=== PATIENT | male | born 1940 | race Caucasian/White ===

== ENCOUNTER 2018-09-16 10:40 | Inpatient (IN) | payer OTHER, SELFPAY ==
[2018-09-16] VITALS (36 sets, daily range): BP systolic 113–167; BP diastolic 53–77; PULSE 69–107; RESP 2–35; TEMP 36.7–38.9; O2SAT 82–98
--- NOTE | 2018-09-16 10:57 | W.ED.GENAD ---
Discharge Plan Disposition Patient Disposition: [facility] INPATIENT Condition: Stable Discharge Details Chief Complaint: SOB Clinical Impression: Carcinoma of lung, Community acquired pneumonia, URI (upper respiratory infection), Fall Primary Care Provider: Joe Quiñones ED Provider: Jake Ratliff Home Meds and New Rx's Prescriptions: No Action Flovent HFA 120 PUFF HFA aerosol inhaler 2 puff Inhalation BID Qty: 1 RF: 0 ipratropium-albuterol 3 ML solution for nebulization 3 ml UPD QID PRN PRN (Reason: Shortness Of Breath) Qty: 60 RF: 0 prednisone 10 MG tablet 40 mg PO DAILY RF: 0 multivitamin [Once Daily] 1 EACH tablet 1 tab PO DAILY RF: 0 tamsulosin 0.4 MG capsule 0.4 mg PO DAILY RF: 0 Serevent Diskus 1 EACH blister with device 1 puff Inhalation BID RF: 0 albuterol sulfate [ProAir HFA] 200 PUFF/INH HFA aerosol inhaler 2 puff Inhalation PRN PRNRF: 0 omega-3 fatty acids-fish oil [Fish Oil] 1 EACH capsule 1 cap PO DAILY RF: 0 azithromycin 250 mg Tablet 250 mg PO DAILY RF: 0 Medical Decision Making This is a pleasant 77-year-old male with a past medical history of COPD, who presents today for evaluation of cough, shortness of breath, fever. He is tachycardic, tachypneic, mildly hypoxic with O2 sat in the 88. He is not on home oxygen. Patient has very other few complaints. He has had notable cough with productive yellow sputum. Lung sounds are diminished, with rales. Physical exam demonstrates no significant signs of trauma. Because of the patient's recent falls, as well as his other symptoms we will get a CT of the head neck and chest to rule out any rib fractures, hemothorax, rule out pneumonia, acute intracranial bleed or neck pathology. I do feel that the patient is most likely suffering from community-acquired pneumonia in conjunction with a COPD exacerbation. He is already on steroids, will start Rocephin and doxycycline, give breathing treatments and reassess. He will require admission due to his respiratory status fever and other symptoms. 12:22 PM Influenza has returned negative, laboratory workup shows no significant white count, renal function stable. Troponin within normal limits, EKG shows no ST changes. Creatinine stable. Urinalysis negative for any signs of UTI 12:59 PM In spite of the patient's influenza being negative I do feel that he demonstrate signs or symptoms concerning for flu. Recommend serology, we will start Tamiflu. CT scan of the chest per virtual radiology demonstrates evidence of a notable mass in his lungs concerning for carcinoma, in addition to potential metastasis. There is also evidence of a mild right lower lobe pneumonia. CT scan of the head demonstrates a low density lesion in the right frontal lobe, consistent with cerebral contusion versus acute nonhemorrhagic infarct versus cerebral metastases. Patient's neurologic exam shows no focal neurologic deficits, and his signs and symptoms are consistent with stroke. I do feel that contusion or potential metastases are more likely. I had a long discussion with the patient and family regarding this. I do feel he is suffering from COPD exacerbation, community-acquired pneumonia, suspected influenza or viral URI, as well as potential new cancer. With no evidence of PE I do not think that thrombolytics or significant anticoagulants are indicated at this time. I discussed the case with Dr. Marsh, she agrees with the assessment and plan. We will put in bridging orders on behalf of her at this time. I have extensively reviewed the treatment plan with the patient. I have addressed all patient concerns at this time. I have also discussed the plan with the admitting physician and they agree with the current assessment and plan and have agreed to assume responsibility for the patient. All parties demonstrate verbal understanding and agreement with our assessment and plan at this time. EKG 11: 04 Rate 98 was normal, sinus rhythm, no significant ST elevations or depressions, no T wave inversions. No Q waves. FINDINGS: Pulmonary arteries: No pulmonary embolus or aortic dissection. Aorta: Normal. No aortic aneurysm. No aortic dissection. Great vessels off aortic arch: Calcification of the thoracic aorta and/or great vessels consistent with atherosclerotic vessel disease. Lungs: Interval appearance of 3.1 cm lobulated spiculated right upper lobe mass most consistent with lung carcinoma. Severe centrilobular emphysema. 8mm lateral segment right middle lobe pulmonary nodule which could represent pulmonary metastasis versus other lesion. Inferior segment lingula or atelectasis or scarring. Mild right lower lobe pneumonia. Pleural space: Normal. No pneumothorax. No pleural effusion. Heart: Moderate calcified coronary artery disease. Lymph nodes: Possible 2.3 x 1.4 cm right hilar lymph node metastasis. Bones/joints: Mild thoracic spondylosis. No obvious fractures. Soft tissues: Unremarkable. IMPRESSION: 1. Interval appearance of 3.1 cm lobulated spiculated right upper lobe mass most consistent with lung carcinoma. 2. Severe centrilobular emphysema. 3. Possible 2.3 x 1.4 cm right hilar lymph node metastasis. 4. 8mm lateral segment right middle lobe pulmonary nodule which could represent pulmonary metastasis versus other lesion. 5. Mild right lower lobe pneumonia. 6. Moderate calcified coronary artery disease. 7. No obvious fractures. 8. No pulmonary embolus or aortic dissection. Dictated and Authenticated by: Omar Rojo MD. Findings: Brain: Low-density in the right frontal lobe consistent with cerebral contusion versus acute nonhemorrhagic infarct versus other lesion such as cerebral metastasis. Ventricles: Normal. No ventriculomegaly. Bones/joints: Unremarkable. No acute fracture. Sinuses: Visualized sinuses are unremarkable. No acute sinusitis. Mastoid air cells: Visualized mastoid air cells are unremarkable. No mastoid effusion. Soft tissues: Soft tissue swelling/hematoma over the bilateral forehead, right greater than left. Impression: 1. Low-density in the right frontal lobe consistent with cerebral contusion versus acute nonhemorrhagic infarct versus other lesion such as cerebral metastasis. 2. Soft tissue swelling/hematoma over the bilateral forehead, right greater than left. HPI General Date/Time Provider Initiated Documentation: 09/16/18 10:52. HPI Narrative: This is a 77-year-old male with a past medical history of COPD, who presents today for evaluation of shortness of breath. For the last week the patient has had a cough, with productive yellow sputum. He was recently started on azithromycin and prednisone within the last 2 days. He has been taking this as directed. This evening he developed a notable fever, he became more short of breath, he denies significant chest pain. His cough is continued, but he has had a notable worsening of his symptomatology. Comes to the ER today for further evaluation. Patient denies any history of cardiac disease, pulmonary embolism, recent surgeries or procedures. Patient denies any other complaints of vomiting, diarrhea, headache, neck pain, vomiting. Patient has no other complaints at this time. Patient did not get the flu shot this year. Of note the patient also states that during [employer] 2 weeks ago he did have 1 or 2 falls, and may have hit his head or chest during this time. He denies any other falls or symptoms. Related Data Home Medications Medication Instructions Recorded Confirmed Flovent HFA 2 puff INHALATION BID #1 inh 10/15/14 09/16/18 ipratropium-albuterol 3 ml UPD QID PRN PRN #60 vial 10/15/14 09/16/18 Serevent Diskus 1 puff INHALATION BID 11/18/17 09/16/18 albuterol sulfate [ProAir HFA] 2 puff INHALATION PRN PRN 11/18/17 11/18/17 multivitamin [Once Daily] 1 tab PO DAILY 11/18/17 09/16/18 omega-3 fatty acids-fish oil [Fish 1 cap PO DAILY 11/18/17 09/16/18 Oil] prednisone 40 mg PO DAILY 11/18/17 09/16/18 tamsulosin 0.4 mg PO DAILY 11/18/17 11/18/17 azithromycin 250 mg PO DAILY 09/16/18 09/16/18 Previous Rx's Medication Instructions Recorded Flovent HFA 2 puff INHALATION BID #1 inh 10/15/14 ipratropium-albuterol 3 ml UPD QID PRN PRN #60 vial 10/15/14 Allergies Allergy/AdvReac Type Severity Reaction Status Date / Time No Known Allergies Allergy Unverified 09/16/18 10:55 General Stated Complaint: SOB CEE: 2 Review of Systems Review of Systems All systems reviewed & are unremarkable except as noted in HPI and below PFSH Social History Smoking and Tabacco status: Former Tobacco Use Exam Narrative Exam Narrative: 1.Const: Well-nourished, Well-developed, appearing stated age 2.Eyes: PERRL, no conjunctival injection, and symmetrical lids. 3.ENT: Atraumatic external nose and ears. Moist MM. Neck: Symmetric, trachea midline, No thyromegaly. Patient demonstrates good movement of cervical neck. There is no nuchal rigidity, no nuchal tenderness. Patient is able to flex the neck without any difficulty or significant pain. Negative Kernig's and Brudzinski sign. There is no evidence of raccoon eyes, red sign, CSF rhinorrhea, mastoid tenderness, cranial crepitus, hemotympanum, exophthalmos, or hyphema. 4.CVS: +S1/S2, No murmurs or gallops. Peripheral pulses 2+ and equal in all extremities. Brisk capillary refill in all extremities. Radial pulse +2 bilaterally. 5.RESP: Tachypnea, notable wheezes and rhonchi throughout, wheezes, and diminished breath sounds. Crackles in the bases. 6.GI: Soft, Nontender/Nondistended, No hepatosplenomegaly. No guarding or rebound. 7.MSK: Normocephalic/Atraumatic, Extremities w/o deformity or ttp No cyanosis or clubbing, Normal movement of all extremities. No midline tenderness to palpation over the CTLS spine. Normal ROM in flexion, extension, side bend, and rotation. Patient has +5 out of 5 strength in the lower extremities in dorsiflexion and plantarflexion, knee flexion and extension, hip flexion and extension. There is +2 over 2 dorsalis pedis pulses bilaterally. There is normal sensation to the skin with light touch at the foot, knee, and hip. Normal saddle sensation. Good sensation over the deep sural nerve area bilaterally. Rectal exam deferred. Reflexes are +2 over 4 in the patellar reflex bilaterally. +5 out of 5 strength in the medial, ulnar, radial nerve distribution bilaterally in the hands as well as intact light touch sensation to these dermatomes on the hands 8.Skin: Warm, Dry. No rashes or lesions. 9.Neuro: inspector type II-XII grossly intact. Sensation grossly intact, no focal neurologic deficits. 10.Psych: (AAO) x3. Appropriate mood and affect Course Vital Signs Temperature 38.9 C H 09/16/18 10:49 Pulse 106 H 09/16/18 10:49 Respiratory Rate 34 H 09/16/18 10:49 Blood Pressure 167/77 H 09/16/18 10:49 Pulse Oximetry 82 L 09/16/18 10:49 Temperature 38.9 C H 09/16/18 10:49 Temperature Source Skin 09/16/18 10:49 Pulse 106 H 09/16/18 10:49 Respiratory Rate 34 H 09/16/18 10:49 Respiratory Effort Labored 09/16/18 10:52 Blood Pressure 167/77 H 09/16/18 10:49 Pulse Oximetry 82 L 09/16/18 10:49 Pain Level 2 09/16/18 10:49 Lab/Test Results Lab/Test Results: 09/16/18 10:53 Blood Blood Culture - Pending 09/16/18 10:53 Blood Blood Culture - Pending
[2018-09-16] MEDS: Normal Saline 1,000 ML 1000 ML IV (11:05)
[2018-09-16] MEDS: Albuterol/Ipratropium 3 ML UPD VIAL UPD ×3 (11:05→23:18)
[2018-09-16 11:08] LABS: HCO3 (Venous) 29 mmol/L (22-28); O2 Sat (Venous) 77 % (70-80); TCO2 (Venous) 26 mmol/L (22-29); pCO2 (Venous) 43 mm/Hg (34-47); pH (Venous) 7.44 (7.32-7.43); pO2 (Venous) 40 mm/Hg (28-44)
[2018-09-16] MEDS: methylPREDNISolone SUCC 125 MG VIAL IVP (11:09)
[2018-09-16] MEDS: Acetaminophen 500 MG TAB 1000 MG PO (11:10)
[2018-09-16 11:17] LABS: Abs Immature Grans 0.02 k/cumm (0.0-0.09); Absolute Basophil Count 0.01 k/cumm (0.0-0.2); Absolute Lymphocyte Count 0.41 k/cumm (1.2-3.4); Absolute Monocyte Count 0.56 k/cumm (0.11-0.7); Basophils % 0.1; HCT 40.7 % (40.0-50.0); HGB 13.7 g/dL (13.5-17.5); Immature Grans % 0.3; Lymphocytes % 5.6; Mean Corp. HGB Concentration 33.7 g/dL (32.0-36.0); Mean Corpuscular Hemoglobin 31.4 pg (27.0-33.0); Mean Corpuscular Volume 93.3 fL (80-95); Mean Platelet Volume 8.7 fL (8.0-11.0); Monocytes % 7.7; Neutrophils % 86.3; Platelet Count 275 x1000/uL (130-400); RBC 4.36 m/cumm (4.50-6.00); RBC Distribution Width 13.5 % (11.8-14.1)
[2018-09-16 11:26] LABS: ALT 31 U/L (12-78); AST 34 U/L (15-37); Albumin 3.2 g/dL (3.4-5.0); Alkaline Phosphatase 127 U/L (46-116); BUN 23 mg/dL (7-18); Bilirubin, Total 0.4 mg/dL (0.2-1.0); CREATININE 1.11 mg/dL (0.70-1.30); Calcium 8.6 mg/dL (8.5-10.1); Chloride 105 mmol/L (98-107); Glucose 96 mg/dL (70-100); Sodium 142 mmol/L (136-145); Total Protein 6.6 g/dL (6.4-8.2); Troponin I 0.04 ng/mL (0.00-0.06)
[2018-09-16] MEDS: DOXYCYCLINE 100 MG in Normal Saline 100 ML IVPB ×2 (11:35→23:18)
[2018-09-16 11:39] LABS: Bilirubin Negative (Negative); Blood Negative (Negative); Clarity Clear; Glucose Negative (Negative); Ketones 15 mg/dL (Negative); Leukocyte Esterase Negative (Negative); Nitrite Negative (Negative); Specific Gravity 1.025 (1.005-1.025); Urobilinogen 0.2 EU/dL (Up TO 0.2); pH 5.5 (5-8)
--- NOTE | 2018-09-16 12:05 | DI.CT_ITS ---
SYMPTOMS/DIAGNOSIS: HIT HEAD ON RECENT FALL NONCONTRAST HEAD CT: There are no prior comparison exams. There is an area of low attenuation seen in the right frontal lobe anteriorly, just above the level of the orbit. The findings could represent sequelae of brain contusion. An area of infarct or mass cannot be excluded. There is no significant mass effect on the ventricles, which are normal in size. No intracranial hemorrhage or skull fracture is seen. The sinuses and mastoid air cells appear clear. IMPRESSION: Area of low attenuation in the right frontal lobe could represent sequelae of cerebral contusion or represent an area of old or subacute infarction versus mass. MRI is recommended for further evaluation. CT OF THE CERVICAL SPINE: There are no prior comparison exams. There is no evidence of fracture or subluxation. There are degenerative disc changes and facet degenerative changes causing neural foraminal narrowing. There is no significant central canal stenosis. No lytic or blastic bony lesions are seen. Emphysematous changes are noted in the lung apices. There is a large spiculated mass in the right upper lobe measuring 3.1 cm in diameter, suspicious for lung carcinoma. IMPRESSION: No acute bony abnormality in the spine. A 3.1 cm suspicious right upper lobe pulmonary mass is noted.
--- NOTE | 2018-09-16 12:12 | DI.CT_ITS ---
SYMPTOM/DIAGNOSIS: COUGH, FEVER, SOB, RECENT FALL, CHEST PAIN PE CHEST CT: CT angiography was performed with multi slice acquisition and multi planar and 3D reconstruction. The pulmonary arteries and aorta are well opacified with IV contrast and there is no evidence of pulmonary emboli or aortic dissection. Coronary artery and aortic calcifications are seen. There is motion at the aortic root. There is a 3.1 cm. spiculated mass in the right lung apex close to the pleura. There is slight adjacent pleural thickening. An additional 8 mm. nodule is seen laterally in the right middle lobe. There is a nonspecific 4 mm. nodule seen in the inferior lateral right upper lobe. Patchy densities are noted at the right lung base which could represent atelectasis versus pneumonia. A linear area of atelectasis is seen in the lingula. There are underlying emphysematous changes. There is mild right hilar lymph node enlargement, 2.3 by 1.4 cm. No pleural or pericardial effusions, pneumothorax or fractures are seen. Degenerative changes are seen in the spine. No lytic or blastic bony lesions are identified. The visualized portions of the upper abdominal organs are unremarkable. IMPRESSION: 3.1 cm. mass in the right upper lobe is suspicious for primary carcinoma. There is an additional 8 mm. nodule which could represent a metastatic nodule or additional primary. 4 mm. right upper lobe nodule is nonspecific. There is mild right hilar adenopathy.
[2018-09-16] MEDS: Omnipaque 350 MG/ML 100 ML BTL IJ (12:13)
[2018-09-16] MEDS: Normal Saline Flush 10 ML SYR IVP (12:14)
--- NOTE | 2018-09-16 12:31 | DI.VRAD_ITS ---
EXAM: CT Head Without Contrast EXAM DATE/TIME: 09/16/2018 10:55 AM CLINICAL HISTORY: 77 years old, male; Injury or trauma; Fall; Initial encounter; Blunt trauma TECHNIQUE: Axial computed tomography images of the head/brain without contrast. Coronal and sagittal reformatted images were created and reviewed. COMPARISON: No relevant prior studies available. FINDINGS: Brain: Low-density in the right frontal lobe consistent with cerebral contusion versus acute nonhemorrhagic infarct versus other lesion such as cerebral metastasis. Ventricles: Normal. No ventriculomegaly. Bones/joints: Unremarkable. No acute fracture. Sinuses: Visualized sinuses are unremarkable. No acute sinusitis. Mastoid air cells: Visualized mastoid air cells are unremarkable. No mastoid effusion. Soft tissues: Soft tissue swelling/hematoma over the bilateral forehead, right greater than left. IMPRESSION: 1. Low-density in the right frontal lobe consistent with cerebral contusion versus acute nonhemorrhagic infarct versus other lesion such as cerebral metastasis. 2. Soft tissue swelling/hematoma over the bilateral forehead, right greater than left. EXAM: CT Cervical Spine Without Contrast EXAM DATE/TIME: 09/16/2018 10:55 AM CLINICAL HISTORY: 77 years old, male; Injury or trauma; Fall; Initial encounter; Blunt trauma TECHNIQUE: Axial computed tomography images of the cervical spine without intravenous contrast. Coronal and sagittal reformatted images were created and reviewed. COMPARISON: No relevant prior studies available. FINDINGS: Vertebrae: Mild to moderate multilevel degenerative changes including degenerative disc disease, spondylosis and facet degenerative changes. Discs/Spinal canal/Neural foramina: Multilevel bilateral foraminal stenosis. There is C1-C2 pseudotumor which can be seen in elderly patients with arthritis. Soft tissues: Unremarkable. Lungs: 3.1 cm lobulated spiculated right upper lobe mass most consistent with lung carcinoma. Severe centrilobular emphysema. Other findings: No acute C-spine findings. IMPRESSION: 1. No acute C-spine findings. 2. 3.1 cm lobulated spiculated right upper lobe mass most consistent with lung carcinoma. 3. Severe centrilobular emphysema. 4. Multilevel bilateral foraminal stenosis. 5. Mild to moderate multilevel degenerative changes including degenerative disc disease, spondylosis and facet degenerative changes. Dictated and Authenticated by: Omar Rojo MD. Ordering:HUANG Joseph MD
--- NOTE | 2018-09-16 12:35 | DI.VRAD_ITS ---
EXAM: CT Angiography Chest With Contrast EXAM DATE/TIME: 09/16/2018 10:55 AM CLINICAL HISTORY: 77 years old, male; Injury or trauma; Fall; Initial encounter; Blunt trauma (contusions or hematomas) TECHNIQUE: Axial computed tomographic angiography images of the chest with intravenous contrast using CT angiography protocol. Coronal and sagittal reformatted images were created and reviewed. MIP reconstructed images were created and reviewed. COMPARISON: CR CHEST 2 VIEWS PA,LAT 11/18/2017 1:35 PM FINDINGS: Pulmonary arteries: No pulmonary embolus or aortic dissection. Aorta: Normal. No aortic aneurysm. No aortic dissection. Great vessels off aortic arch: Calcification of the thoracic aorta and/or great vessels consistent with atherosclerotic vessel disease. Lungs: Interval appearance of 3.1 cm lobulated spiculated right upper lobe mass most consistent with lung carcinoma. Severe centrilobular emphysema. 8mm lateral segment right middle lobe pulmonary nodule which could represent pulmonary metastasis versus other lesion. Inferior segment lingula or atelectasis or scarring. Mild right lower lobe pneumonia. Pleural space: Normal. No pneumothorax. No pleural effusion. Heart: Moderate calcified coronary artery disease. Lymph nodes: Possible 2.3 x 1.4 cm right hilar lymph node metastasis. Bones/joints: Mild thoracic spondylosis. No obvious fractures. Soft tissues: Unremarkable. IMPRESSION: 1. Interval appearance of 3.1 cm lobulated spiculated right upper lobe mass most consistent with lung carcinoma. 2. Severe centrilobular emphysema. 3. Possible 2.3 x 1.4 cm right hilar lymph node metastasis. 4. 8mm lateral segment right middle lobe pulmonary nodule which could represent pulmonary metastasis versus other lesion. 5. Mild right lower lobe pneumonia. 6. Moderate calcified coronary artery disease. 7. No obvious fractures. 8. No pulmonary embolus or aortic dissection. Dictated and Authenticated by: Omar Rojo MD. Ordering:HUANG Joseph MD
[2018-09-16] MEDS: Oseltamivir 75 MG CAP PO ×2 (13:25→19:47)
[2018-09-16] MEDS: Normal Saline 1,000 ML 100 ML IV (14:31)
[2018-09-16] MEDS: Benzonatate 100 MG CAP PO ×2 (14:31→19:47)
--- NOTE | 2018-09-16 16:19 | W.PM.HP.N ---
Date of service: 09/16/18 Time of Service: 16:21 Assessment and Plan (1) Lung cancer: Start date: 09/16/18 Start time: 16:34 Current visit: Yes Status: Chronic new diagnosis, CXR revealing 3.1 cm lobulated spiculated right upper lobe mass most consistent with lung carcinoma. CT with questionable with mets to brain, acute nonhemorrhagic infarct versus other lesion such as cerebral metastasis. MRI for tuesday. (2) CAP (community acquired pneumonia): Start date: 09/16/18 Start time: 16:35 Current visit: Yes Status: Acute Failed outpatient treatment of azithromycin, currently on oxygen 2 L for low Sp02 in ED, started on doxy and rocephin, nebs, updraft and steroids started, sputum cx pending and blood cx pending. (3) COPD exacerbation: Start date: 09/16/18 Start time: 16:34 Current visit: Yes Status: Acute secondary in the setting of CAP. nebs with steroids and symbicort. (4) Limited mobility: Start date: 09/16/18 Start time: 16:36 Current visit: Yes Status: Acute unable to have FROM in bilateral shoulders. ambulatory with out difficulty. lidoderm patches ordered (5) Advance directive in chart: Start date: 09/16/18 Start time: 16:37 Current visit: Yes Status: Acute DNR/DNI (6) DVT prophylaxis: Start date: 09/16/18 Start time: 16:37 Current visit: Yes Status: Acute SCD and TEDs History of Present Illness Chief Complaint: Community Acquired Pneumonia, Hypoxia, COPD Exacerbation, Cough Narrative: Mr. Cabello is a 77 yo male with past medical history of COPD who presents today with worsening SOB, cough, congestion after 3 weeks. Upon arrival to the ED he was tachypneic, tachycardic, with O2 88%. Mr. Cabello is a retired [employer] former, with a past medical history of COPD from smoking he quit 10 years ago. He was seen in his PCP office two days ago for a cough with SOB and sputum production that had been ongoing for approx 3 weeks without improvment. He was started on azithromycin, he took one dose, then he states last night he started feeling worse and everything came to ahead. He could not breath, he was coughing and decided to come to [facility] emergency department. He has been asked to be admitted by our service for CAP and COPD exacerbation. He was started on nebs, updraft, doxy and cefitriaxone, steroids, symbicort. Sputum culture is ordered and blood cultures we will monitor and treat as resulted. There is question on Chest XR of carcinoma, 3.1 cm lobulated spiculated right upper lobe mass most consistent with lung carcinoma with possible mets to the brain, CT of Head revealed acute nonhemorrhagic infarct versus other lesion such as cerebral metastasis. MRI has been ordered for further evaluation. He has limited mobility in both shoulders right worse then left. Lidoderm patches for both shoulders have been ordered. PT/OT has been ordered. Review of Systems Review of Systems All systems reviewed & are unremarkable except as noted in HPI and below Constitutional Reports system reviewed and no additional complaints, except as docu and Reports other Comments: cachetic Eyes Reports system reviewed and no additional complaints, except as docu ENT Reports system reviewed and no additional complaints, except as docu Cardiovascular Reports system reviewed and no additional complaints, except as docu Respiratory Reports as per HPI Gastrointestinal Reports system reviewed and no additional complaints, except as docu Musculoskeletal Reports as per HPI Integumentary/Breasts Reports system reviewed and no additional complaints, except as docu Neurologic Reports system reviewed and no additional complaints, except as docu Endocrine Reports system reviewed and no additional complaints, except as docu Hematologic/Lymphatic Reports system reviewed and no additional complaints, except as docu PFSH Social History Smoking and Tabacco status: Former Tobacco Use Meds Home Medications Medication Instructions Recorded Confirmed Type Flovent HFA 2 puff INHALATION BID #1 inh 10/15/14 09/16/18 Rx ipratropium-albuterol 3 ml UPD QID PRN PRN #60 vial 10/15/14 09/16/18 Rx Serevent Diskus 1 puff INHALATION BID 11/18/17 09/16/18 History albuterol sulfate [ProAir HFA] 2 puff INHALATION PRN PRN 11/18/17 11/18/17 History multivitamin [Once Daily] 1 tab PO DAILY 11/18/17 09/16/18 History omega-3 fatty acids-fish oil [Fish 1 cap PO DAILY 11/18/17 09/16/18 History Oil] prednisone 40 mg PO DAILY 11/18/17 09/16/18 History tamsulosin 0.4 mg PO DAILY 11/18/17 09/16/18 History azithromycin 250 mg PO DAILY 09/16/18 09/16/18 History Allergies Allergy/AdvReac Type Severity Reaction Status Date / Time No Known Allergies Allergy Unverified 09/16/18 10:55 Exam Narrative Exam Narrative: Pleasant male sitting up in chair, cachetic, admits to 5 lb wt loss only Const General: cooperative, comfortable and no acute distress Neck Neck: normal visual inspection Chest Chest: normal inspection of the chest Resp Effort & Inspection: normal respiratory effort and able to speak in complete sentences Auscultation: diminished lung sounds, rhonchi and wheezes Cardio Jugular venous pressure: no JVD Palpation: normal PMI Rate: regular rate Rhythm: regular rhythm Heart Sounds: S1 normal and S2 normal GI Inspection: normal to inspection Palpation: soft Auscultation: normal bowel sounds Skin General skin exam: no rashes or lesions noted Extrem Other: limited mobility to bilateral shoulders right worse than left. Results Labs : 09/16/18 11:00 09/16/18 11:00 Laboratory Results - last 24 hr 09/16/18 09/16/18 09/16/18 11:00 11:00 11:00 WBC 7.30 RBC 4.36 L Hgb 13.7 Hct 40.7 MCV 93.3 MCH 31.4 MCHC 33.7 RDW 13.5 Plt Count 275 MPV 8.7 Immature Gran % 0.3 Neutrophils % 86.3 Lymphocytes % 5.6 Monocytes % 7.7 Eosinophils % 0.0 Basophils % 0.1 Absolute Neutrophils 6.30 Absolute Lymphocytes 0.41 L Absolute Monocytes 0.56 Absolute Eosinophils 0.00 Absolute Basophils 0.01 VBG pH VBG pCO2 VBG pO2 VBG HCO3 VBG Total CO2 VBG O2 Saturation VBG Base Excess Sodium 142 Potassium 4.0 Chloride 105 Carbon Dioxide 32.0 Anion Gap 5.0 BUN 23 H Creatinine 1.11 Estimated GFR/1.73 m2 >= 60.00 Glucose 96 Lactate 1.0 Calcium 8.6 Total Bilirubin 0.4 AST 34 ALT 31 Alkaline Phosphatase 127 H Troponin I 0.04 Total Protein 6.6 Albumin 3.2 L Urine Color Urine Clarity Urine pH Ur Specific [place] Urine Protein Urine Ketones Urine Blood Urine Nitrite Urine Bilirubin Urine Urobilinogen Ur Leukocyte Esterase Urine Glucose 09/16/18 09/16/18 11:00 11:30 WBC RBC Hgb Hct MCV MCH MCHC RDW Plt Count MPV Immature Gran % Neutrophils % Lymphocytes % Monocytes % Eosinophils % Basophils % Absolute Neutrophils Absolute Lymphocytes Absolute Monocytes Absolute Eosinophils Absolute Basophils VBG pH 7.44 H VBG pCO2 43 VBG pO2 40 VBG HCO3 29 H VBG Total CO2 26 VBG O2 Saturation 77 VBG Base Excess 5.0 H Sodium Potassium Chloride Carbon Dioxide Anion Gap BUN Creatinine Estimated GFR/1.73 m2 Glucose Lactate Calcium Total Bilirubin AST ALT Alkaline Phosphatase Troponin I Total Protein Albumin Urine Color Yellow Urine Clarity Clear Urine pH 5.5 Ur Specific [place] 1.025 Urine Protein Negative Urine Ketones 15 H Urine Blood Negative Urine Nitrite Negative Urine Bilirubin Negative Urine Urobilinogen 0.2 Ur Leukocyte Esterase Negative Urine Glucose Negative Last Vital Signs Temp 36.7 C 09/16/18 16:07 Pulse 74 09/16/18 16:07 Resp 19 09/16/18 16:07 BP 117/69 09/16/18 16:07 Pulse Ox 98 09/16/18 16:07
[2018-09-16] MEDS: methylPREDNISolone SUCC 125 MG VIAL 80 MG IVP (19:46)
[2018-09-16] MEDS: guaiFENesin 600 MG TABCR PO (19:47)
[2018-09-16] MEDS: Budesonide/Formoterol 160/4.5 6 GM 60 PUFF INH IH (19:48)
[2018-09-17] VITALS (11 sets, daily range): BP systolic 118–141; BP diastolic 60–78; PULSE 68–91; RESP 1–20; TEMP 36.2–37.6; O2SAT 91–98
[2018-09-17] MEDS: Normal Saline 1,000 ML 100 ML IV ×2 (01:12→12:18)
[2018-09-17] MEDS: methylPREDNISolone SUCC 125 MG VIAL 80 MG IVP ×3 (03:06→20:51)
[2018-09-17] MEDS: Albuterol/Ipratropium 3 ML UPD VIAL UPD ×3 (05:14→17:08)
[2018-09-17 07:50] LABS: Abs Immature Grans 0.01 k/cumm (0.0-0.09); Absolute Lymphocyte Count 0.28 k/cumm (1.2-3.4); Absolute Monocyte Count 0.14 k/cumm (0.11-0.7); Absolute Neutrophil Count 6.69 k/cumm (1.2-6.7); HCT 37.3 % (40.0-50.0); HGB 12.5 g/dL (13.5-17.5); Immature Grans % 0.1; Lymphocytes % 3.9; Mean Corp. HGB Concentration 33.5 g/dL (32.0-36.0); Mean Corpuscular Hemoglobin 31.6 pg (27.0-33.0); Mean Corpuscular Volume 94.4 fL (80-95); Mean Platelet Volume 9.2 fL (8.0-11.0); Platelet Count 250 x1000/uL (130-400); RBC 3.95 m/cumm (4.50-6.00); RBC Distribution Width 13.6 % (11.8-14.1); White Blood Cell Count 7.12 k/cumm (4.4-10.8)
[2018-09-17 07:57] LABS: Anion Gap 10.2 mmol/L (3-11); BUN 23 mg/dL (7-18); CO2 25.8 mmol/L (21.0-32.0); CREATININE 0.87 mg/dL (0.70-1.30); Calcium 8.5 mg/dL (8.5-10.1); Chloride 110 mmol/L (98-107); Glucose 139 mg/dL (70-100); Magnesium 1.9 mg/dL (1.8-2.4); Potassium 4.1 mmol/L (3.5-5.1); Sodium 146 mmol/L (136-145)
[2018-09-17] MEDS: Acetaminophen 325 MG TAB PO (08:07)
[2018-09-17] MEDS: Lidocaine 5% Patch 2 PATCH TP (08:07)
[2018-09-17] MEDS: Tamsulosin 0.4 MG CAPCR PO (08:08)
[2018-09-17] MEDS: Pantoprazole 40 MG TABCR PO (08:08)
[2018-09-17] MEDS: guaiFENesin 600 MG TABCR PO ×2 (08:09→20:52)
[2018-09-17] MEDS: Oseltamivir 75 MG CAP PO ×2 (08:09→20:52)
[2018-09-17] MEDS: Benzonatate 100 MG CAP PO ×3 (08:09→20:52)
[2018-09-17] MEDS: Budesonide/Formoterol 160/4.5 6 GM 60 PUFF INH IH ×2 (09:11→20:51)
[2018-09-17 09:56] LABS: Troponin I 0.03 ng/mL (0.00-0.06)
[2018-09-17] MEDS: DOXYCYCLINE 100 MG in Normal Saline 100 ML IVPB (12:17)
--- NOTE | 2018-09-17 13:25 | PDOC.CMIN ---
- If Service Date Differs Date of service: 09/17/18 Time of Service: 13:25 Care Management Initial Assess REASON FOR HOSPITALIZATION:: Lung cancer, CAP, COPD PAST MEDICAL HISTORY/PAST SURGICAL HISTORY:: COPD PREVIOUS FUNCTIONAL STATUS/SOCIAL/FAMILY SUPPORTS:: Radha resides with his Rolando in [facility]. At baseline Radha is independent, he drives, and manages ADL's CURRENT FUNCTIONAL STATUS:: Sitting up this morning, Rolando is in the room with him. ADVANCE DIRECTIVES:: None on file Has patient been provided with information about the portal?: Yes Did the patient sign up for the portal?: No CODE STATUS:: DNR/DNI INSURANCE COVERAGE / FINANCIAL ISSUES:: [facility] CURRENT HOME/COMMUNITY SERVICES/EQUIPMENT:: Currently Radha has no services or medical equipment in the community. PRIMARY CARE PHYSICIAN:: Dr. Quiñones POTENTIAL DISCHARGE NEEDS:: F/U appointment with PCP PATIENT/FAMILY EDUCATION NEEDS:: Review DC instructions, any limitations, and ongoing DC planning discussion. ANTICIPATED BARRIERS TO DISCHARGE:: None identified at this time TRANSPORTATION:: Via private vehicle with robert Marshall PLAN:: Radha will return home with no anticipated services once medically cleared. He will have a PT/OT eval while inpatient. Radha to F/U with PCP and plan of care as prescribed.
--- NOTE | 2018-09-17 14:02 | PGE_ITS ---
Documented by User: Aidee Rosales NP 09/17/18 14:55 Date of Service Date of service: 09/17/18 Time of Service: 14:00 Assessment and Plan (1) Lung cancer: Current visit: Yes Status: Chronic new diagnosis, CT revealing 3.1 cm lobulated spiculated right upper lobe mass most consistent with lung carcinoma. Additionally an 8mm lateral segment right middle lobe pulmonary nodule which could represent pulmonary metastasis versus other lesion was found. The head/cervical spine CT revealed low-density in the right frontal lobe consistent with cerebral contusion versus acute nonhemorrhagic infarct versus other lesion such as cerebral metastasis. MRI for tuesday. (2) CAP (community acquired pneumonia): Current visit: Yes Status: Acute Failed outpatient treatment of azithromycin. Currently on oxygen 2 L. O2 sat 97%. Plan to wean 02 to RA and to maintain 02 Sat of 92% or greater. Continue with Doxycycline and Ceftriaxone. Continue with neb updrafts as needed, expectorants, and IV steroids for now. Despite negative rapid Flu PCR. Awaiting PCR send out results - Continue with Tamiflu coverage and droplet/contact precautions. Sputum and Blood culture results pending Pending Streptococcus Pneumiae Ag and Legionella Ag results. (3) COPD exacerbation: Current visit: Yes Status: Acute Secondary in the setting of CAP. Continue with nebulizers, IV steroids, expectorants, and symbicort. (4) Limited mobility: Current visit: Yes Status: Acute PROM in bilateral shoulders. PT/OT evaluations ordered. Continue with lidoderm patches and acetaminophen for discomfort. Ambulating without difficulty. (5) Advance directive in chart: Current visit: Yes Status: Acute DNR/DNI (6) DVT prophylaxis: Current visit: Yes Status: Acute SCD and TEDs Subjective Interval history since last seen: States that he feels better. However continues to have congested nonproductive cough and mild PUENTE with ambulation. He endorses that he has home O2 that was given to him by a friend. Teaching regarding the dangers of self administering 02 at home without prescription or supervision through his PCP was explained. He agreed to not use the oxygen and verbally acknowledged he would follow up with his PCP. Of note his was at the bedside during this discussion and also acknowledged this teaching. He continues to complain of poor bilateral shoulder movement and pain. States it is chronic and related to arthritis. Afebrile since admission. Denies chest pain or palpitations. Denies abdominal pain, nausea or vomiting. No urinary complaints. Exam Narrative Exam Narrative: Pleasant male sitting up in chair, cachetic, able to speak in full sentences without distress Const General: cooperative, comfortable and no acute distress Other: Pleasant and cooperative. Alert and oriented x3. No acute distress. HENMT Head: normal to inspection and normocephalic Eyes General: appearance normal, both eyes and all related structures EOM: EOM intact bilaterally Neck Neck: normal visual inspection and supple Chest Chest: normal inspection of the chest Resp Effort & Inspection: normal respiratory effort, able to speak in complete sentences and no respiratory distress Auscultation: diminished lung sounds and rhonchi lower bilaterally Cardio Jugular venous pressure: no JVD Palpation: normal PMI Rate: regular rate Rhythm: regular rhythm Heart Sounds: S1 normal and S2 normal GI Inspection: normal to inspection Palpation: soft Auscultation: normal bowel sounds Skin General skin exam: no rashes or lesions noted Neuro General: alert, oriented x3 and moves all extremities Cranial Nerves: CN's II-XI intact bilaterally Cognition: normal cognition Speech: speech normal Sensory Exam: no sensory deficits noted Extrem General: normal to inspection Other: PROM bilateral shoulders. Right worse than left. Lidocaine patches intact to bilateral shoulder areas. Objective Objective Clinical Data: Abnormal lab results 09/17/18 09/17/18 Range/Units 07:00 07:00 RBC 3.95 L (4.50-6.00) m/cumm Hgb 12.5 L (13.5-17.5) g/dL Hct 37.3 L (40.0-50.0) % Absolute Lymphocytes 0.28 L (1.2-3.4) k/cumm Sodium 146 H (136-145) mmol/L Chloride 110 H (98-107) mmol/L BUN 23 H (7-18) mg/dL Glucose 139 H (70-100) mg/dL Vital Signs Temperature 36.9 C 09/17/18 12:12 Temperature Source Tympanic 09/17/18 12:12 Pulse 68 09/17/18 12:12 Pulse Rhythm Regular 09/17/18 10:39 Pulse 84 09/16/18 13:40 Respiratory Rate 20 09/17/18 12:12 Respiratory Effort Incrsd Work of Breathing 09/17/18 10:39 Respiratory Depth Shallow 09/17/18 10:39 Respiratory Pattern Normal 09/17/18 10:39 Blood Pressure 118/63 09/17/18 12:12 Blood Pressure Mean 72 09/16/18 11:45 Pulse Oximetry 97 09/17/18 12:12 Oxygen Delivery Method Nasal Cannula 09/17/18 12:12 Oxygen Flow Rate 2 09/17/18 12:12 Pain Level 0 09/16/18 18:32 Intake & Output 09/16/18 09/17/18 09/17/18 23:59 11:59 23:59 Intake Total 2052. 1246.667 / 1246.667 Output Total 1050 / 1050 1050 / 1050 Balance 953.333 / 1003.333 196.667 / 196.667 Weight 62.7 kg 63 kg Intake: IV 1246.667 / 1246.667 Output: Urine 1050 / 1050 1050 / 1050 Other: Urine Color Yellow Yellow Urine Appearance Cloudy Clear Urine Odor Normal Comment unmeasured mixed with stool Stool Size Large Stool Characteristics Soft Formed Voiding Methods Toilet Toilet Laboratory Results WBC 7.12 k/cumm (4.4-10.8) 09/17/18 07:00 RBC 3.95 m/cumm (4.50-6.00) L 09/17/18 07:00 Hgb 12.5 g/dL (13.5-17.5) L 09/17/18 07:00 Hct 37.3 % (40.0-50.0) L 09/17/18 07:00 MCV 94.4 fL (80-95) 09/17/18 07:00 MCH 31.6 pg (27.0-33.0) 09/17/18 07:00 MCHC 33.5 g/dL (32.0-36.0) 09/17/18 07:00 RDW 13.6 % (11.8-14.1) 09/17/18 07:00 Plt Count 250 x1000/uL (130-400) 09/17/18 07:00 MPV 9.2 fL (8.0-11.0) 09/17/18 07:00 Immature Gran % 0.1 09/17/18 07:00 Neutrophils % 94.0 09/17/18 07:00 Lymphocytes % 3.9 09/17/18 07:00 Monocytes % 2.0 09/17/18 07:00 Eosinophils % 0.0 09/17/18 07:00 Basophils % 0.0 09/17/18 07:00 Absolute Neutrophils 6.69 k/cumm (1.2-6.7) 09/17/18 07:00 Absolute Lymphocytes 0.28 k/cumm (1.2-3.4) L 09/17/18 07:00 Absolute Monocytes 0.14 k/cumm (0.11-0.7) 09/17/18 07:00 Absolute Eosinophils 0.00 k/cumm (0.0-0.7) 09/17/18 07:00 Absolute Basophils 0.00 k/cumm (0.0-0.2) 09/17/18 07:00 VBG pH 7.44 (7.32-7.43) H 09/16/18 11:00 VBG pCO2 43 mm/Hg (34-47) 09/16/18 11:00 VBG pO2 40 mm/Hg (28-44) 09/16/18 11:00 VBG HCO3 29 mmol/L (22-28) H 09/16/18 11:00 VBG Total CO2 26 mmol/L (22-29) 09/16/18 11:00 VBG O2 Saturation 77 % (70-80) 09/16/18 11:00 VBG Base Excess 5.0 mmol/L (-3-3) H 09/16/18 11:00 Sodium 146 mmol/L (136-145) H 09/17/18 07:00 Potassium 4.1 mmol/L (3.5-5.1) 09/17/18 07:00 Chloride 110 mmol/L (98-107) H 09/17/18 07:00 Carbon Dioxide 25.8 mmol/L (21.0-32.0) 09/17/18 07:00 Anion Gap 10.2 mmol/L (3-11) 09/17/18 07:00 BUN 23 mg/dL (7-18) H 09/17/18 07:00 Creatinine 0.87 mg/dL (0.70-1.30) 09/17/18 07:00 Estimated GFR/1.73 m2 >= 60.00 (mL/min/1.73m2) 09/17/18 07:00 Glucose 139 mg/dL (70-100) H 09/17/18 07:00 Lactate 1.0 mmol/l (0.6-1.4) 09/16/18 11:00 Calcium 8.5 mg/dL (8.5-10.1) 09/17/18 07:00 Magnesium 1.9 mg/dL (1.8-2.4) 09/17/18 07:00 Total Bilirubin 0.4 mg/dL (0.2-1.0) 09/16/18 11:00 AST 34 U/L (15-37) 09/16/18 11:00 ALT 31 U/L (12-78) 09/16/18 11:00 Alkaline Phosphatase 127 U/L (46-116) H 09/16/18 11:00 Troponin I 0.03 ng/mL (0.00-0.06) 09/17/18 07:00 Total Protein 6.6 g/dL (6.4-8.2) 09/16/18 11:00 Albumin 3.2 g/dL (3.4-5.0) L 09/16/18 11:00 Urine Color Yellow (Yellow) 09/16/18 11:30 Urine Clarity Clear 09/16/18 11:30 Urine pH 5.5 (5-8) 09/16/18 11:30 Ur Specific [place] 1.025 (1.005-1.025) 09/16/18 11:30 Urine Protein Negative mg/dL (Negative) 09/16/18 11:30 Urine Ketones 15 mg/dL (Negative) H 09/16/18 11:30 Urine Blood Negative (Negative) 09/16/18 11:30 Urine Nitrite Negative (Negative) 09/16/18 11:30 Urine Bilirubin Negative (Negative) 09/16/18 11:30 Urine Urobilinogen 0.2 EU/dL (Up TO 0.2) 09/16/18 11:30 Ur Leukocyte Esterase Negative (Negative) 09/16/18 11:30 Urine Glucose Negative mg/dL (Negative) 09/16/18 11:30 EXAM: CT Angiography Chest With Contrast EXAM DATE/TIME: 09/16/2018 10:55 AM IMPRESSION: 1. Interval appearance of 3.1 cm lobulated spiculated right upper lobe mass most consistent with lung carcinoma. 2. Severe centrilobular emphysema. 3. Possible 2.3 x 1.4 cm right hilar lymph node metastasis. 4. 8mm lateral segment right middle lobe pulmonary nodule which could represent pulmonary metastasis versus other lesion. 5. Mild right lower lobe pneumonia. 6. Moderate calcified coronary artery disease. 7. No obvious fractures. 8. No pulmonary embolus or aortic dissection. Dictated and Authenticated by: Omar Rojo MD. EXAM: CT Head Without Contrast EXAM DATE/TIME: 09/16/2018 10:55 AM IMPRESSION: 1. Low-density in the right frontal lobe consistent with cerebral contusion versus acute nonhemorrhagic infarct versus other lesion such as cerebral metastasis. 2. Soft tissue swelling/hematoma over the bilateral forehead, right greater than left. Documented by User: Blanche Jameson MD 09/18/18 18:13
--- NOTE | 2018-09-17 15:47 | PT.INIE ---
Date of service: 09/17/18 Time of Service: 15:47 PT Notes Inpatient Physical Therapy Evaluation Date: 09/17/2018 Referring Doctor: Blanche Jameson MD PT Orders: PT CONSULT: Evaluate and treat Precautions: Falls Patient Profile/Admitting Diagnosis: A 77-year-old male admitted recently with pneumonia. PMHX: Bilateral rotator cuff tendinopathy and adhesive capsules Social History/Home Situation: Lives at home with his , is retired from [employer] Current Functional Limitations: Has difficulty performing activities at or above shoulder level or behind his back. He has difficulty sleeping on his side for more than 15 or 20 minutes Equipment Owned/DME: Lives on the second floor, 7 steps to the upstairs bedroom. He has a shower/tub which she is capable of using, but generally takes sponge baths. Subjective: Pleasant, cooperative male with complaints of bilateral shoulder dysfunction, and general fatigue shortness of breath although he notes significant improvements compared to yesterday. Objective: [] General Observation: No abnormal pain behavior noted Mental Status: Alert and oriented x3 Pain: Complains of intermittent discomfort throughout the lateral aspect of his humeri when attempting active movements with his shoulders Vital Signs: His resting pulse is 88 bpm and O2 sat is 95%; following ambulation his pulse is 95 bpm and O2 sat is 91% ROM: Cervical spine motion is limited with an articular pattern with rotation approximately 15-20 degrees and side bending at 10 degrees but without pain on movement or reproduction of his symptoms. His active shoulder movements are limited to less than 45 degrees associated with excessive scapular substitution, and his thumbs are at approximately T12 level and reach behind his back. This causes end range drawing throughout the anterior aspect of the proximal humeri. His pure glenohumeral movement is 60-70 degrees bilaterally. His active assistive range of motion the supine position: Flexion 120 degrees, abduction 90 degrees, external rotation 45 degrees, and internal rotation at 80 degrees. His elbow, forearm, and wrist movements are within functional limits. Palpation: He is nontender over the AC/SC joints, subacromially over the greater tuberosity. He has significant atrophic changes throughout the scapula bilaterally particularly the infra and supra spinatus fosses. Strength: When resisting his rotator cuff bilaterally his external rotation, or his infraspinatus, 0/5, scaption and pure abduction is 1/5, internal rotation is 4/5. His biceps mechanism for elbow flexion and forearm supination is -5/5. I do not detect any Chance deformities Sensation: Intact Bed Mobility/Transfers: Independent with assuming the supine to sitting to standing positions Gait: Ambulates with minimal contact guarding for 200 feet. I did not test stair climbing today Balance: [] Static Sitting: Good Dynamic Sitting: Good Static Standing: Good Dynamic Standing: Good Special Tests: Mobility Limitations Standardized Measure [facility] AM-PAC 6 clicks Basic Mobility Inpatient Short Form: Raw Score: 21 standardized Score: 50.25 CMS Score: Next field 28.97 [facility] Modifier: CJ Informed Consent/Education: Patient instructed in purpose of PT consult and plan of care. Assessment: Patient is a 77 year old male referred to physical therapy services with the diagnosis of pneumonia. Patient presents with clinical signs and symptoms consistent with this diagnosis, as well as chronic rotator cuff tendinopathy's with resultant mild adhesive capsules. I am as demonstrated by the following impairment level findings: Difficulty performing shoulder activities at or above shoulder level, along with generalized weakness from his recent pneumonia. Impairments are contributing to the following functional limitations: AMPAC score of 28.97% Patient is assessed as a Moderate 11068 complexity based on the following: History: See above Examination: See above Presentation: Evolving Decision Making: Moderate based on the impact score of 28.97% Goals: Goals X1 week Increase exercise tolerance to walking greater than 500 feet, along with stair climbing, etc. Plan of Care/Treatment Plan: 1-2x/day, 7 days/week x 1 week. Plan of care has been reviewed with the RFID STRATEGIST providing the service under Physical Therapy direction. Initiate Physical Therapy intervention for strengthening, bed mobility, transfers, gait, stairs, balance training, use of assistive device. DISCHARGE RECOMMENDATIONS: Home TREATMENT CODE/TIME: Moderate complexity, initial evaluation 61258, 45 minutes, 9:45 AM
--- NOTE | 2018-09-17 16:04 | IN_ITS ---
Date of service: 09/17/18 Time of Service: 15:47 PT Notes Inpatient Physical Therapy Evaluation Date: 09/17/2018 Referring Doctor: Blanche Jameson MD PT Orders: PT CONSULT: Evaluate and treat Precautions: Falls Patient Profile/Admitting Diagnosis: A 77-year-old male admitted recently with pneumonia. PMHX: Bilateral rotator cuff tendinopathy and adhesive capsules Social History/Home Situation: Lives at home with his , is retired from [employer] Current Functional Limitations: Has difficulty performing activities at or above shoulder level or behind his back. He has difficulty sleeping on his side for more than 15 or 20 minutes Equipment Owned/DME: Lives on the second floor, 7 steps to the upstairs bedroom. He has a shower/tub which she is capable of using, but generally takes sponge baths. Subjective: Pleasant, cooperative male with complaints of bilateral shoulder dysfunction, and general fatigue shortness of breath although he notes significant improvements compared to yesterday. Objective: [] General Observation: No abnormal pain behavior noted Mental Status: Alert and oriented x3 Pain: Complains of intermittent discomfort throughout the lateral aspect of his humeri when attempting active movements with his shoulders Vital Signs: His resting pulse is 88 bpm and O2 sat is 95%; following ambulation his pulse is 95 bpm and O2 sat is 91% ROM: Cervical spine motion is limited with an articular pattern with rotation approximately 15-20 degrees and side bending at 10 degrees but without pain on movement or reproduction of his symptoms. His active shoulder movements are limited to less than 45 degrees associated with excessive scapular substitution, and his thumbs are at approximately T12 level and reach behind his back. This causes end range drawing throughout the anterior aspect of the proximal humeri. His pure glenohumeral movement is 60-70 degrees bilaterally. His active assistive range of motion the supine position: Flexion 120 degrees, abduction 90 degrees, external rotation 45 degrees, and internal rotation at 80 degrees. His elbow, forearm, and wrist movements are within functional limits. Palpation: He is nontender over the AC/SC joints, subacromially over the greater tuberosity. He has significant atrophic changes throughout the scapula bilaterally particularly the infra and supra spinatus fosses. Strength: When resisting his rotator cuff bilaterally his external rotation, or his infraspinatus, 0/5, scaption and pure abduction is 1/5, internal rotation is 4/5. His biceps mechanism for elbow flexion and forearm supination is -5/5. I do not detect any Chance deformities Sensation: Intact Bed Mobility/Transfers: Independent with assuming the supine to sitting to standing positions Gait: Ambulates with minimal contact guarding for 200 feet. I did not test stair climbing today Balance: [] Static Sitting: Good Dynamic Sitting: Good Static Standing: Good Dynamic Standing: Good Special Tests: Mobility Limitations Standardized Measure [facility] AM-PAC 6 clicks Basic Mobility Inpatient Short Form: Raw Score: 21 standardized Score: 50.25 CMS Score: Next field 28.97 [facility] Modifier: CJ Informed Consent/Education: Patient instructed in purpose of PT consult and plan of care. Assessment: Patient is a 77 year old male referred to physical therapy services with the diagnosis of pneumonia. Patient presents with clinical signs and symptoms consistent with this diagnosis, as well as chronic rotator cuff tendinopathy's with resultant mild adhesive capsules. I am as demonstrated by the following impairment level findings: Difficulty performing shoulder activities at or above shoulder level, along with generalized weakness from his recent pneumonia. Impairments are contributing to the following functional limitations: AMPAC score of 28.97% Patient is assessed as a Moderate 15363 complexity based on the following: History: See above Examination: See above Presentation: Evolving Decision Making: Moderate based on the impact score of 28.97% Goals: Goals X1 week Increase exercise tolerance to walking greater than 500 feet, along with stair climbing, etc. Plan of Care/Treatment Plan: 1-2x/day, 7 days/week x 1 week. Plan of care has been reviewed with the [facility] providing the service under Physical Therapy direction. Initiate Physical Therapy intervention for strengthening, bed mobility, transfers, gait, stairs, balance training, use of assistive device. DISCHARGE RECOMMENDATIONS: Home TREATMENT CODE/TIME: Moderate complexity, initial evaluation 07735, 45 minutes, 9:45 AM
[2018-09-17] MEDS: Normal Saline Flush 10 ML SYR IVP (20:51)
[2018-09-18] VITALS (13 sets, daily range): BP systolic 136–152; BP diastolic 74–84; PULSE 59–84; RESP 1–20; TEMP 36.3–37.1; O2SAT 90–97
[2018-09-18] MEDS: DOXYCYCLINE 100 MG in Normal Saline 100 ML IVPB ×2 (01:20→13:28)
[2018-09-18] MEDS: Albuterol/Ipratropium 3 ML UPD VIAL UPD ×4 (01:30→18:17)
[2018-09-18] MEDS: methylPREDNISolone SUCC 125 MG VIAL 80 MG IVP ×2 (03:57→13:27)
[2018-09-18] MEDS: Normal Saline Flush 10 ML SYR IVP ×3 (03:57→20:40)
[2018-09-18 07:13] LABS: Abs Immature Grans 0.03 k/cumm (0.0-0.09); Absolute Eosinophil Count 0.02 k/cumm (0.0-0.7); Absolute Lymphocyte Count 0.57 k/cumm (1.2-3.4); Absolute Monocyte Count 0.33 k/cumm (0.11-0.7); Eosinophils % 0.2; HCT 39.7 % (40.0-50.0); HGB 13.1 g/dL (13.5-17.5); Immature Grans % 0.3; Lymphocytes % 4.8; Mean Corpuscular Volume 94.1 fL (80-95); Mean Platelet Volume 9.5 fL (8.0-11.0); Monocytes % 2.8; Neutrophils % 91.9; Platelet Count 281 x1000/uL (130-400); RBC 4.22 m/cumm (4.50-6.00); RBC Distribution Width 13.7 % (11.8-14.1); White Blood Cell Count 11.87 k/cumm (4.4-10.8)
[2018-09-18 07:14] LABS: Absolute Neutrophil Count 10.91 k/cumm (1.2-6.7)
[2018-09-18 07:24] LABS: Anion Gap 7.5 mmol/L (3-11); BUN 26 mg/dL (7-18); CO2 26.5 mmol/L (21.0-32.0); CREATININE 0.85 mg/dL (0.70-1.30); Calcium 8.4 mg/dL (8.5-10.1); Chloride 111 mmol/L (98-107); Glucose 127 mg/dL (70-100); Potassium 4.3 mmol/L (3.5-5.1); Sodium 145 mmol/L (136-145)
[2018-09-18] MEDS: guaiFENesin 600 MG TABCR PO ×2 (10:19→20:41)
[2018-09-18] MEDS: Tamsulosin 0.4 MG CAPCR PO (10:19)
[2018-09-18] MEDS: Pantoprazole 40 MG TABCR PO (10:19)
[2018-09-18] MEDS: Benzonatate 100 MG CAP PO ×3 (10:19→20:41)
[2018-09-18] MEDS: Oseltamivir 75 MG CAP PO ×2 (10:20→20:41)
[2018-09-18] MEDS: Budesonide/Formoterol 160/4.5 6 GM 60 PUFF INH IH ×2 (10:28→20:43)
[2018-09-18 10:59] LABS: Influenza A RNA Result Negative (Negative); Influenza B RNA Result Negative (Negative); RSV RNA Result Negative (Negative)
--- NOTE | 2018-09-18 12:26 | PT.INTREAT ---
Date of service: 09/18/18 Time of Service: 12:26 PT Notes Inpatient Physical Therapy Treatment Note [facility] Date: 09/18/18 SUBJECTIVE: Radha states that he is somewhat confused, although, functionally, feels he is doing fine. He reports that he does not have any issues with balance at home, and maintains a pretty active lifestyle. OBJECTIVE: PAIN: No c/o pain BED MOBILITY/TRANSFERS Sit-stand: I Stand-sit: I GAIT Assistive Device: No AD Weight bearing: Full Assist: I Distance: 100' Deviation: 2L O2 via NC THEREX: Patient completed a LE strengthening program in a standing position, as per flow sheet. Patient did not require UE support, however, did require significant rest periods due to SOB. ASSESSMENT: Patient tolerated session well with c/o SOB with activity. Patient was able to demonstrate independence with transfers and gait, although requires cueing for energy conservation. He would benefit from continued gait training and general conditioning for improved cardiorespiratory function and endurance. PLAN: Continue with PT's POC TREATMENT CODE/TIME: 20 minutes; 63433
[2018-09-18] MEDS: Gadoterate meglumine 20 ML VIAL 12 ML IVP (12:52)
--- NOTE | 2018-09-18 13:03 | DI.MRI_ITS ---
SYMPTOMS/DIAGNOSIS: RIGHT UPPER LOBE MASS, ? METASTATIC LESION OF THE BRAIN ON CT MRI OF THE BRAIN: T2 sagittal, T1, T2, FLAIR, diffusion and gradient echo axial and post gadolinium T1 axial and coronal sequences were performed. Comparison is made with head CT dated September,. There is a wedge-shaped area of low signal in T1 weighted images and high signal on T2 and FLAIR weighted images in the right frontal lobe. There is no evidence of enhancement post contrast or restricted diffusion. No additional abnormalities are identified. The ventricles are normal in size. The vascular flow voids appear intact. The orbits, sinuses and mastoid air cells appear clear. IMPRESSION: Area of high signal in the right frontal lobe shows no enhancement or restricted diffusion. The findings could represent an old infarct.
--- NOTE | 2018-09-18 13:07 | OTIE_ITS ---
Occupational Therapy Notes Inpatient Occupational Therapy Evaluation Date: 09/18/18 Referring Doctor:Blanche Jameson MD OT Orders: Eval and Treat Precautions: Contact/Droplet precautions PATIENT PROFILE/ADMITTING DIAGNOSIS: Pt is a 77 year old male who was admitted through the ER on 09/16 for carcinoma of lungs, CAP, URI, episode of falling, tachycardic, tachypneic, and mild hypoxia. Past Medical History: Bilateral rotator cuff tendinopathy and adhesive capsules, hypoxia Current Functional Limitations: Decreased functional activity tolerance, decreased (B) UE ROM, decreased (B) UE strength, decreased SaO2 levels during functional ambulation, Unable to perform ADLs and PLOF. Social History/Home Situation: Pt reports that he lives with his in a private home with 4 stairs to enter and 7 stairs to the second floor of his home. Pt reports that he has a tub/shower combination and this is difficult for him to perform bathing routine in so her performs his bathing routine standing at the sink. He reports that his baseline level of function is (I) with toileting, dressing, bathing at sink, driving and cooking. Equipment owned/DME: None mentioned per Pt. SUBJECTIVE: Pt was sitting in chair when OT arrived. He was agreeable to OT evaluation. OBJECTIVE: General Observation: Pleasant and answered questions appropriately. Nasal canal O2, no assistive device for ambulation. Mental Status: A&Ox3 Pain: no c/o pain, however pt complains of discomfort in (B) shoulders and UEs. Vital Signs: SaO2 when standing at sink for ADLs 91% ROM: RUE [] L UE [] STRENGTH: RUE [] LUE [] FUNCTIONAL MOBILITY/ADLS: Transfers Sit-Stand S Stand-sit S Sink-Chair S Chair-Sink S BATHING Bathing UE Standing at sink with min vc for body mechanics and need for breaks pt was able to (I) wash face, neck and (B) UE, required max (A) for back and on pts sides. Bathing LE Sitting in chair (I) in pelvic area, (I) Upper thighs and mod (A) for (B) feet. Pt was visibly demonstrating decreased functional activity tolerance during bathing routine at sink. DRESSING Dressing UE Sitting in chair mod (A) due to limited (B) UE ROM for donning and doffing hospital gown. Dressing LE Mod (A) for donning under garments, Max (A) donning and doffing (B) socks. GROOMING Standing at the sink with min vc for rest breaks pt was able to perform teeth brushing, however was visibly out of breath post routine. TOILETING NT- pt does report that he used the urinal at night because he had to go and doesn't feel that he could make it in time. EATING NT BALANCE: Static sitting Normal Dynamic Sitting Normal Static Standing Good Dynamic Standing Good SPECIAL TESTS: Daily Activity Limitations Standardized Measure [facility] AM -PAC ?6 clicks? Daily Activity Inpatient Short Form: Raw score: 16 Standardized score: 35.96 CMS score: 53.32% INFORMED CONSENT/EDUCATION: Pt instructed in purpose of OT Consult and plan of care. 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 Patient presents with clinical signs and symptoms consistent with dx, as demonstrated by the following impairment level findings: Decreased functional activity tolerance, decreased (B) UE ROM, decreased (B) UE strength, decreased SaO2 levels during functional ambulation, Unable to perform ADLs and PLOF. Impairments are contributing to the following functional limitations: Decreased functional activity tolerance for ADLs in standing position, unable to perform LE dressing and bathing (I), requires multiple rest breaks during standing ADLs, decreased (I) in dressing and bathing in sitting position with decreased SaO2. Pt would benefit from skilled OT services for progression of ADLs in standing position, increased functional activity tolerance, education and training for adaptive equipment and energy conservation techniques. OT recommends that pt return home when medically cleared per MD with DME recommendations below. AMPAC score 16, CMS score 53.32% Patient is assessed as a Moderate 71942 complexity based on the following: History: See Above Examination: See Above Presentation: Evolving Decision Making: AMPAC score 16, CMS score 53.32% GOALS Goals x1 week in hospital setting 1. Transfers (I) 2. Dressing Standing position (I) with LE dressing and min (A) for UE dressing with training in adaptive equipment. 3. Bathing Standing at sink (I) for UE/LE 4. Toileting On toilet (I) 5. Eating (I) food to mouth and opening and closing packages in sitting position 6. Grooming- standing at sink (I) with teeth hygiene PLAN OF CARE/TREATMENT PLAN: 1x/day, 5 days/ week x 1week Initiate Occupational Therapy Services for bathing, dressing, grooming, toileting, eating, transfer training. DISCHARGE RECOMMENDATIONS Home with home OT when medically cleared per MD OT recommends shower bench, grab bars and removeable shower head to increase pts (I) and safety in bathing routine. TREATMENT TIME/MINUTES/CODES 72426, 03074, 37 minutes (09:15) Mary Grace Mayo OTR/L [facility]
--- NOTE | 2018-09-18 14:38 | PDOC.CMPRO ---
- If Service Date Differs Date of service: 09/18/18 Time of Service: 14:38 Care Management Progress Note S/O: Radha is sitting up in his chair when this scientific technical writer visits this morning, he has his granddaughter in the room with him visiting. CM also checked in with Radha's Rolando this morning, whom states that she feels as though he is sounding worse to her. Radha worked with physical therapy today whom states that functionally he is doing well, though is short of breath during physical therapy. A: 77 y/o male admitted 09/16/18 for malignancy, cap P: Radha will return home with no anticipated services once medically cleared. He will F/U with PCP and plan of care as prescribed. Rolando to transport when ready.
--- NOTE | 2018-09-18 14:46 | CMPROGNOTE_ITS ---
- If Service Date Differs Date of service: 09/18/18 Time of Service: 14:38 Care Management Progress Note S/O: Radha is sitting up in his chair when this check writer visits this morning, he has his granddaughter in the room with him visiting. CM also checked in with Radha's Rolando this morning, whom states that she feels as though he is sounding worse to her. Radha worked with physical therapy today whom states that functionally he is doing well, though is short of breath during physical t herapy. A: 77 y/o male admitted 09/16/18 for malignancy, cap P: Radha will return home with no anticipated services once medically cleared. He will F/U with PCP and plan of care as prescribed. Rolando to transport when ready.
--- NOTE | 2018-09-18 15:07 | CHAPLAIN ---
Radha was sitting up in his chair when I stopped in. His Rolando (an [employer] employee) and his daughter were visiting with him. Radha was quiet but pleasant in responding to questions. He said he was waiting to speak with the hospitalist. He seems to be comfortable here.
--- NOTE | 2018-09-18 16:33 | PHARADMIT ---
Admission Pharmacy Clinical Review malignancy, CAP, acute exacerbation of COPD w/hypoxia Code Status DNR/DNI Current Weight 63.8 kg Renally Cleared and Narrow Therapeutic Index Meds Crcl ~67.00 mL/min current meds okay QTc Value / Action Taken QTc 411 BP Control, Fever BP 136/75 afebrile Electrolytes reviewed Cl 111 DVT Prophylaxis none Opiate Usage / Scheduled Bowel Regimen Ordered no/prn Plt/SCr for Heparin / Enoxaparin plt 281 SCr 0.85 INR for Warfarin n/a H/H stable, WBC/Bands h/h 13.1/39.7 WBC 11.87 Antibiotic appropriateness ceftriaxone and doxycycline Cultures and Sensitivities blood cultures- no growth @ 48 hours urine culture- no growth @ 48 hours rapid flu-negative Surgical ABX d/c within 24 hr n/a DM control / Insulin Dosing BG 127 none Heart Failure (Check EF%) (HEATHER's, B-Block, Diuretics) none IV to PO Switch n/a Home Meds Reviewed yes Home Meds Not Ordered azithromycin (has other abx ordered), flovent, multivitamin, omega-3, prednisone(has other steroids ordered), salmeterol (has sybicort ordered) Comments waiting for flu PCR results
[2018-09-18] MEDS: Lidocaine 5% Patch 2 PATCH TP (17:33)
--- NOTE | 2018-09-18 18:13 | W.PM.PROGNOT ---
Date of Service Date of service: 09/18/18 Time of Service: 15:20 Assessment and Plan (1) CVA (cerebral vascular accident): Current visit: Yes Status: Chronic not new. Will check lipids and start baby asa. Will need carotid US and echo - obtain tomorrow. On discharge, will need a zio patch (2) CAP (community acquired pneumonia): Current visit: Yes Status: Acute Continue ceftriaxone and doxycycline (3) COPD exacerbation: Current visit: Yes Status: Acute Improving. Start to taper steroids. Continue abx as above. (4) Lung mass: Current visit: Yes Status: Acute Will need outpatient follow up for diagnostic workup (5) Edema of left lower extremity: Current visit: Yes Status: Acute Obtain venous doppler of BLE's (6) DVT prophylaxis: Current visit: Yes Status: Acute ruling out active DVT (7) Discharge planning issues: Current visit: Yes Status: Acute DNR/DNI Anticipate discharge in 48 hours Subjective Interval history since last seen: Denies dizziness, chest pain, nausea, vomiting. Shortness of breath and cough are better. Exam Narrative Exam Narrative: General: A&Ox3, NAD HEENT; EOMI, MMM Heart: RRR, no m/r/g Lungs: quiet rales and rhonchi B, minimal Abdomen: soft, nontender, nondistended Extremities: LLE with +1 edema, RLE without edema, no clubbing or cyanosis. Objective Objective Clinical Data: Abnormal lab results 09/18/18 09/18/18 Range/Units 06:35 06:35 WBC 11.87 H D (4.4-10.8) k/cumm RBC 4.22 L (4.50-6.00) m/cumm Hgb 13.1 L (13.5-17.5) g/dL Hct 39.7 L (40.0-50.0) % Absolute Neutrophils 10.91 H (1.2-6.7) k/cumm Absolute Lymphocytes 0.57 L (1.2-3.4) k/cumm Chloride 111 H (98-107) mmol/L BUN 26 H (7-18) mg/dL Glucose 127 H (70-100) mg/dL Calcium 8.4 L (8.5-10.1) mg/dL Vital Signs Temperature 36.5 C 09/18/18 16:09 Temperature Source Tympanic 09/18/18 16:09 Pulse 59 L 09/18/18 16:09 Pulse Rhythm Regular 09/18/18 15:35 Pulse 84 09/16/18 13:40 Respiratory Rate 19 09/18/18 16:09 Respiratory Effort 09/18/18 15:35 Respiratory Depth Shallow 09/18/18 15:35 Respiratory Pattern Normal 09/18/18 15:35 Blood Pressure 136/75 09/18/18 16:09 Blood Pressure Mean 72 09/16/18 11:45 Pulse Oximetry 94 L 09/18/18 16:09 Oxygen Delivery Method Room Air 09/18/18 16:09 Oxygen Flow Rate 0 09/18/18 16:09 Pain Level 0 09/18/18 01:42 Comment 09/18/18 07:25 Intake & Output 09/17/18 09/18/18 09/18/18 23:59 11:59 23:59 Intake Total 1216.667 / 2463.334 440 / 590 150 / 590 Output Total 750 / 1800 575 / 925 350 / 925 Balance 466.667 / 663.334 -135 / -335 -200 / -335 Weight 63.8 kg Intake: IV 376.667 / 1623.334 100 / 250 150 / 250 Oral 840 / 840 340 / 340 Output: Urine 750 / 1800 575 / 925 350 / 925 Other: Urine Color Yellow Yellow Pale Yellow Urine Appearance Clear Clear Clear Urine Odor None Normal Voiding Methods Urinal Urinal Toilet Laboratory Results WBC 11.87 k/cumm (4.4-10.8) H D 09/18/18 06:35 RBC 4.22 m/cumm (4.50-6.00) L 09/18/18 06:35 Hgb 13.1 g/dL (13.5-17.5) L 09/18/18 06:35 Hct 39.7 % (40.0-50.0) L 09/18/18 06:35 MCV 94.1 fL (80-95) 09/18/18 06:35 MCH 31.0 pg (27.0-33.0) 09/18/18 06:35 MCHC 33.0 g/dL (32.0-36.0) 09/18/18 06:35 RDW 13.7 % (11.8-14.1) 09/18/18 06:35 Plt Count 281 x1000/uL (130-400) 09/18/18 06:35 MPV 9.5 fL (8.0-11.0) 09/18/18 06:35 Immature Gran % 0.3 09/18/18 06:35 Neutrophils % 91.9 09/18/18 06:35 Lymphocytes % 4.8 09/18/18 06:35 Monocytes % 2.8 09/18/18 06:35 Eosinophils % 0.2 09/18/18 06:35 Basophils % 0.0 09/18/18 06:35 Absolute Neutrophils 10.91 k/cumm (1.2-6.7) H 09/18/18 06:35 Absolute Lymphocytes 0.57 k/cumm (1.2-3.4) L 09/18/18 06:35 Absolute Monocytes 0.33 k/cumm (0.11-0.7) 09/18/18 06:35 Absolute Eosinophils 0.02 k/cumm (0.0-0.7) 09/18/18 06:35 Absolute Basophils 0.00 k/cumm (0.0-0.2) 09/18/18 06:35 VBG pH 7.44 (7.32-7.43) H 09/16/18 11:00 VBG pCO2 43 mm/Hg (34-47) 09/16/18 11:00 VBG pO2 40 mm/Hg (28-44) 09/16/18 11:00 VBG HCO3 29 mmol/L (22-28) H 09/16/18 11:00 VBG Total CO2 26 mmol/L (22-29) 09/16/18 11:00 VBG O2 Saturation 77 % (70-80) 09/16/18 11:00 VBG Base Excess 5.0 mmol/L (-3-3) H 09/16/18 11:00 Sodium 145 mmol/L (136-145) 09/18/18 06:35 Potassium 4.3 mmol/L (3.5-5.1) 09/18/18 06:35 Chloride 111 mmol/L (98-107) H 09/18/18 06:35 Carbon Dioxide 26.5 mmol/L (21.0-32.0) 09/18/18 06:35 Anion Gap 7.5 mmol/L (3-11) 09/18/18 06:35 BUN 26 mg/dL (7-18) H 09/18/18 06:35 Creatinine 0.85 mg/dL (0.70-1.30) 09/18/18 06:35 Estimated GFR/1.73 m2 >= 60.00 (mL/min/1.73m2) 09/18/18 06:35 Glucose 127 mg/dL (70-100) H 09/18/18 06:35 Lactate 1.0 mmol/l (0.6-1.4) 09/16/18 11:00 Calcium 8.4 mg/dL (8.5-10.1) L 09/18/18 06:35 Magnesium 2.0 mg/dL (1.8-2.4) 09/18/18 06:35 Total Bilirubin 0.4 mg/dL (0.2-1.0) 09/16/18 11:00 AST 34 U/L (15-37) 09/16/18 11:00 ALT 31 U/L (12-78) 09/16/18 11:00 Alkaline Phosphatase 127 U/L (46-116) H 09/16/18 11:00 Troponin I 0.03 ng/mL (0.00-0.06) 09/17/18 07:00 Total Protein 6.6 g/dL (6.4-8.2) 09/16/18 11:00 Albumin 3.2 g/dL (3.4-5.0) L 09/16/18 11:00 Urine Color Yellow (Yellow) 09/16/18 11:30 Urine Clarity Clear 09/16/18 11:30 Urine pH 5.5 (5-8) 09/16/18 11:30 Ur Specific [place] 1.025 (1.005-1.025) 09/16/18 11:30 Urine Protein Negative mg/dL (Negative) 09/16/18 11:30 Urine Ketones 15 mg/dL (Negative) H 09/16/18 11:30 Urine Blood Negative (Negative) 09/16/18 11:30 Urine Nitrite Negative (Negative) 09/16/18 11:30 Urine Bilirubin Negative (Negative) 09/16/18 11:30 Urine Urobilinogen 0.2 EU/dL (Up TO 0.2) 09/16/18 11:30 Ur Leukocyte Esterase Negative (Negative) 09/16/18 11:30 Urine Glucose Negative mg/dL (Negative) 09/16/18 11:30 Specimen Type nasal 09/16/18 14:10 Influenza Type A RNA Negative (Negative) 09/16/18 14:10 Influenza Type B RNA Negative (Negative) 09/16/18 14:10 RSV RNA Qual (PCR) Negative (Negative) 09/16/18 14:10 MRI: Area of high signal in the right frontal lobe shows no enhancement or restricted diffusion. The findings could represent an old infarct.
[2018-09-18] MEDS: methylPREDNISolone SUCC 125 MG VIAL 60 MG IVP (20:40)
[2018-09-19] VITALS (9 sets, daily range): BP systolic 122–153; BP diastolic 69–78; PULSE 74–105; RESP 18–20; TEMP 35.6–37.2; O2SAT 93–98
[2018-09-19] MEDS: Albuterol/Ipratropium 3 ML UPD VIAL UPD ×4 (00:14→17:45)
[2018-09-19] MEDS: DOXYCYCLINE 100 MG in Normal Saline 100 ML IVPB ×2 (00:14→11:50)
[2018-09-19] MEDS: Normal Saline Flush 10 ML SYR IVP ×3 (03:47→19:48)
[2018-09-19] MEDS: methylPREDNISolone SUCC 125 MG VIAL 60 MG IVP ×2 (03:47→11:50)
[2018-09-19] MEDS: LIDOCAINE Patch Removal 1 EACH TP (06:04)
[2018-09-19 07:26] LABS: Abs Immature Grans 0.02 k/cumm (0.0-0.09); Absolute Lymphocyte Count 0.44 k/cumm (1.2-3.4); Absolute Monocyte Count 0.26 k/cumm (0.11-0.7); Absolute Neutrophil Count 8.85 k/cumm (1.2-6.7); HCT 41.8 % (40.0-50.0); Immature Grans % 0.2; Lymphocytes % 4.6; Mean Corp. HGB Concentration 33.5 g/dL (32.0-36.0); Mean Corpuscular Hemoglobin 31.3 pg (27.0-33.0); Mean Corpuscular Volume 93.5 fL (80-95); Monocytes % 2.7; Neutrophils % 92.5; Platelet Count 329 x1000/uL (130-400); RBC 4.47 m/cumm (4.50-6.00); RBC Distribution Width 13.9 % (11.8-14.1); White Blood Cell Count 9.57 k/cumm (4.4-10.8)
[2018-09-19] MEDS: Budesonide/Formoterol 160/4.5 6 GM 60 PUFF INH IH ×2 (07:29→19:48)
[2018-09-19 07:41] LABS: Anion Gap 9.9 mmol/L (3-11); BUN 33 mg/dL (7-18); CO2 26.1 mmol/L (21.0-32.0); CREATININE 0.92 mg/dL (0.70-1.30); Calcium 8.8 mg/dL (8.5-10.1); Chloride 108 mmol/L (98-107); Cholesterol 167 mg/dL (50-200); Glucose 126 mg/dL (70-100); HDL Cholesterol 55 mg/dL (40-60); LDL CHOLESTEROL 99 mg/dL (<100); Magnesium 1.9 mg/dL (1.8-2.4); Potassium 4.3 mmol/L (3.5-5.1); Sodium 144 mmol/L (136-145); Triglyceride 55 mg/dL (30-150)
[2018-09-19] MEDS: Aspirin 81 MG CHEW PO (08:17)
[2018-09-19] MEDS: Tamsulosin 0.4 MG CAPCR PO (08:17)
[2018-09-19] MEDS: guaiFENesin 600 MG TABCR PO ×2 (08:17→19:48)
[2018-09-19] MEDS: Benzonatate 100 MG CAP PO ×3 (08:17→19:48)
[2018-09-19] MEDS: Pantoprazole 40 MG TABCR PO (08:17)
--- NOTE | 2018-09-19 09:32 | PDOC.CMPRO ---
Care Management Progress Note S/O: Radha was sitting on the side of his bed, visiting with family when CM met with him. Radha will have a Carotid doppler ultrasound and ECHO today. He continues to work with PT, his steroids are being tapered and he remains on antibiotics at this time. CM will continue to follow. A: 77 y/o male admitted 09/16/18 for malignancy, cap P: Radha will return home with no anticipated services once medically cleared. He will have a Ziopatch placed, follow up with his PCP as well as his plan of care as prescribed. He will transport via private vehicle with his Rolando when ready.
--- NOTE | 2018-09-19 10:16 | OT.INTREAT ---
Date of service: 09/19/18 Time of Service: 08:20 Occupational Therapy Notes Occupational Therapy Inpatient Treatment Note Date: 09/19/18 PRECAUTIONS: Standard SUBJECTIVE: Pt was sitting in chair when OT arrived. He reports that he had performed most of his ADLs prior to OT arrival with nursing. OBJECTIVE: PAIN:no c/o pain. FUNCTIONAL MOBILITY Sit-stand: S Stand-sit: S Toilet-Chair: S Chair-Toilet: S BATHING: Performed prior to OT session with nursing. DRESSING: Sitting in chair Upper Extremity: NT Lower Extremity: Pt was educated and trained with min vc on donning and doffing (B) socks with use of dressing hook and sock aid. Pt was able to demonstrate this with good technique with min vc required for body mechanics. TOILETING: Device: Toilet Assist: Standing, S Education: Pt was educated on energy conservation techniques in his home for self care tasks and functional activities. Pt was receptive to education provided and discussed with OT home set up and techniques he can utilize. Pt was provided written and illustrated handouts verbalizing understanding to this. ASSESSMENT: Pt was receptive to education provided to him. He is demonstrating increased (I) in ADL routines with limited UE ROM. He functionally was able to perform toileting routine on toilet in standing position (I) with supervision for gait. Pt was pleasant and answered questions appropriately. Pt would benefit from continued skilled OT intervention for progression of ADLs with increased functional activity tolerance. PLAN: Assess pts (I) in adaptive equipment, progression of (I) in LE dressing routine and functional activity tolerance. TREATMENT CODES/TIME: [id number], 28 minutes (08:20) DEANDRE Wills/[facility]
--- NOTE | 2018-09-19 12:38 | PT.INTREAT ---
Date of service: 09/19/18 Time of Service: 12:38 PT Notes Inpatient Physical Therapy Treatment Note [facility] Date: 09/19/18 SUBJECTIVE: Radha reports that he has been walking and transferring independently within his room, and he feels safe doing so. OBJECTIVE: PAIN: No complaints of pain BED MOBILITY/TRANSFERS Sit-stand: I Stand-sit: I GAIT Assistive Device: No AD Weight bearing: Full Assist: I Distance: >500' Deviation: Seated rest x1 VITALS: SaO2: 90-98% on RA with gait training STAIRS: Up/down 9x4 and 6x6 using one rail and a step over pattern with supervision ASSESSMENT: Patient tolerated session with some SOB with gait training, requiring seated rest x1 for recovery. PLAN: Continue with PTs POC TREATMENT CODE/TIME: Session 1: 30 minutes; 52125 x2
--- NOTE | 2018-09-19 13:42 | DI.US_ITS ---
SYMPTOMS/DIAGNOSIS: ASYMMETRIC BILATERAL LOWER EXTREMITIES, ? DVT BILATERAL LOWER EXTREMITY ULTRASOUND: The femoral and popliteal veins and visualized calf veins are freely compressible. No thrombus is visible. The Doppler venous waveform augments normally. No Camp's cyst is seen. IMPRESSION: Negative bilateral lower extremity ultrasound. No evidence of DVT.
--- NOTE | 2018-09-19 14:04 | DI.US_ITS ---
SYMPTOMS/DIAGNOSIS: OLD CVA ON MRI CAROTID ULTRASOUND: The common carotid arteries show mild intimal thickening. There is calcific plaque seen in both common carotid bulbs and extending into the internal carotid arteries bilaterally. The velocity measurements are within the normal range, consistent with a less than 50% stenosis. The vertebral arteries show antegrade flow. IMPRESSION: Heavy calcified plaque greatest in the right common carotid bulb. No significant internal carotid artery stenosis.
--- NOTE | 2018-09-19 17:10 | W.PM.PROGNOT ---
Date of Service Date of service: 09/19/18 Time of Service: 17:10 Assessment and Plan (1) CAP (community acquired pneumonia): Current visit: Yes Status: Acute His respiratory status is improving. Continue ceftriaxone and doxycycline, currently on day #4. (2) CVA (cerebral vascular accident): Current visit: Yes Status: Chronic Not new. Noted on CT and MRI brain. Carotid ultrasound shows heavy calcified plaque greatest in the right common carotid bulb. No significant internal carotid artery stenosis. Echo pending for tomorrow. Plan for ZioPatch on discharge. (3) COPD exacerbation: Current visit: Yes Status: Acute Improving. Continue to taper steroids, continue antibiotics. (4) Lung mass: Current visit: Yes Status: Acute Will need outpatient followup with pulmonology for diagnostic workup. (5) Edema of left lower extremity: Current visit: Yes Status: Acute Lower extremity ultrasound negative for DVT. Echo pending for tomorrow. (6) DVT prophylaxis: Current visit: Yes Status: Acute Subcutaneous Lovenox. (7) Discharge planning issues: Current visit: Yes Status: Acute He is a DNR/DNI. This case was discussed with Dr. Jameson who is in agreement. Subjective Interval history since last seen: Mr. Cabello continues to have some shortness of breath with activity, he feels wheezy, his cough is rare and nonproductive. He does not feel that his breathing is back to his baseline. He admits that he was quite ill before he presented to the hospital. He denies dizziness, chest pain/pressure, palpitations. He is eating and drinking and tolerating his diet, no nausea, vomiting, diarrhea. He denies any pain. He has concerns that he will be dependent on people, he has always been very independent. He became tearful talking about this. Exam Narrative Exam Narrative: General: Thin, chronically ill-appearing man, sitting up in the chair, tearful at times, he is A&Ox3, in NAD. HEENT; face appears red, pupils equal and round, extraocular movements intact, mucous membranes moist. Neck: Supple, no JVD. Heart: Heart has regular rate and rhythm, no murmur appreciated. Lungs: Scattered expiratory wheezes throughout. Abdomen: Normoactive bowel sounds throughout, soft, nontender on palpation, nondistended Extremities: LLE with +1 edema, RLE without edema, no clubbing or cyanosis. Objective Objective Clinical Data: Abnormal lab results 09/19/18 09/19/18 Range/Units 07:06 07:06 RBC 4.47 L (4.50-6.00) m/cumm Absolute Neutrophils 8.85 H (1.2-6.7) k/cumm Absolute Lymphocytes 0.44 L (1.2-3.4) k/cumm Chloride 108 H (98-107) mmol/L BUN 33 H (7-18) mg/dL Glucose 126 H (70-100) mg/dL Vital Signs Temperature 36.4 C L 09/19/18 10:52 Temperature Source Tympanic 09/19/18 10:52 Pulse 75 09/19/18 10:52 Pulse Rhythm Regular 09/19/18 09:06 Pulse 84 09/16/18 13:40 Respiratory Rate 18 09/19/18 10:52 Respiratory Effort 09/19/18 09:06 Respiratory Depth Normal 09/19/18 09:06 Respiratory Pattern Normal 09/19/18 09:06 Blood Pressure 131/74 09/19/18 10:52 Blood Pressure Mean 72 09/16/18 11:45 Pulse Oximetry 93 L 09/19/18 10:52 Oxygen Delivery Method Room Air 09/19/18 10:52 Oxygen Flow Rate 0 09/19/18 10:52 Pain Level 2 09/19/18 08:38 Comment 09/18/18 07:25 Intake & Output 09/18/18 09/19/18 09/19/18 23:59 11:59 23:59 Intake Total 990 / 1430 310 / 650 340 / 650 Output Total 750 / 1325 200 / 750 550 / 750 Balance 240 / 105 110 / -100 -210 / -100 Weight 64.3 kg Intake: IV 150 / 250 190 / 290 100 / 290 Oral 840 / 1180 120 / 360 240 / 360 Output: Urine 750 / 1325 200 / 750 550 / 750 Other: Urine Color Yellow Straw Yellow Urine Appearance Clear Clear Clear Urine Odor Normal Normal Comment VOID 45 MIN AGO PER PT Stool Size Large Stool Characteristics Soft Formed Voiding Methods Toilet Urinal Toilet Laboratory Results WBC 9.57 k/cumm (4.4-10.8) 09/19/18 07:06 RBC 4.47 m/cumm (4.50-6.00) L 09/19/18 07:06 Hgb 14.0 g/dL (13.5-17.5) 09/19/18 07:06 Hct 41.8 % (40.0-50.0) 09/19/18 07:06 MCV 93.5 fL (80-95) 09/19/18 07:06 MCH 31.3 pg (27.0-33.0) 09/19/18 07:06 MCHC 33.5 g/dL (32.0-36.0) 09/19/18 07:06 RDW 13.9 % (11.8-14.1) 09/19/18 07:06 Plt Count 329 x1000/uL (130-400) 09/19/18 07:06 MPV 9.0 fL (8.0-11.0) 09/19/18 07:06 Immature Gran % 0.2 09/19/18 07:06 Neutrophils % 92.5 09/19/18 07:06 Lymphocytes % 4.6 09/19/18 07:06 Monocytes % 2.7 09/19/18 07:06 Eosinophils % 0.0 09/19/18 07:06 Basophils % 0.0 09/19/18 07:06 Absolute Neutrophils 8.85 k/cumm (1.2-6.7) H 09/19/18 07:06 Absolute Lymphocytes 0.44 k/cumm (1.2-3.4) L 09/19/18 07:06 Absolute Monocytes 0.26 k/cumm (0.11-0.7) 09/19/18 07:06 Absolute Eosinophils 0.00 k/cumm (0.0-0.7) 09/19/18 07:06 Absolute Basophils 0.00 k/cumm (0.0-0.2) 09/19/18 07:06 VBG pH 7.44 (7.32-7.43) H 09/16/18 11:00 VBG pCO2 43 mm/Hg (34-47) 09/16/18 11:00 VBG pO2 40 mm/Hg (28-44) 09/16/18 11:00 VBG HCO3 29 mmol/L (22-28) H 09/16/18 11:00 VBG Total CO2 26 mmol/L (22-29) 09/16/18 11:00 VBG O2 Saturation 77 % (70-80) 09/16/18 11:00 VBG Base Excess 5.0 mmol/L (-3-3) H 09/16/18 11:00 Sodium 144 mmol/L (136-145) 09/19/18 07:06 Potassium 4.3 mmol/L (3.5-5.1) 09/19/18 07:06 Chloride 108 mmol/L (98-107) H 09/19/18 07:06 Carbon Dioxide 26.1 mmol/L (21.0-32.0) 09/19/18 07:06 Anion Gap 9.9 mmol/L (3-11) 09/19/18 07:06 BUN 33 mg/dL (7-18) H 09/19/18 07:06 Creatinine 0.92 mg/dL (0.70-1.30) 09/19/18 07:06 Estimated GFR/1.73 m2 >= 60.00 (mL/min/1.73m2) 09/19/18 07:06 Glucose 126 mg/dL (70-100) H 09/19/18 07:06 Lactate 1.0 mmol/l (0.6-1.4) 09/16/18 11:00 Calcium 8.8 mg/dL (8.5-10.1) 09/19/18 07:06 Magnesium 1.9 mg/dL (1.8-2.4) 09/19/18 07:06 Total Bilirubin 0.4 mg/dL (0.2-1.0) 09/16/18 11:00 AST 34 U/L (15-37) 09/16/18 11:00 ALT 31 U/L (12-78) 09/16/18 11:00 Alkaline Phosphatase 127 U/L (46-116) H 09/16/18 11:00 Troponin I 0.03 ng/mL (0.00-0.06) 09/17/18 07:00 Total Protein 6.6 g/dL (6.4-8.2) 09/16/18 11:00 Albumin 3.2 g/dL (3.4-5.0) L 09/16/18 11:00 Triglycerides 55 mg/dL (30-150) 09/19/18 07:06 Total Cholesterol 167 mg/dL (50-200) 09/19/18 07:06 LDL Cholesterol Direct 99 mg/dL (<100) 09/19/18 07:06 HDL Cholesterol 55 mg/dL (40-60) 09/19/18 07:06 Urine Color Yellow (Yellow) 09/16/18 11:30 Urine Clarity Clear 09/16/18 11:30 Urine pH 5.5 (5-8) 09/16/18 11:30 Ur Specific [place] 1.025 (1.005-1.025) 09/16/18 11:30 Urine Protein Negative mg/dL (Negative) 09/16/18 11:30 Urine Ketones 15 mg/dL (Negative) H 09/16/18 11:30 Urine Blood Negative (Negative) 09/16/18 11:30 Urine Nitrite Negative (Negative) 09/16/18 11:30 Urine Bilirubin Negative (Negative) 09/16/18 11:30 Urine Urobilinogen 0.2 EU/dL (Up TO 0.2) 09/16/18 11:30 Ur Leukocyte Esterase Negative (Negative) 09/16/18 11:30 Urine Glucose Negative mg/dL (Negative) 09/16/18 11:30 Specimen Type nasal 09/16/18 14:10 Influenza Type A RNA Negative (Negative) 09/16/18 14:10 Influenza Type B RNA Negative (Negative) 09/16/18 14:10 RSV RNA Qual (PCR) Negative (Negative) 09/16/18 14:10
[2018-09-19] MEDS: Lidocaine 5% Patch 2 PATCH TP (17:42)
[2018-09-19] MEDS: Enoxaparin 40 MG/0.4 ML SYR SC (18:39)
[2018-09-19] MEDS: methylPREDNISolone SUCC 40 MG VIAL IVP (19:48)
[2018-09-20] VITALS (10 sets, daily range): BP systolic 132–144; BP diastolic 73–77; PULSE 68–84; RESP 8–20; TEMP 36.4–37.1; O2SAT 93–96
[2018-09-20] MEDS: Albuterol/Ipratropium 3 ML UPD VIAL UPD ×3 (00:21→12:49)
[2018-09-20] MEDS: Normal Saline Flush 10 ML SYR IVP ×2 (00:25→08:34)
[2018-09-20] MEDS: Normal Saline 500 ML 100 ML IV (00:25)
[2018-09-20] MEDS: DOXYCYCLINE 100 MG in Normal Saline 100 ML IVPB ×2 (00:26→12:34)
[2018-09-20] MEDS: LIDOCAINE Patch Removal 1 EACH TP (06:23)
[2018-09-20] MEDS: Pantoprazole 40 MG TABCR PO (07:18)
[2018-09-20] MEDS: Budesonide/Formoterol 160/4.5 6 GM 60 PUFF INH IH (07:20)
[2018-09-20] MEDS: Tamsulosin 0.4 MG CAPCR PO (08:08)
[2018-09-20] MEDS: guaiFENesin 600 MG TABCR PO (08:08)
[2018-09-20] MEDS: Aspirin 81 MG CHEW PO (08:08)
[2018-09-20] MEDS: Benzonatate 100 MG CAP PO ×2 (08:08→13:07)
[2018-09-20] MEDS: methylPREDNISolone SUCC 40 MG VIAL IVP (08:34)
--- NOTE | 2018-09-20 09:10 | MERGE_ITS ---
*[facility]* *[facility]* [address] [place] [address] Date of study: 09/20/2018 Transthoracic Echocardiography M-mode, complete 2D, complete spectral Doppler, and color Doppler *STUDY CONCLUSIONS* Summary: 1. Left ventricle: The cavity size was normal. Wall thickness was increased in a pattern of mild LVH. Systolic function was normal. The estimated ejection fraction was 60-65%. Wall motion was normal; there were no regional wall motion abnormalities. 2. Right ventricle: The cavity size was normal. Wall thickness was normal. Systolic function was normal. 3. Tricuspid valve: There was mild-moderate regurgitation. 4. Pulmonary arteries: Pulmonary systolic pressure was increased, in the range of 35mm Hg to 40mm Hg. 5. Pericardium, extracardiac: Trace pericardial effusion along the right ventricular free wall and along the right atrial free wall. *PATIENT PRESENTATION* Height: 177.8cm ((70in) ) S/D Pressure: 136 / 75 Weight: 64kg ((140.7lb) ) BSA: 1.77m^2 Test start time: 09:15 AM. Test stop time: 10:00 AM. PERFORMING Unknown PERFORMING [facility] CUSTOMER CONTACT SPECIALIST RT Yodit Regan)(CT), [facility] CONSULTING Joe Quiñones Yelena A REFERRING Kogan, Yelena A *PROCEDURE DATA* Procedure information: This study was interpreted by [facility]. Pertinent images and digital data are archived for permanent storage and are available for subsequent review. No prior study was available for comparison. Study status: Routine. Transthoracic echocardiography. M-mode, complete 2D, complete spectral Doppler, and color Doppler. A Transthoracic Echocardiogram was performed. Scanning was performed from the parasternal, apical, subcostal, and suprasternal notch acoustic windows. Images were obtained using an [id number] cardiac ultrasound machine. Image quality was adequate. Study completion: The patient tolerated the procedure well. There were no complications. History: PMH: Old CVA. *CARDIAC ANATOMY* Left ventricle: The cavity size was normal. Wall thickness was increased in a pattern of mild LVH. Systolic function was normal. The estimated ejection fraction was 60-65%. Wall motion was normal; there were no regional wall motion abnormalities. Diastolic parameters were not diagnostic. Aortic valve: Trileaflet; normal thickness, mildly calcified leaflets. Mobility was not restricted. Doppler: Transvalvular velocity was within the normal range. There was no stenosis. There was no significant regurgitation. VTI ratio of LVOT to aortic valve: 0.74. Valve area (VTI): 1.8cm^2. Indexed valve area (VTI): 1cm^2/m^2. Peak velocity ratio of LVOT to aortic valve: 0.72. Valve area (Vmax): 1.8cm^2. Indexed valve area (Vmax): 1cm^2/m^2. Mean velocity ratio of LVOT to aortic valve: 0.71. Valve area (Vmean): 1.8cm^2. Indexed valve area (Vmean): 1cm^2/m^2. Mean gradient (S): 4mm Hg. Peak gradient (S): 7.5mm Hg. Aorta: Aortic root: The aortic root was normal in size. Ascending aorta: The ascending aorta was normal in size. Mitral valve: Mildly thickened leaflets. Mobility was not restricted. Doppler: Transvalvular velocity was within the normal range. There was no evidence for stenosis. There was trivial regurgitation. Valve area by pressure half-time: 4.1cm^2. Indexed valve area by pressure half-time: 2.3cm^2/m^2. Peak gradient (D): 3.1mm Hg. Left atrium: The atrium was normal in size. Right ventricle: The cavity size was normal. Wall thickness was normal. Systolic function was normal. Pulmonic valve: Structurally normal valve. Doppler: Transvalvular velocity was within the normal range. There was no evidence for stenosis. There was no significant regurgitation. Peak gradient (S): 4mm Hg. Tricuspid valve: Structurally normal valve. Doppler: Transvalvular velocity was within the normal range. There was no evidence for stenosis. There was mild-moderate regurgitation. Pulmonary artery: Pulmonary systolic pressure was increased, in the range of 35mm Hg to 40mm Hg. Right atrium: The atrium was normal in size. Pericardium: Trace pericardial effusion along the right ventricular free wall and along the right atrial free wall. Post pericardiocentesis: There was no echocardiographic evidence for tamponade physiology. Systemic veins: Inferior vena cava: Well visualized. The vessel was patent and normal in size. The respirophasic diameter changes were in the normal range (greater than or equal to 50%). Baseline ECG: Normal sinus rhythm. Measurements Left ventricle Value Reference LV ID, ED, PLAX 4.2 cm 3.5 - 6.0 LV ID, ES, PLAX 3.1 cm 2.1 - 4.0 LV PW thickness, ED, PLAX 0.9 cm LV end-diastolic volume, 1-p A2C 68 ml LV ejection fraction, 1-p A2C 62 % LV end-diastolic volume, 1-p A4C 101 ml LV ejection fraction, 1-p A4C 69 % LV e', lateral 0.095 m/sec LV E/e', lateral 9 LV e', medial 0.102 m/sec LV E/e', medial 9 LV e', average 0.099 m/sec LV E/e', average 9 Ventricular septum Value Reference IVS thickness, ED, PLAX 1.1 cm LVOT Value Reference LVOT ID, A-P 1.8 cm LVOT area 2.5 cm^2 LVOT peak velocity, S 0.99 m/sec LVOT mean velocity, S 0.67 m/sec LVOT VTI, S 22.2 cm LVOT peak gradient, S 3.9 mm Hg LVOT mean gradient, S 2.1 mm Hg Stroke volume (SV), LVOT DP 55 ml Stroke index (SV/bsa), LVOT DP 31 ml/m^2 Aortic valve Value Reference Aortic valve peak velocity, S 1.4 m/sec Aortic valve mean velocity, S 0.95 m/sec Aortic valve VTI, S 30.0 cm Aortic mean gradient, S 4 mm Hg Aortic peak gradient, S 7.5 mm Hg VTI ratio, LVOT/AV 0.74 Aortic valve area, VTI 1.8 cm^2 Velocity ratio, peak, LVOT/AV 0.72 Aortic valve area, peak velocity 1.8 cm^2 Velocity ratio, mean, LVOT/AV 0.71 Aortic valve area, mean velocity 1.8 cm^2 Aortic valve area/bsa, mean velocity 1 cm^2/m^2 Aorta Value Reference Aortic root ID, ED 3.2 cm Ascending aorta ID, A-P, S 3.3 cm Left atrium Value Reference LA ID, A-P, ES 2.8 cm LA ID/bsa, A-P 1.6 cm/m^2 <=2.2 LA area, ES, A4C 18.8 cm^2 8.8 - 23.4 LA area, ES, A2C 16 cm^2 LA volume/bsa, ES, 1-p A4C 32 ml/m^2 LA volume, ES, 2-p 52 ml LA volume/bsa, ES, 2-p 29 ml/m^2 LA/aortic root ratio 0.87 Mitral valve Value Reference Mitral E-wave peak velocity 0.88 m/sec Mitral A-wave peak velocity 0.9 m/sec Mitral deceleration time 187 ms 150 - 230 Mitral pressure half-time 54 ms Mitral peak gradient, D 3.1 mm Hg Mitral E/A ratio, peak 0.98 Mitral valve area, PHT, DP 4.1 cm^2 Pulmonary veins Value Reference Pulmonary vein peak velocity, S 0.63 m/sec Pulmonary vein peak velocity, D 0.47 m/sec Pulmonary vein velocity ratio, peak, 1.32 S/D Pulmonary vein A-wave reversal peak 0.39 m/sec velocity Tricuspid valve Value Reference Tricuspid regurg peak velocity 3 m/sec Tricuspid peak RV-RA gradient 36.2 mm Hg Right atrium Value Reference RA area, ES, A4C 15.9 cm^2 8.3 - 19.5 Pulmonic valve Value Reference Pulmonic peak gradient, S 4 mm Hg Legend: (L) and (H) benjamin values outside specified reference range. I have personally reviewed the images and have reviewed and edited the reported findings. Electronically signed by Oscar Adams 09/20/2018 11:24
--- NOTE | 2018-09-20 11:09 | OT.INDS ---
Date of service: 09/20/18 Time of Service: 11:09 Occupational Therapy Notes Occupational Therapy Inpatient Discharge Summary Date: 09/20/18 Dates of Service: 09/18/18-09/20/18 Referring Doctor:Blanche Jameson MD OT Orders: Eval and Treat Precautions: Standard Precautions PATIENT PROFILE/ADMITTING DIAGNOSIS: Pt is a 77 year old male who was admitted through the ER on 09/16 for carcinoma of lungs, CAP, URI, episode of falling, tachycardic, tachypneic, and mild hypoxia. 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 Pt has a tub/shower combination and this is difficult for him to perform bathing routine in so her performs his bathing routine standing at the sink. He reports that his baseline level of function is (I) with toileting, dressing, bathing at sink, driving and cooking. Equipment owned/DME: None mentioned per Pt. SUBJECTIVE: NT OBJECTIVE: ROM: AROM pt is not able to due to (B) rotator cuff tendinopathy. PROM able to achieve 140* (B) Strength: Shoulder flexion is 3-/5, bicep 3/5, duct layer helper is weak (R)> (L) FUNCTIONAL MOBILITY/ADLS: Transfers S Sit-Stand S Stand-sit S Sink-Chair S Chair-Sink S BATHING Standing at sink (I) with washing UE/LE. DRESSING Able to (I) don and doff (B) socks (I) with use of adaptive equipment, (I) don and doff hospital gown and pants. GROOMING (I) standing at sink for teeth TOILETING (I) on toilet, able to stand (I) to urinate EATING (I) BALANCE: Static sitting Normal Dynamic Sitting Normal Static Standing Normal Dynamic Standing Good ASSESSMENT: Patient is a 77-year-old male referred to occupational therapy services with diagnosis of admission through the ER on 09/16 for carcinoma of lungs, CAP, URI, episode of falling, tachycardic, tachypneic, and mild hypoxia. Pt was seen for 2 skilled OT services. He is still presenting with shortness of breath with ADLs however is demonstrating increased (I) in ADL routines. OT recommends that pt return home when medically cleared per MD. GOALS 1. Transfers (I) (MET) 2. Dressing Standing position (I) with UE dressing and min (A) for LE dressing with training in adaptive equipment. (MET) 3. Bathing Standing at sink (I) for UE/LE (MET) 4. Toileting On toilet (I) (MET) 5. Eating (I) food to mouth and opening and closing packages in sitting position (MET) 6. Grooming- standing at sink (I) with teeth hygiene (MET) PLAN OF CARE/TREATMENT PLAN: Discharge pt from skilled OT services. DISCHARGE RECOMMENDATIONS Home with home OT when medically cleared per MD OT recommends shower bench, grab bars and removeable shower head to increase pts (I) and safety in bathing routine. TREATMENT TIME/MINUTES/CODES N/A Mary Grace Mayo OTR/L [facility]
--- NOTE | 2018-09-20 12:45 | PT.INTREAT ---
Date of service: 09/20/18 Time of Service: 12:45 PT Notes Inpatient Physical Therapy Treatment Note [facility] Date: 09/20/18 SUBJECTIVE: Radha reports that he continues to transfer and ambulate within his room independently. He reports that he is feeling better today. OBJECTIVE: PAIN: No complaints of pain BED MOBILITY/TRANSFERS Sit-stand: I Stand-sit: I GAIT Assistive Device: No AD Weight bearing: Full Assist: I Distance: > 500' Deviation: Seated rest x1, SOB STAIRS: Up/down 6x4 and 4x6 using one rail and a step over pattern with supervision ASSESSMENT: Patient tolerated session with complaints of SOB with gait training. Patient continues to demonstrate independence with transfers and gait without use of assistive device. Patient continues to require seated rest x1 due to SOB. Patient would benefit from continued conditioning for improved cardiovascular endurance and activity tolerance. PLAN: As per primary PT TREATMENT CODE/TIME: Session 1: 15 minutes; [id number]
--- NOTE | 2018-09-20 12:51 | PTTR_ITS ---
Date of service: 09/20/18 Time of Service: 12:45 PT Notes Inpatient Physical Therapy Treatment Note [facility] Date: 09/20/18 SUBJECTIVE: Radha reports that he continues to transfer and ambulate within his room independently. He reports that he is feeling better today. OBJECTIVE: PAIN: No complaints of pain BED MOBILITY/TRANSFERS Sit-stand: I Stand-sit: I GAIT Assistive Device: No AD Weight bearing: Full Assist: I Distance: > 500' Deviation: Seated rest x1, SOB STAIRS: Up/down 6x4 and 4x6 using one rail and a step over pattern with supervision ASSESSMENT: Patient tolerated session with complaints of SOB with gait training. Patient continues to demonstrate independence with transfers and gait without use of assistive device. Patient continues to require seated rest x1 due to S OB. Patient would benefit from continued conditioning for improved cardiovascular endurance and activity tolerance. PLAN: As per primary PT TREATMENT CODE/TIME: Session 1: 15 minutes; [id number]
--- NOTE | 2018-09-20 14:04 | PDOC.CMDIS ---
- If Service Date Differs Date of service: 09/20/18 Time of Service: 14:04 LACE Index Scoring Tool - Questions: Length of Stay (in days): 4 - 6 Acuity (Admit via E.D.?): Yes Comorbidities: Chronic Pulmonary Disease E.D. Visits: 2 - Answers: Total Score: 11 Risk of Readmission: High Risk Care Management Discharge Reason for Hospitalization: Lung cancer, CAP, COPD Discharge Plan: Radha will return home with no anticipated services. He will F/U wt PCP and plan of care as prescribed. Radha will also have a ZIO patch placed prior to DC, and will f/u with Pulmonology. [facility] to transport. Patient/Family Education Needs: Review DC instructions, any limitations, and ongoing DC planning discussion. Discuss 'Ask Me Three'
--- NOTE | 2018-09-20 15:47 | W.PM.DS.N ---
Date of service: 09/20/18 Time of Service: 15:47 DS: Diagnosis Discharge Diagnosis (1) CAP (community acquired pneumonia): Status: Acute (2) CVA (cerebral vascular accident): Status: Chronic (3) COPD exacerbation: Status: Acute (4) Lung mass: Status: Acute (5) Edema of left lower extremity: Status: Acute Discharge Plan Disposition Patient Disposition: HOME Condition: Stable Discharge Details Reason For Visit: malignancy,cap,acute exacerbation of copd w/hypoxi Admit Date/Time: 09/16/18 12:55 Admit Provider: Blanche Jameson Attending Provider: Blanche Jameson [facility] Course: Mr. Cabello is a 77 year old man with a past medical history significant for COPD, former smoker, who presented to the ED on 09/16/18 after being seen 2 days prior in his PCP office and started on azithromycin for shortness of breath and productive cough of 3 weeks duration. On presentation to the ED, he was found to be tachypneic, tachycardic and hypoxic with an oxygen saturation of 88%. Chest x-ray in the emergency department did not reveal an acute cardiopulmonary process. He went on to have a chest CT which showed a 3.1 cm mass in the right upper lobe suspicious for primary carcinoma. There was an additional 8 mm nodule which could represent a metastatic nodule or additional primary, a 4 mm right upper lobe nodule, nonspecific, as well as mild right hilar adenopathy. Head CT revealed an area of low-attenuation in the right frontal lobe concerning for cerebral contusion versus subacute or old infarct versus mass. There was concern that this could possibly represent metastatic disease and he was referred for an MRI brain. His MRI did not reveal metastasis but did show an old CVA. He was treated with rocephin and doxycycline for presumed community acquired pneumonia and COPD exacerbation. He received IV steroids, supplemental oxygen and nebulizer treatments with improvement in his respiratory status. On the day of discharge, he is no longer requiring oxygen, he denies shortness of breath and his cough is rare. He will be discharged home to complete antibiotic course and taper off of prednisone. Most importantly, he will follow up with Pulmonology on the new lung mass (3.1cm) noted in his right upper lobe. Given the MRI findings of old CVA, he went on to have a carotid artery ultrasound which showed heavy calcified plaque greatest in the right common carotid bulb. No significant internal carotid artery stenosis. His left lower extremity was edematous on admission and he had bilateral lower extremity venous studies which were negative, no evidence of DVT. He had an echocardiogram and was found to have an LVEF of 60-65%, mild to moderate regurgitation of the tricuspid valve, and increased pulmonary systolic pressure in the range of 35-40 mmHg, as well as a trace pericardial effusion along the right ventricular free wall and along the right atrial free wall. Despite his normal lipid panel, he is discharged home on aspirin and statin therapy for secondary stroke prevention. He will be discharged home with a ZioPatch for continuous cardiac monitoring. He will follow up with neurology as an outpatient. He is discharged home in improved condition today. He will complete his course of antibiotics as an outpatient. He will taper off of prednisone following discharge. He will follow up with his PCP. Pulmonology will contact him to set up an appointment. Neurology will contact him with a follow up appointment. Home Meds and New Rx's Prescriptions: New benzonatate 100 mg Capsule 100 mg PO TID PRNQty: 15 RF: 0 pantoprazole 40 mg Tablet,Delayed Release (Dr/Ec) 40 mg PO DAILY@0730 Qty: 30 RF: 0 lidocaine [Lidoderm] 5 % Adhesive Patch,Medicated 2 patch topical Q24H Qty: 28 RF: 0 aspirin 81 mg Tablet,Chewable 81 mg PO DAILY Qty: 30 RF: 0 guaifenesin [Mucinex] 600 mg Tablet Extended Release 12hr 600 mg PO BID Qty: 10 RF: 0 prednisone 10 mg tablet 10 mg PO DAILY Qty: 36 RF: 0 doxycycline hyclate 100 mg capsule 100 mg PO BID Qty: 6 RF: 0 cefuroxime axetil 250 mg tablet 250 mg PO Q12H Qty: 6 RF: 0 atorvastatin 10 mg tablet 10 mg PO QHS Qty: 30 RF: 0 Continued Flovent HFA 120 PUFF HFA aerosol inhaler 2 puff Inhalation BID Qty: 1 RF: 0 ipratropium-albuterol 3 ML solution for nebulization 3 ml UPD QID PRN PRN (Reason: Shortness Of Breath) Qty: 60 RF: 0 multivitamin [Once Daily] 1 EACH tablet 1 tab PO DAILY RF: 0 tamsulosin 0.4 MG capsule 0.4 mg PO DAILY RF: 0 Serevent Diskus 1 EACH blister with device 1 puff Inhalation BID RF: 0 albuterol sulfate [ProAir HFA] 200 PUFF/INH HFA aerosol inhaler 2 puff Inhalation PRN PRNRF: 0 omega-3 fatty acids-fish oil [Fish Oil] 1 EACH capsule 1 cap PO DAILY RF: 0 Discontinued prednisone 10 MG tablet 40 mg PO DAILY RF: 0 azithromycin 250 mg Tablet 250 mg PO DAILY RF: 0 Discharge Instructions Instructions: COPD (Chronic Obstructive Pulmonary Disease) (DC), Community Acquired Pneumonia (DC) Additional Instructions: Take all of the antibiotics until they are gone. Taper off prednisone as directed: Take 4 tablets tonight, then take 4 tablets x2 days (in the morning), then take 3 tabs x2 days, then take 2 tabs x2 days, then take 1 tab x2 days, then stop. Begin taking aspirin and statin for secondary stroke prevention. Follow up with Neurology about old stroke. Follow up with pulmonology about the lung mass. Follow up with your PCP as scheduled. Take care! Stand Alone Forms: Nursing Discharge Form [place] [place] [Other] (The office will call you to schedule an appointment.) Joe Quiñones [Primary Care Provider] - 10/06/18 2:10 pm Vicki Marsh MD [ [facility] STAFF PHYSICIAN] - (The Neurology office will call you to schedule an appointment.) Activity:: Activity as Tolerated Equipment/Supplies:: No Equipment Needed Diet:: Heart healthy Discharge Orders Discharge Orders: Discharge Order (Routine); Ordered 09/20/18 Ordered By: Rula Colby Exam Narrative Exam Narrative: General: Thin, chronically ill-appearing man, appears comfortable, sitting up in the chair, A&Ox3, in NAD. HEENT: face appears red, pupils equal and round, extraocular movements intact, mucous membranes moist. Neck: Supple, no JVD. Heart: Heart has regular rate and rhythm, no murmur appreciated. Lungs: Respirations even and unlabored. Few scattered expiratory wheezes throughout. Abdomen: Normoactive bowel sounds throughout, soft, nontender on palpation, nondistended Extremities: LLE with trace edema, RLE without edema, no clubbing or cyanosis. DS: Data Vitals/I&O Vitals and I&O: Vital Signs Temperature 36.5 C 09/20/18 11:13 Temperature Source Tympanic 09/20/18 11:13 Pulse 78 09/20/18 11:13 Pulse Rhythm Regular 09/20/18 09:40 Pulse 84 09/16/18 13:40 Respiratory Rate 20 09/20/18 11:13 Respiratory Effort 09/20/18 09:40 Respiratory Depth Normal 09/20/18 09:40 Respiratory Pattern Normal 09/20/18 09:40 Blood Pressure 144/75 H 09/20/18 11:13 Blood Pressure Mean 72 09/16/18 11:45 Pulse Oximetry 93 L 09/20/18 11:13 Oxygen Delivery Method Room Air 09/20/18 11:13 Oxygen Flow Rate 0 09/20/18 11:13 Pain Level 0 09/20/18 03:50 Comment 09/20/18 03:50 Intake & Output 09/19/18 09/20/18 09/20/18 23:59 11:59 23:59 Intake Total 580 / 890 768.334 / 868.334 100 / 868.334 Output Total 650 / 850 2250 / 2250 Balance -70 / 40 -1481.666 / -1381.666 100 / -1381.666 Weight 64.5 kg Intake: IV 100 / 290 218.334 / 318.334 100 / 318.334 Oral 480 / 600 550 / 550 Output: Urine 650 / 850 2250 / 2250 Other: Urine Color Yellow Yellow Urine Appearance Clear Clear Urine Odor Normal Normal Comment SOME IN HAT PRIOR TO THIS VOID FOR A TOTAL OF 600CC Voiding Methods Toilet Toilet Completed studies during hospitalization [Text1]: 09/16/18: NONCONTRAST HEAD CT: There are no prior comparison exams. There is an area of low attenuation seen in the right frontal lobe anteriorly, just above the level of the orbit. The findings could represent sequelae of brain contusion. An area of infarct or mass cannot be excluded. There is no significant mass effect on the ventricles, which are normal in size. No intracranial hemorrhage or skull fracture is seen. The sinuses and mastoid air cells appear clear. IMPRESSION: Area of low attenuation in the right frontal lobe could represent sequelae of cerebral contusion or represent an area of old or subacute infarction versus mass. MRI is recommended for further evaluation. CT OF THE CERVICAL SPINE: There are no prior comparison exams. There is no evidence of fracture or subluxation. There are degenerative disc changes and facet degenerative changes causing neural foraminal narrowing. There is no significant central canal stenosis. No lytic or blastic bony lesions are seen. Emphysematous changes are noted in the lung apices. There is a large spiculated mass in the right upper lobe measuring 3.1 cm in diameter, suspicious for lung carcinoma. IMPRESSION: No acute bony abnormality in the spine. A 3.1 cm suspicious right upper lobe pulmonary mass is noted PE CHEST CT: CT angiography was performed with multi slice acquisition and multi planar and 3D reconstruction. The pulmonary arteries and aorta are well opacified with IV contrast and there is no evidence of pulmonary emboli or aortic dissection. Coronary artery and aortic calcifications are seen. There is motion at the aortic root. There is a 3.1 cm. spiculated mass in the right lung apex close to the pleura. There is slight adjacent pleural thickening. An additional 8 mm. nodule is seen laterally in the right middle lobe. There is a nonspecific 4 mm. nodule seen in the inferior lateral right upper lobe. Patchy densities are noted at the right lung base which could represent atelectasis versus pneumonia. A linear area of atelectasis is seen in the lingula. There are underlying emphysematous changes. There is mild right hilar lymph node enlargement, 2.3 by 1.4 cm. No pleural or pericardial effusions, pneumothorax or fractures are seen. Degenerative changes are seen in the spine. No lytic or blastic bony lesions are identified. The visualized portions of the upper abdominal organs are unremarkable. IMPRESSION: 3.1 cm. mass in the right upper lobe is suspicious for primary carcinoma. There is an additional 8 mm. nodule which could represent a metastatic nodule or additional primary. 4 mm. right upper lobe nodule is nonspecific. There is mild right hilar adenopathy. 09/18/18: MRI OF THE BRAIN: T2 sagittal, T1, T2, FLAIR, diffusion and gradient echo axial and post gadolinium T1 axial and coronal sequences were performed. Comparison is made with head CT dated September,. There is a wedge-shaped area of low signal in T1 weighted images and high signal on T2 and FLAIR weighted images in the right frontal lobe. There is no evidence of enhancement post contrast or restricted diffusion. No additional abnormalities are identified. The ventricles are normal in size. The vascular flow voids appear intact. The orbits, sinuses and mastoid air cells appear clear. IMPRESSION: Area of high signal in the right frontal lobe shows no enhancement or restricted diffusion. The findings could represent an old infarct. 09/19/18: BILATERAL LOWER EXTREMITY ULTRASOUND: The femoral and popliteal veins and visualized calf veins are freely compressible. No thrombus is visible. The Doppler venous waveform augments normally. No Camp's cyst is seen. IMPRESSION: Negative bilateral lower extremity ultrasound. No evidence of DVT. 09/19/18: CAROTID ULTRASOUND: The common carotid arteries show mild intimal thickening. There is calcific plaque seen in both common carotid bulbs and extending into the internal carotid arteries bilaterally. The velocity measurements are within the normal range, consistent with a less than 50% stenosis. The vertebral arteries show antegrade flow. IMPRESSION: Heavy calcified plaque greatest in the right common carotid bulb. No significant internal carotid artery stenosis. 09/20/18: Transthoracic Echocardiography M-mode, complete 2D, complete spectral Doppler, and color Doppler *STUDY CONCLUSIONS* Summary: 1. Left ventricle: The cavity size was normal. Wall thickness was increased in a pattern of mild LVH. Systolic function was normal. The estimated ejection fraction was 60-65%. Wall motion was normal; there were no regional wall motion abnormalities. 2. Right ventricle: The cavity size was normal. Wall thickness was normal. Systolic function was normal. 3. Tricuspid valve: There was mild-moderate regurgitation. 4. Pulmonary arteries: Pulmonary systolic pressure was increased, in the range of 35mm Hg to 40mm Hg. 5. Pericardium, extracardiac: Trace pericardial effusion along the right ventricular free wall and along the right atrial free wall. Labs on day of discharge: Labs from last 24 hours 09/19/18 09/19/18 23:30 23:30 Legionella Source Pending Legionella Reprt Status Pending Legionella Final Result Pending Ur Strep pneumoniae Ag Pending 09/20/18 07:58 Sputum Sputum Culture - Pending Preliminary micro results at discharge 09/16/18 12:30 Blood Culture - Preliminary Blood NO GROWTH 96 HOURS 09/16/18 12:30 Blood Culture - Preliminary Blood NO GROWTH 96 HOURS 09/20/18 07:58 Sputum Culture - Pending Sputum [facility] Medical History CVA (cerebral vascular accident) (Chronic) Edema of left lower extremity (Acute) Lung mass (Acute) CAP (community acquired pneumonia) (Acute) COPD exacerbation (Acute) Social History Smoking and Tabacco status: Former Tobacco Use
[2018-09-20] MEDS: Lidocaine 5% Patch 2 PATCH TP (17:38)
[2018-09-20] MEDS: Enoxaparin 40 MG/0.4 ML SYR SC (17:38)
[2018-09-22 14:30] LABS: Streptococcus Pneumoniae Ag, U Negative (Negative)
--- NOTE | 2018-09-22 17:12 | INDS_ITS ---
Date of service: 09/22/18 PT Notes Inpatient Physical Therapy Discharge Summary Dates: 09/22/2018 Dates of Service: 09/17/2018?09/20/2018 Referring Doctor: Blanche Jameson MD PT Orders: PT CONSULT: Evaluate and treat Precautions: Falls Patient Profile/Admitting Diagnosis: A 77-year-old male admitted recently with pneumonia. PMHX: Bilateral rotator cuff tendinopathy and adhesive capsules Social History/Home Situation: Lives at home with his , is retired from [employer] Current Functional Limitations: Has difficulty performing activities at or above shoulder level or behind his back. He has difficulty sleeping on his side for more than 15 or 20 minutes Equipment Owned/DME: Lives on the second floor, 7 steps to the upstairs bedroom. He has a shower/tub which she is capable of using, but generally takes sponge baths. This is a summary of care provided by physical therapy staff for patient on the duration of date indicated above. OBJECTIVE: General Observation: No abnormal pain behavior noted Mental Status: Alert and oriented x3 Pain: Complains of intermittent discomfort throughout the lateral aspect of his humeri when attempting active movements with his shoulders ROM: Cervical spine motion is limited with an articular pattern with rotation approximately 15-20 degrees and side bending at 10 degrees but without pain on movement or reproduction of his symptoms. His active shoulder movements are limited to less than 45 degrees associated with excessive scapular substitution, and his thumbs are at approximately T12 level and reach behind his back. This causes end range drawing throughout the anterior aspect of the proximal humeri. His pure glenohumeral movement is 60-70 degrees bilaterally. His active assistive range of motion the supine position: Flexion 120 degrees, abduction 90 degrees, external rotation 45 degrees, and internal rotation at 80 degrees. His elbow, forearm, and wrist movements are within functional limits. Palpation: He is nontender over the AC/SC joints, subacromially over the greater tuberosity. He has significant atrophic changes throughout the scapula bilaterally particularly the infra and supra spinatus fosses. Strength: When resisting his rotator cuff bilaterally his external rotation, or his infraspinatus, 0/5, scaption and pure abduction is 1/5, internal rotation is 4/5. His biceps mechanism for elbow flexion and forearm supination is -5/5. I do not detect any Chance deformities Sensation: Intact BED MOBILITY/TRANSFERS: Supine-sit independent Sit-supine independent Sit-stand independent Stand-sit independent Bed-Chair independent Chair-bed independent GAIT: Patient is able to tolerate over 500 feet of level surface ambulation without an assistive device without any LOB noted. He was able to tolerate 6 x 4 inch steps and 4 times of the 6 inch steps while holding onto one rail using step over pattern. No LOB and SOB observed. BALANCE: Static Sitting: Good Dynamic Sitting: Good Static Standing: Good Dynamic Standing: Good ASSESSMENT: Assessment: Patient is a 77 year old male being discharged from physical therapy services admitted to this facility with the diagnosis of pneumonia. Patient presents with clinical signs and symptoms consistent with this diagnosis, as well as chronic rotator cuff tendinopathy with resultant mild adhesive capsulitis. Patient goes home today now at highest functional level. GOALS ( Met / Not Met): Goals X1 week Increase exercise tolerance to walking greater than 500 feet, along with stair climbing, etc. MET DISCHARGE PLAN/RECOMMENDATIONS: Discharged home at safest functional level. Thank you for this referral. Adelina Storey, PT, DPT, CLT [facility]
--- NOTE | 2018-10-11 09:09 | ZIOP_ITS ---
ZIO Patch DATE OF DICTATION October 11, 2018 STUDY INDICATION Stroke. REQUESTING PROVIDER Joe Quiñones M.D. FINDINGS The patient was monitored for 13 days and 21 hours. COMMENTS The predominant underlying rhythm was sinus rhythm. Average heart rate in sinus rhythm 71 beats per minute, range 47 to 180 beats per minute. There were 72 episodes of supraventricular tachycardia, average heart rate 130 beats per minute, range 66 to 222 beats per minute. The longest episode lasted 20.3 seconds with an average heart rate of 134 beats per minute. Episodes too short to distinguish from atrial fibrillation. There were no pauses greater than 3 seconds. There was no higher degree heart block. There were no patient events. FINAL INTERPRETATION Bursts of nonsustained supraventricular tachycardia, asymptomatic. Oscar Adams M.D. ÁLVARO/rosy T- 10/11/18
== END 2018-09-20 18:23 | disposition home or self-care (01) | DRG 194 ==
LOC: ER 13:24 → MS 14:00
PROVIDERS: Nurse Practitioner Family; Admitting Provider Internal Medicine; Emergency Provider Student in an Organized Health Care Education/Training Program; PCP Family Medicine; Visit Provider Internal Medicine
DX: J18.9 Pneumonia, unspecified organism (principal); J44.0 Chronic obstructive pulmonary disease with (acute) lower respiratory infection; C34.11 Malignant neoplasm of upper lobe, right bronchus or lung; J44.1 Chronic obstructive pulmonary disease with (acute) exacerbation; R90.89 Other abnormal findings on diagnostic imaging of central nervous system; R09.02 Hypoxemia; Z87.891 Personal history of nicotine dependence; R26.89 Other abnormalities of gait and mobility; M75.102 Unspecified rotator cuff tear or rupture of left shoulder, not specified as traumatic; M75.101 Unspecified rotator cuff tear or rupture of right shoulder, not specified as traumatic; R60.0 Localized edema; I07.1 Rheumatic tricuspid insufficiency
CPT/HCPCS: 36410; 36415; 70553; 71275; 80048; 80053; 80061; 82805; 83721; 87040; 87449; 87631; 93005; 93225; 93306; 94640; 96361; 96365; 96367; 96375; 97162; 97166; 97530; 97535; 99223; 99232; 99239; 99285; J1650; 70450; 72125; 81003; 83605; 83735; 84484; 85025; 87070; 87086; 87205; 87450; 93010; 93880; 93970; J0696; J2930; J3490; J7620

== ENCOUNTER 2018-10-11 08:17 | Outpatient (CLI) | payer OTHER, SELFPAY | END 2018-10-11 08:37 | PROVIDERS: PCP Family Medicine; Referring Provider Family Medicine; Visit Provider Student in an Organized Health Care Education/Training Program | DX: I69.30 Unspecified sequelae of cerebral infarction (principal) | CPT/HCPCS: 0298T ==

== ENCOUNTER → 2018-10-18 07:48 | Outpatient (BNVA) | payer OTHER, SELFPAY | PROVIDERS: PCP Family Medicine; Visit Provider Psychiatry & Neurology Neurology | DX: G25.0 Essential tremor (principal); I63.9 Cerebral infarction, unspecified; I10 Essential (primary) hypertension; J44.9 Chronic obstructive pulmonary disease, unspecified; Z87.891 Personal history of nicotine dependence | CPT/HCPCS: 99205; 99215 ==

== ENCOUNTER 2018-11-09 22:02 | Emergency (ER) | payer OTHER, SELFPAY ==
[2018-11-09 22:06] VITALS: BP 160/86; PULSE 90; RESP 16; TEMP 36.6; O2SAT 95
--- NOTE | 2018-11-09 22:39 | W.ED.GENAD ---
Discharge Plan Disposition Patient Disposition: HOME Condition: Good Discharge Details Chief Complaint: Urinary Clinical Impression: Acute urinary retention Primary Care Provider: Joe Quiñones ED Provider: Kei Huston Home Meds and New Rx's Prescriptions: Continued Flovent HFA 120 PUFF HFA aerosol inhaler 2 puff Inhalation BID Qty: 1 RF: 0 ipratropium-albuterol 3 ML solution for nebulization 3 ml UPD QID PRN PRN (Reason: Shortness Of Breath) Qty: 60 RF: 0 multivitamin [Once Daily] 1 EACH tablet 1 tab PO DAILY RF: 0 tamsulosin 0.4 MG capsule 0.4 mg PO DAILY RF: 0 Serevent Diskus 1 EACH blister with device 1 puff Inhalation BID RF: 0 albuterol sulfate [ProAir HFA] 200 PUFF/INH HFA aerosol inhaler 2 puff Inhalation PRN PRNRF: 0 omega-3 fatty acids-fish oil [Fish Oil] 1 EACH capsule 1 cap PO DAILY RF: 0 benzonatate 100 mg Capsule 100 mg PO TID PRNQty: 15 RF: 0 lidocaine [Lidoderm] 5 % Adhesive Patch,Medicated 2 patch topical Q24H Qty: 28 RF: 0 aspirin 81 mg Tablet,Chewable 81 mg PO DAILY Qty: 30 RF: 0 Discharge Instructions Instructions: Urinary Retention in Men (ED), Narvaez Catheter Placement and Care (ED) Additional Instructions: We will leave the Narvaez in over the weekend. Please contact primary care tomorrow for follow-up on Tuesday. Return to ED if fever, abdominal pain, Narvaez not working. Referrals: Joe Quiñones [Primary Care Provider] - Discharge Data Discharge Date/Time-TO BE ENTERED AT DEPARTURE: 11/09/18 23:06 Medical Decision Making Patient with urinary retention after procedure requiring sedation/anesthesia at [facility]. Narvaez catheter placed by nursing. Bladder decompressed and pain in the suprapubic area resolved. On exam has a benign abdomen. We will leave the Narvaez in place over the weekend. Follow-up with primary care on Tuesday to have it removed. Return to the ED if there is any fever, abdominal pain, malfunctioning of the Narvaez. HPI General Mode of arrival: ambulatory. Date/Time Provider Initiated Documentation: 11/09/18 22:38. Limitations to Documentation: no limitations. Information obtained by: patient. HPI Narrative: Patient presents to ED with inability to urinate. Patient had a procedure at [facility] today requiring sedation. Since returning home he has been unable to urinate. He now has significant discomfort and pain in the suprapubic area. Comes in for evaluation. Related Data Home Medications Medication Instructions Recorded Confirmed Flovent HFA 2 puff INHALATION BID #1 inh 10/15/14 09/16/18 ipratropium-albuterol 3 ml UPD QID PRN PRN #60 vial 10/15/14 09/16/18 Serevent Diskus 1 puff INHALATION BID 11/18/17 09/16/18 albuterol sulfate [ProAir HFA] 2 puff INHALATION PRN PRN 11/18/17 11/18/17 multivitamin [Once Daily] 1 tab PO DAILY 11/18/17 09/16/18 omega-3 fatty acids-fish oil [Fish 1 cap PO DAILY 11/18/17 09/16/18 Oil] tamsulosin 0.4 mg PO DAILY 11/18/17 09/16/18 aspirin 81 mg PO DAILY #30 tab 09/20/18 benzonatate 100 mg PO TID PRN #15 cap 09/20/18 lidocaine [Lidoderm] 2 patch TOPICAL Q24H #28 ea 09/20/18 Previous Rx's Medication Instructions Recorded Flovent HFA 2 puff INHALATION BID #1 inh 10/15/14 ipratropium-albuterol 3 ml UPD QID PRN PRN #60 vial 10/15/14 aspirin 81 mg PO DAILY #30 tab 09/20/18 benzonatate 100 mg PO TID PRN #15 cap 09/20/18 lidocaine [Lidoderm] 2 patch TOPICAL Q24H #28 ea 09/20/18 Allergies Allergy/AdvReac Type Severity Reaction Status Date / Time No Known Allergies Allergy Unverified 10/18/18 08:19 General Stated Complaint: Urinary CEE: 3 Review of Systems Constitutional Denies fever(s) Gastrointestinal Reports abdominal pain Genitourinary Reports difficulty urinating and Denies flank pain [facility] [place] Medical History GERD (gastroesophageal reflux disease) (Chronic) BPH (benign prostatic hyperplasia) (Chronic) COPD (chronic obstructive pulmonary disease) (Chronic) Essential tremor (Acute) CVA (cerebral vascular accident) (Chronic) Edema of left lower extremity (Acute) Lung mass (Acute) Former smoker (Acute) Social History Smoking/Tobacco Use Status: Former Tobacco Use Alcohol Intake: never Drug use: Never Household members: spouse Housing: house Number of Children: 2 current occupation: Retired. [employer]. Do you feel safe in your relationship?: Yes Exam Const General: cooperative, comfortable and no acute distress GI Inspection: normal to inspection Palpation: soft and nontender Other: After Narvaez insertion Male General Exam: Yes normal external exam Course Vital Signs Temperature 97.9 F 11/09/18 22:06 Pulse 90 11/09/18 22:06 Respiratory Rate 16 11/09/18 22:06 Blood Pressure 160/86 H 11/09/18 22:06 Pulse Oximetry 95 11/09/18 22:06 Temperature 97.9 F 11/09/18 22:06 Temperature Source Skin 11/09/18 22:06 Pulse 90 11/09/18 22:06 Respiratory Rate 16 11/09/18 22:06 Blood Pressure 160/86 H 11/09/18 22:06 Pulse Oximetry 95 11/09/18 22:06 Oxygen Delivery Method Room Air 11/09/18 22:06 Oxygen Flow Rate 0 11/09/18 22:06
[2018-11-09 23:13] VITALS: BP 160/86; PULSE 90; RESP 16; TEMP 36.6; O2SAT 95
== END 2018-11-09 23:06 | disposition home or self-care (01) ==
PROVIDERS: Emergency Provider Emergency Medicine; PCP Family Medicine
DX: N99.89 Other postprocedural complications and disorders of genitourinary system (principal); R33.8 Other retention of urine
CPT/HCPCS: 51702; 99283

== ENCOUNTER 2018-12-01 09:19 | Outpatient (CLI) | payer OTHER, SELFPAY ==
[2018-12-01 09:41] LABS: Abs Immature Grans 0.01 k/cumm (0.0-0.09); Absolute Basophil Count 0.05 k/cumm (0.0-0.2); Absolute Eosinophil Count 0.22 k/cumm (0.0-0.7); Absolute Lymphocyte Count 1.15 k/cumm (1.2-3.4); Absolute Monocyte Count 0.48 k/cumm (0.11-0.7); Absolute Neutrophil Count 3.03 k/cumm (1.2-6.7); Eosinophils % 4.5; HGB 13.6 g/dL (13.5-17.5); Immature Grans % 0.2; Lymphocytes % 23.3; Mean Corp. HGB Concentration 32.4 g/dL (32.0-36.0); Mean Corpuscular Hemoglobin 31.3 pg (27.0-33.0); Mean Corpuscular Volume 96.6 fL (80-95); Mean Platelet Volume 8.9 fL (8.0-11.0); Monocytes % 9.7; Neutrophils % 61.3; Platelet Count 279 x1000/uL (130-400); RBC 4.35 m/cumm (4.50-6.00); RBC Distribution Width 14.5 % (11.8-14.1); White Blood Cell Count 4.94 k/cumm (4.4-10.8)
[2018-12-01 09:53] LABS: ALT 37 U/L (12-78); AST 26 U/L (15-37); Albumin 3.1 g/dL (3.4-5.0); Alkaline Phosphatase 104 U/L (46-116); Anion Gap 8.8 mmol/L (3-11); BUN 20 mg/dL (7-18); Bilirubin, Total 0.3 mg/dL (0.2-1.0); CO2 28.2 mmol/L (21.0-32.0); CREATININE 0.88 mg/dL (0.70-1.30); Calcium 8.5 mg/dL (8.5-10.1); Chloride 108 mmol/L (98-107); Glucose 104 mg/dL (70-100); Potassium 3.9 mmol/L (3.5-5.1); Sodium 145 mmol/L (136-145); Total Protein 6.1 g/dL (6.4-8.2)
== END 2018-12-01 09:39 ==
PROVIDERS: PCP Family Medicine
DX: R91.8 Other nonspecific abnormal finding of lung field (principal)
CPT/HCPCS: 36415; 80053; 85025

== ENCOUNTER 2018-12-12 02:32 | Outpatient (CLI) | payer OTHER, SELFPAY ==
[2018-12-12 10:34] LABS: Abs Immature Grans 0.01 k/cumm (0.0-0.09); Absolute Basophil Count 0.04 k/cumm (0.0-0.2); Absolute Eosinophil Count 0.12 k/cumm (0.0-0.7); Absolute Lymphocyte Count 0.75 k/cumm (1.2-3.4); Absolute Monocyte Count 0.25 k/cumm (0.11-0.7); Absolute Neutrophil Count 2.67 k/cumm (1.2-6.7); Eosinophils % 3.1; HCT 39.4 % (40.0-50.0); HGB 12.8 g/dL (13.5-17.5); Immature Grans % 0.3; Lymphocytes % 19.5; Mean Corp. HGB Concentration 32.5 g/dL (32.0-36.0); Mean Corpuscular Hemoglobin 30.9 pg (27.0-33.0); Mean Corpuscular Volume 95.2 fL (80-95); Mean Platelet Volume 9.4 fL (8.0-11.0); Monocytes % 6.5; Neutrophils % 69.6; Platelet Count 227 x1000/uL (130-400); RBC 4.14 m/cumm (4.50-6.00); RBC Distribution Width 14.1 % (11.8-14.1); White Blood Cell Count 3.84 k/cumm (4.4-10.8)
[2018-12-12 10:44] LABS: ALT 63 U/L (12-78); AST 32 U/L (15-37); Albumin 3.1 g/dL (3.4-5.0); Alkaline Phosphatase 95 U/L (46-116); Anion Gap 8.8 mmol/L (3-11); BUN 19 mg/dL (7-18); Bilirubin, Total 0.2 mg/dL (0.2-1.0); CO2 27.2 mmol/L (21.0-32.0); CREATININE 0.87 mg/dL (0.70-1.30); Calcium 8.9 mg/dL (8.5-10.1); Chloride 106 mmol/L (98-107); Glucose 105 mg/dL (70-100); Potassium 4.5 mmol/L (3.5-5.1); Sodium 142 mmol/L (136-145); Total Protein 6.1 g/dL (6.4-8.2)
== END 2018-12-12 02:52 ==
LOC: LOS 02:34 → LBO 10:04
PROVIDERS: PCP Family Medicine
DX: R91.8 Other nonspecific abnormal finding of lung field (principal)
CPT/HCPCS: 36415; 80053; 85025

== ENCOUNTER 2018-12-18 07:44 | Outpatient (CLI) | payer OTHER, SELFPAY ==
[2018-12-18 11:04] LABS: Absolute Basophil Count 0.03 k/cumm (0.0-0.2); Absolute Eosinophil Count 0.05 k/cumm (0.0-0.7); Absolute Lymphocyte Count 0.66 k/cumm (1.2-3.4); Absolute Monocyte Count 0.13 k/cumm (0.11-0.7); Absolute Neutrophil Count 1.49 k/cumm (1.2-6.7); Basophils % 1.3; Eosinophils % 2.1; HCT 38.9 % (40.0-50.0); HGB 12.9 g/dL (13.5-17.5); Mean Corp. HGB Concentration 33.2 g/dL (32.0-36.0); Mean Corpuscular Hemoglobin 31.3 pg (27.0-33.0); Mean Corpuscular Volume 94.4 fL (80-95); Mean Platelet Volume 8.9 fL (8.0-11.0); Monocytes % 5.5; Platelet Count 197 x1000/uL (130-400); RBC 4.12 m/cumm (4.50-6.00); RBC Distribution Width 14.1 % (11.8-14.1); White Blood Cell Count 2.36 k/cumm (4.4-10.8)
[2018-12-18 11:19] LABS: ALT 60 U/L (12-78); AST 34 U/L (15-37); Albumin 3.3 g/dL (3.4-5.0); Alkaline Phosphatase 87 U/L (46-116); Anion Gap 7.7 mmol/L (3-11); BUN 24 mg/dL (7-18); Bilirubin, Total 0.3 mg/dL (0.2-1.0); CO2 26.3 mmol/L (21.0-32.0); CREATININE 0.78 mg/dL (0.70-1.30); Calcium 8.9 mg/dL (8.5-10.1); Chloride 106 mmol/L (98-107); Glucose 95 mg/dL (70-100); Potassium 4.7 mmol/L (3.5-5.1); Sodium 140 mmol/L (136-145); Total Protein 6.3 g/dL (6.4-8.2)
[2018-12-18 11:30] LABS: Diff Comment Manual Differential; Neutrophils % 63.1; RBC Morphology Normal
== END 2018-12-18 08:04 ==
LOC: NCHCO 07:46 → LBO 10:51
PROVIDERS: Nurse Practitioner Family; PCP Family Medicine
DX: C34.91 Malignant neoplasm of unspecified part of right bronchus or lung (principal)
CPT/HCPCS: 36415; 80053; 85025

== ENCOUNTER 2018-12-25 02:18 | Outpatient (CLI) | payer OTHER, SELFPAY ==
[2018-12-25 10:09] LABS: Abs Immature Grans 0.01 k/cumm (0.0-0.09); Absolute Basophil Count 0.03 k/cumm (0.0-0.2); Absolute Eosinophil Count 0.01 k/cumm (0.0-0.7); Absolute Lymphocyte Count 0.51 k/cumm (1.2-3.4); Absolute Monocyte Count 0.21 k/cumm (0.11-0.7); Absolute Neutrophil Count 1.65 k/cumm (1.2-6.7); Basophils % 1.2; Eosinophils % 0.4; HCT 37.1 % (40.0-50.0); HGB 12.3 g/dL (13.5-17.5); Immature Grans % 0.4; Lymphocytes % 21.1; Mean Corp. HGB Concentration 33.2 g/dL (32.0-36.0); Mean Corpuscular Hemoglobin 31.4 pg (27.0-33.0); Mean Corpuscular Volume 94.6 fL (80-95); Monocytes % 8.7; Neutrophils % 68.2; Platelet Count 224 x1000/uL (130-400); RBC 3.92 m/cumm (4.50-6.00); White Blood Cell Count 2.42 k/cumm (4.4-10.8)
[2018-12-25 10:20] LABS: ALT 66 U/L (12-78); AST 33 U/L (15-37); Alkaline Phosphatase 114 U/L (46-116); BUN 21 mg/dL (7-18); Bilirubin, Total 0.2 mg/dL (0.2-1.0); CREATININE 0.84 mg/dL (0.70-1.30); Calcium 8.4 mg/dL (8.5-10.1); Chloride 108 mmol/L (98-107); Glucose 113 mg/dL (70-100); Potassium 4.3 mmol/L (3.5-5.1); Sodium 142 mmol/L (136-145); Total Protein 6.1 g/dL (6.4-8.2)
== END 2018-12-25 02:38 ==
PROVIDERS: PCP Family Medicine; Visit Provider Nurse Practitioner Family
DX: C34.91 Malignant neoplasm of unspecified part of right bronchus or lung (principal)
CPT/HCPCS: 36415; 80053; 85025

== ENCOUNTER 2019-01-01 09:09 | Outpatient (CLI) | payer OTHER, SELFPAY ==
[2019-01-01 09:29] LABS: Abs Immature Grans 0.01 k/cumm (0.0-0.09); Absolute Lymphocyte Count 0.42 k/cumm (1.2-3.4); HGB 12.7 g/dL (13.5-17.5); Mean Corp. HGB Concentration 33.4 g/dL (32.0-36.0); Mean Corpuscular Hemoglobin 31.3 pg (27.0-33.0); Mean Corpuscular Volume 93.6 fL (80-95); Mean Platelet Volume 8.5 fL (8.0-11.0); Platelet Count 190 x1000/uL (130-400); RBC 4.06 m/cumm (4.50-6.00); RBC Distribution Width 14.2 % (11.8-14.1)
[2019-01-01 09:48] LABS: ALT 67 U/L (12-78); AST 35 U/L (15-37); Albumin 3.2 g/dL (3.4-5.0); Alkaline Phosphatase 106 U/L (46-116); BUN 19 mg/dL (7-18); Bilirubin, Total 0.3 mg/dL (0.2-1.0); CREATININE 0.82 mg/dL (0.70-1.30); Calcium 8.8 mg/dL (8.5-10.1); Chloride 108 mmol/L (98-107); Glucose 129 mg/dL (70-100); Potassium 4.4 mmol/L (3.5-5.1); Sodium 144 mmol/L (136-145); Total Protein 6.2 g/dL (6.4-8.2)
[2019-01-01 09:49] LABS: Absolute Basophil Count 0.02 k/cumm (0.0-0.2); Absolute Eosinophil Count 0.02 k/cumm (0.0-0.7); Absolute Monocyte Count 0.19 k/cumm (0.11-0.7); Absolute Neutrophil Count 1.25 k/cumm (1.2-6.7); White Blood Cell Count 1.89 k/cumm (4.4-10.8)
[2019-01-01 09:50] LABS: Anisocytosis 2+; Diff Comment Manual Differential
== END 2019-01-01 09:29 ==
PROVIDERS: PCP Family Medicine; Visit Provider Nurse Practitioner Family
DX: C34.91 Malignant neoplasm of unspecified part of right bronchus or lung (principal)
CPT/HCPCS: 36415; 80053; 85025

== ENCOUNTER 2019-01-08 02:25 | Outpatient (CLI) | payer OTHER, SELFPAY ==
[2019-01-08 11:48] LABS: Absolute Basophil Count 0.02 k/cumm (0.0-0.2); Absolute Eosinophil Count 0.04 k/cumm (0.0-0.7); Absolute Lymphocyte Count 0.54 k/cumm (1.2-3.4); Absolute Monocyte Count 0.35 k/cumm (0.11-0.7); Absolute Neutrophil Count 1.27 k/cumm (1.2-6.7); Basophils % 0.9; Eosinophils % 1.8; HCT 36.4 % (40.0-50.0); HGB 12.1 g/dL (13.5-17.5); Lymphocytes % 24.3; Mean Corp. HGB Concentration 33.2 g/dL (32.0-36.0); Mean Corpuscular Hemoglobin 31.5 pg (27.0-33.0); Mean Corpuscular Volume 94.8 fL (80-95); Mean Platelet Volume 8.7 fL (8.0-11.0); Monocytes % 15.8; Neutrophils % 57.2; Platelet Count 142 x1000/uL (130-400); RBC 3.84 m/cumm (4.50-6.00); RBC Distribution Width 15.2 % (11.8-14.1); White Blood Cell Count 2.22 k/cumm (4.4-10.8)
[2019-01-08 11:58] LABS: ALT 55 U/L (12-78); AST 30 U/L (15-37); Alkaline Phosphatase 96 U/L (46-116); Anion Gap 7.1 mmol/L (3-11); BUN 24 mg/dL (7-18); Bilirubin, Total 0.3 mg/dL (0.2-1.0); CO2 27.9 mmol/L (21.0-32.0); CREATININE 0.78 mg/dL (0.70-1.30); Calcium 8.7 mg/dL (8.5-10.1); Chloride 110 mmol/L (98-107); Glucose 92 mg/dL (70-100); Potassium 4.3 mmol/L (3.5-5.1); Sodium 145 mmol/L (136-145); Total Protein 5.9 g/dL (6.4-8.2)
[2019-01-08 12:17] LABS: Diff Comment Diff Reviewed; RBC Morphology Normal
== END 2019-01-08 02:45 ==
PROVIDERS: PCP Family Medicine; Visit Provider Nurse Practitioner Family
DX: C34.91 Malignant neoplasm of unspecified part of right bronchus or lung (principal)
CPT/HCPCS: 36415; 80053; 85025

== ENCOUNTER 2019-09-01 09:53 | Emergency (ER) | payer OTHER, SELFPAY ==
[2019-09-01 09:56] VITALS: BP 149/89; PULSE 109; TEMP 37.1; O2SAT 94
--- NOTE | 2019-09-01 10:43 | W.ED.GENAD ---
Discharge Plan Disposition Patient Disposition: HOME Condition: Stable Discharge Details Chief Complaint: Cellulitis Clinical Impression: Cellulitis of leg, right Primary Care Provider: Joe Quiñones ED Provider: Sly Sears Home Meds and New Rx's Prescriptions: New cephalexin [Keflex] 500 mg capsule 500 mg PO QID Qty: 39 RF: 0 doxycycline hyclate 100 mg tablet 100 mg PO BID Qty: 19 RF: 0 Continued Flovent HFA 120 PUFF HFA aerosol inhaler 2 puff Inhalation BID Qty: 1 RF: 0 ipratropium-albuterol 3 ML solution for nebulization 3 ml UPD QID PRN PRN (Reason: Shortness Of Breath) Qty: 60 RF: 0 multivitamin [Once Daily] 1 EACH tablet 1 tab PO DAILY RF: 0 tamsulosin 0.4 MG capsule 0.4 mg PO DAILY RF: 0 Serevent Diskus 1 EACH blister with device 1 puff Inhalation BID RF: 0 albuterol sulfate [ProAir HFA] 200 PUFF/INH HFA aerosol inhaler 2 puff Inhalation PRN PRNRF: 0 Fish Oil 1 EACH capsule 1 cap PO DAILY RF: 0 benzonatate 100 mg Capsule 100 mg PO TID PRNQty: 15 RF: 0 lidocaine [Lidoderm] 5 % Adhesive Patch,Medicated 2 patch topical Q24H Qty: 28 RF: 0 aspirin 81 mg Tablet,Chewable 81 mg PO DAILY Qty: 30 RF: 0 Discharge Instructions Instructions: Cellulitis (ED) Additional Instructions: Please take the full course of antibiotic as prescribed. Please contact your primary care physician to arrange follow-up. Return to the ER immediately for any worsening or new concerning symptoms. Referrals: Joe Quiñones [Primary Care Provider] - Medical Decision Making 78-year-old male with lung cancer here with cellulitis of right knee. No palpable abscess. Afebrile and with no systemic symptoms. Plan to trial course of oral antibiotics. I have initiated treatment with doxycycline and Keflex. Strict instructions to return for any worsening or new concerning symptoms and plan for close outpatient follow-up. Discharge instructions were provided to the patient and who verbalized understanding. HPI General Mode of arrival: ambulatory. Date/Time Provider Initiated Documentation: 09/01/19 09:59. Limitations to Documentation: no limitations. Information obtained by: patient and family. HPI Narrative: 78-year-old male with history of lung cancer, COPD, here with inflammation of skin over his right knee. Patient notes about 3 days ago he picked a pimple that was on his right knee. Over the past 3 days areas become more red and painful. He also notes a lesion posterior right knee. No associated fever or chills. Patient notes about 2 weeks ago he had a rash that was lower on his leg that required prednisone and antibiotic to treat and did resolve. Related Data Home Medications Medication Instructions Recorded Confirmed Flovent HFA 2 puff INHALATION BID #1 inh 10/15/14 09/01/19 ipratropium-albuterol 3 ml UPD QID PRN PRN #60 vial 10/15/14 09/01/19 Fish Oil 1 cap PO DAILY 11/18/17 09/01/19 Serevent Diskus 1 puff INHALATION BID 11/18/17 09/01/19 albuterol sulfate [ProAir HFA] 2 puff INHALATION PRN PRN 11/18/17 09/01/19 multivitamin [Once Daily] 1 tab PO DAILY 11/18/17 09/01/19 tamsulosin 0.4 mg PO DAILY 11/18/17 09/01/19 aspirin 81 mg PO DAILY #30 tab 09/20/18 09/01/19 benzonatate 100 mg PO TID PRN #15 cap 09/20/18 09/01/19 lidocaine [Lidoderm] 2 patch TOPICAL Q24H #28 ea 09/20/18 09/01/19 cephalexin [Keflex] 500 mg PO QID #39 cap 09/01/19 doxycycline hyclate 100 mg PO BID #19 tab 09/01/19 Previous Rx's Medication Instructions Recorded Flovent HFA 2 puff INHALATION BID #1 inh 10/15/14 ipratropium-albuterol 3 ml UPD QID PRN PRN #60 vial 10/15/14 aspirin 81 mg PO DAILY #30 tab 09/20/18 benzonatate 100 mg PO TID PRN #15 cap 09/20/18 lidocaine [Lidoderm] 2 patch TOPICAL Q24H #28 ea 09/20/18 cephalexin [Keflex] 500 mg PO QID #39 cap 09/01/19 doxycycline hyclate 100 mg PO BID #19 tab 09/01/19 Allergies Allergy/AdvReac Type Severity Reaction Status Date / Time No Known Allergies Allergy Unverified 09/01/19 09:59 General Stated Complaint: Cellulitis CEE: 3 Review of Systems All systems reviewed & are unremarkable except as noted in HPI and below Constitutional Constitutional: Denies body ache(s) and Denies fever(s) Integumentary/Breasts Skin/Breast: Reports rash [facility] Medical History BPH (benign prostatic hyperplasia) (Chronic) COPD (chronic obstructive pulmonary disease) (Chronic) CVA (cerebral vascular accident) (Chronic) Edema of left lower extremity (Acute) Essential tremor (Acute) Former smoker (Acute) GERD (gastroesophageal reflux disease) (Chronic) Lung mass (Acute) Social History Smoking/Tobacco Use Status: Former Tobacco Use Alcohol Intake: never Drug use: Never Substance use type: does not use Household members: spouse Housing: house Number of Children: 2 current occupation: Retired. [employer]. Do you feel safe at home: Yes Do you feel safe in your relationship?: Yes Exam Const General: cooperative and no acute distress Nutritional Appearance: thin HENMT Mouth: moist mucous membranes Eyes Conjunctivae: normal conjunctivae Resp Auscultation: clear to auscultation bilaterally, no rales, no rhonchi and no wheezes Cardio Jugular venous pressure: no JVD Rate: regular rate and not tachycardic Rhythm: regular rhythm Skin Rashes: rashes noted Other: Anterior medial right knee circular erythema and warmth surrounding central ruptured abscess with no drainage, no fluctuance; posterior distal lateral right upper leg with small circular quarter sized erythema with central healed ulcer, no fluctuance Neuro General: alert, awake and tone normal Extrem General: no calf tenderness Right lower extremity: full ROM (knee) and knee (medial erythema and warmth surrounding central ruptured abscess); no edema Psych Appearance: grossly normal Course Vital Signs Vital signs: Vital Signs Temperature 37.1 C 09/01/19 09:56 Pulse 109 H 09/01/19 09:56 Blood Pressure 149/89 H 09/01/19 09:56 Pulse Oximetry 94 L 09/01/19 09:56 Temperature 37.1 C 09/01/19 09:56 Temperature Source Temporal Artery Scan 09/01/19 09:56 Pulse 109 H 09/01/19 09:56 Respiratory Effort Non-Labored 09/01/19 09:58 Blood Pressure 149/89 H 09/01/19 09:56 Blood Pressure Position Sitting 09/01/19 09:56 Pulse Oximetry 94 L 09/01/19 09:56 Oxygen Delivery Method Room Air 09/01/19 09:56 Oxygen Flow Rate 0 09/01/19 09:56 Pain Level 8 09/01/19 09:56
[2019-09-01] MEDS: Doxycycline Hyclate 100 MG CAP PO (10:49)
[2019-09-01] MEDS: Cephalexin 500 MG CAP PO (10:49)
[2019-09-01 10:54] VITALS: BP 149/89; PULSE 109; TEMP 37.1; O2SAT 94
== END 2019-09-01 10:53 | disposition home or self-care (01) ==
PROVIDERS: Emergency Provider Student in an Organized Health Care Education/Training Program; PCP Family Medicine
DX: L03.116 Cellulitis of left lower limb (principal); J44.9 Chronic obstructive pulmonary disease, unspecified; Z87.891 Personal history of nicotine dependence
CPT/HCPCS: 99283

== ENCOUNTER 2019-09-04 08:13 | Inpatient (IN) | payer OTHER, SELFPAY ==
[2019-09-04 08:17] VITALS: BP 121/68; PULSE 110; RESP 16; TEMP 36.9; O2SAT 96
--- NOTE | 2019-09-04 08:30 | DI.RAD_ITS ---
EXAM: XR KNEE RT 3V AP,LAT,JERRY INDICATION: prepatellar swelling, cellulitis. COMPARISON: No exams were available for comparison TECHNIQUE: 2D digital imaging was performed. FINDINGS: No acute fracture or dislocation is present. No joint effusion is present. There is swelling of the prepatellar soft tissues. Vascular calcifications are present. IMPRESSION: 1. No acute fracture or dislocation. 2. Swelling in the prepatellar soft tissues.
--- NOTE | 2019-09-04 08:33 | ED.GENADUL_ITS ---
Discharge Plan Disposition Patient Disposition: [facility] INPATIENT Condition: Stable Discharge Details Chief Complaint: Cellulitis Clinical Impression: Bursitis, prepatellar, right Primary Care Provider: Joe Quiñones ED Provider: Willie Powers Home Meds and New Rx's Prescriptions: No Action Flovent HFA 120 PUFF HFA aerosol inhaler 2 puff Inhalation BID Qty: 1 RF: 0 ipratropium-albuterol 3 ML solution for nebulization 3 ml UPD QID PRN PRN (Reason: Shortness Of Breath) Qty: 60 RF: 0 multivitamin [Once Daily] 1 EACH tablet 1 tab PO DAILY RF: 0 tamsulosin 0.4 MG capsule 0.4 mg PO DAILY RF: 0 Serevent Diskus 1 EACH blister with device 1 puff Inhalation BID RF: 0 albuterol sulfate [ProAir HFA] 200 PUFF/INH HFA aerosol inhaler 2 puff Inhalation PRN PRNRF: 0 Fish Oil 1 EACH capsule 1 cap PO DAILY RF: 0 cephalexin [Keflex] 500 mg capsule 500 mg PO QID Qty: 39 RF: 0 doxycycline hyclate 100 mg tablet 100 mg PO BID Qty: 19 RF: 0 benzonatate 100 mg Capsule 100 mg PO TID PRNQty: 15 RF: 0 lidocaine [Lidoderm] 5 % Adhesive Patch,Medicated 2 patch topical Q24H Qty: 28 RF: 0 aspirin 81 mg Tablet,Chewable 81 mg PO DAILY Qty: 30 RF: 0 Medical Decision Making 78-year-old male presents with approximately day 5 of right knee prepatellar bursitis/cellulitis and swelling. He was seen in the emergency department S[place] , placed on doxycycline and Keflex. No other work-up at that time. He is had progressive pain and swelling over the past 30 hours with erythema extending to the right ankle. No pain with movement of the joint. His vital signs are unremarkable, clinically he clearly is worsening despite dual antibiotic therapy for 4 days. IV placed, labs including CRP and blood culture obtained. Patient referred for x-ray no fracture or bony abnormality, see formal report. I consented the patient for bursa I&D with needle aspiration. He was prepped and draped in standard sterile fashion with chlorhexidine, anesthetized with 1% lidocaine, 0.5 cc of bloody material were aspirated without significant purulence. This is sent for culture. Patient placed on vancomycin. He was seen in consultation by Dr. Ayala of orthopedics. We will admit to the hospitalist service for ongoing management and treatment of right prepatellar bursitis/cellulitis. HPI General Mode of arrival: ambulatory . Date/Time Provider Initiated Documentation: 09/04/19 08:16 . Limitations to Documentation: no limitations . Information obtained by: patient and family . History of Present Illness 78 year old M presents to the emergency department with the chief complaint of Right knee progressive swelling and erythema, on antibiotics, day 4, described as moderate, Quality is described as constant, and is localized to the right and lower extremity. Patient reports no radiation. Patient started experiencing this day(s) and it has been constant. No relieving factors improve symptom(s), No exacerbating factors reported . Patient notes other (No joint pain); denies fever/chills. Patient did receive the following treatments prior to arrival, other (Keflex and doxycycline) Related Data Home Medications Medication Instructions Recorded Confirmed Flovent HFA 2 puff INHALATION BID #1 inh 10/15/14 09/04/19 ipratropium-albuterol 3 ml UPD QID PRN PRN #60 vial 10/15/14 09/04/19 Fish Oil 1 cap PO DAILY 11/18/17 09/04/19 Serevent Diskus 1 puff INHALATION BID 11/18/17 09/04/19 albuterol sulfate [ProAir HFA] 2 puff INHALATION PRN PRN 11/18/17 09/04/19 multivitamin [Once Daily] 1 tab PO DAILY 11/18/17 09/04/19 tamsulosin 0.4 mg PO DAILY 11/18/17 09/04/19 aspirin 81 mg PO DAILY #30 tab 09/20/18 09/04/19 benzonatate 100 mg PO TID PRN #15 cap 09/20/18 09/04/19 lidocaine [Lidoderm] 2 patch TOPICAL Q24H #28 ea 09/20/18 09/04/19 cephalexin [Keflex] 500 mg PO QID #39 cap 09/01/19 09/04/19 doxycycline hyclate 100 mg PO BID #19 tab 09/01/19 09/04/19 Previous Rx's Medication Instructions Recorded Flovent HFA 2 puff INHALATION BID #1 inh 10/15/14 ipratropium-albuterol 3 ml UPD QID PRN PRN #60 vial 10/15/14 aspirin 81 mg PO DAILY #30 tab 09/20/18 benzonatate 100 mg PO TID PRN #15 cap 09/20/18 lidocaine [Lidoderm] 2 patch TOPICAL Q24H #28 ea 09/20/18 cephalexin [Keflex] 500 mg PO QID #39 cap 09/01/19 doxycycline hyclate 100 mg PO BID #19 tab 09/01/19 Allergies Allergy/AdvReac Type Severity Reaction Status Date / Time No Known Allergies Allergy Unverified 09/04/19 08:21 General Stated Complaint: Cellulitis CEE: 3 Review of Systems Narrative: No vomiting, no change to bowel or bladder habits, denies a fever. 6 systems reviewed and otherwise negative [facility] Medical History BPH (benign prostatic hyperplasia) (Chronic) COPD (chronic obstructive pulmonary disease) (Chronic) CVA (cerebral vascular accident) (Chronic) Edema of left lower extremity (Acute) Essential tremor (Acute) Former smoker (Acute) GERD (gastroesophageal reflux disease) (Chronic) Lung mass (Acute) Social History Smoking/Tobacco Use Status: Former Tobacco Use Alcohol Intake: never Drug use: Never Substance use type: does not use Household members: spouse Housing: house Number of Children: 2 current occupation: Retired. [employer]. Do you feel safe at home: Yes Do you feel safe in your relationship?: Yes Exam Narrative Exam Narrative: GEN: awake, alert, oriented 3. Pleasant, well groomed, interact raul. HEAD: Normocephalic, atraumatic ENT: Mucous membranes moist, oropharynx unremarkable, External ear exam unremarkable EYES: PERRL, EOMI NECK: Full ROM, no VALERIA, no menigismus CHEST/RESP: Nontender, clear to auscultation bilateral, no wheeze/rhonchi/rales CARDIOVASCULAR: RRR, no murmur, rub juancho. 2+ Rad pulse bilateral ABDOMEN: Soft, nontender, no mass. +Bowel sounds EXT: Full ROM, no pain with movement of the right knee. There is right prepatellar swelling and tenderness with overlying erythema that extends anteriorly to the right ankle. The right posterior lateral distal thigh has a well-circumscribed, raised and crusted lesion with mild surrounding erythema. It measures approximately 3 cm in diameter. Neuro: Grossly normal neurologic exam, conversant, interactive. Psych: Speech fluent, thoughts congruent, affect normal Course Vital Signs Vital signs: Vital Signs Temperature 36.9 C 09/04/19 08:17 Pulse 110 H 09/04/19 08:17 Respiratory Rate 16 09/04/19 08:17 Blood Pressure 121/68 09/04/19 08:17 Pulse Oximetry 96 09/04/19 08:17 Temperature 36.9 C 09/04/19 08:17 Temperature Source Skin 09/04/19 08:17 Pulse 110 H 09/04/19 08:17 Respiratory Rate 16 09/04/19 08:17 Respiratory Effort Non-Labored 09/04/19 08:17 Blood Pressure 121/68 09/04/19 08:17 Blood Pressure Position Supine 09/04/19 08:17 Pulse Oximetry 96 09/04/19 08:17 Oxygen Delivery Method Room Air 09/04/19 08:17 Oxygen Flow Rate 0 09/04/19 08:17 Pain Level 8 09/04/19 08:17 Procedures Joint Aspiration/Injection Joint Asp./Inject. 1: Time Out Performed: Yes Side of body: right Joint Aspirated: knee Skin Prep: Chlorhexidene Local Anesthetic: Lidocaine 1% Amount of anesthesia used (mL): 1 Needle Size Used: 18G Fluid Obtained: bloody
[2019-09-04 09:14] LABS: Abs Immature Grans 0.01 k/cumm (0.0-0.09); Absolute Basophil Count 0.04 k/cumm (0.0-0.2); Absolute Eosinophil Count 0.28 k/cumm (0.0-0.7); Absolute Lymphocyte Count 0.58 k/cumm (1.2-3.4); Absolute Monocyte Count 0.43 k/cumm (0.11-0.7); Absolute Neutrophil Count 4.46 k/cumm (1.2-6.7); Basophils % 0.7; Eosinophils % 4.8; HCT 37.8 % (40.0-50.0); HGB 12.4 g/dL (13.5-17.5); Immature Grans % 0.2 %; Mean Corp. HGB Concentration 32.8 g/dL (32.0-36.0); Mean Corpuscular Hemoglobin 31.8 pg (27.0-33.0); Mean Corpuscular Volume 96.9 fL (80-95); Mean Platelet Volume 8.8 fL (8.0-11.0); Monocytes % 7.4; Neutrophils % 76.9; Platelet Count 236 x1000/uL (130-400); RBC Distribution Width 13.6 % (11.8-14.1)
[2019-09-04] MEDS: Normal Saline 1,000 ML 125 ML IV ×2 (09:20→18:15)
[2019-09-04 09:23] LABS: ALT 25 U/L (16-63); AST 26 U/L (15-37); Albumin 2.5 g/dL (3.4-5.0); Alkaline Phosphatase 88 U/L (46-116); Anion Gap 8.4 mmol/L (3-11); BUN 21 mg/dL (7-18); Bilirubin, Total 0.3 mg/dL (0.2-1.0); CO2 27.6 mmol/L (21.0-32.0); CREATININE 0.84 mg/dL (0.70-1.30); Calcium 8.8 mg/dL (8.5-10.1); Chloride 109 mmol/L (98-107); Glucose 122 mg/dL (74-106); Potassium 4.2 mmol/L (3.5-5.1); Sodium 145 mmol/L (136-145)
[2019-09-04] MEDS: Normal Saline Flush 10 ML SYR IVP ×2 (09:32→22:06)
[2019-09-04] MEDS: VANCOMYCIN 1,000 MG in Normal Saline 250 ML 166.6666 MG IVPB (10:38)
[2019-09-04 11:38] VITALS: BP 148/85; PULSE 85; RESP 18; TEMP 37.1; O2SAT 95
--- NOTE | 2019-09-04 11:51 | OCONE_ITS ---
Date of service: 09/04/19 Time of Service: 09:51 History of Present Illness History of Present Illness Chief Complaint: Right Knee Infection Narrative: Radha is a 78-year-old male who presents to the emergency department for the second time with right knee pain, swelling, and redness. This all started a few weeks ago in general. The history is vague but he supposedly had a rash which is presumed to be cellulitis and he was given prednisone and antibiotic. This cleared up. However, about 5 or so days ago he picked a pimple which was over the anterior aspect of the right knee. Since that time he has had increasing redness, warmth, swelling, and pain to the right knee. Incidentally, he also notes a similar type lesion which she picked over the posterior aspect of the distal right thigh. This 1 has not been as painful nor swollen. He was seen in the emergency department 3 days prior on the and started on Keflex and doxycycline. Since that time things have only worsened. He denies any fevers or chills but does feel unwell. He is able to ambulate but has pain with attempted flexion of the right knee. He denies numbness or tingling. He does have a known diagnosis of lung carcinoma. Per the family, he did undergo some treatment but aborted further treatments and currently is on no medications for this. He has severe COPD. His works in the hospital and his daughter also works in medical establishments and so there is a concern for MRSA. Consults Consult date: 09/04/19 Requesting physician: Willie Powers Consult Reason Right knee prepatellar bursitis Assessment and Plan Assessment and plan (1) Bursitis, prepatellar, right: Status: Acute Assessment and plan: Radha is a 78-year-old with multiple medical conditions including untreated lung carcinoma who presents to the emergency department a second time for worsening prepatellar bursitis of the right knee. This does appear to be a prepatellar bursitis and not involving the joint. He has failed home outpatient antibiotics. It is very likely that this is a MRSA infection and will need IV antibiotics. I am concerned about the other boil that he has in the posterior aspect of the right thigh. This could be an indication of in general a poor immune system compromised by ongoing cancer. He is not a very good surgical candidate and I worry that proceeding with surgery may create a wound which does not want to heal. Nevertheless, it is likely necessary. As a starting point, I recommend trying to aspirate any fluid out of the bursa to send off to the lab for further microbiology testing and sensitivities. I would treat him empirically for MRSA as this is likely the causative organism. We should start vancomycin, aiming for trough of 15-20 with a loading dose. I recommend admission to the medicine service due to his multiple medical comorbidities. If he does not show improvements in 24 hours then I would recommend open irrigation and debridement. I would prefer that he be n.p.o. after midnight tonight and we will reevaluate later tomorrow morning and if necessary, go to the operating tomorrow evening/afternoon. We could consider a spinal anesthetic for anesthesia if necessary given his poor lung condition. I will go ahead and consult anesthesia to make them aware as well. I discussed the case with Radha and his family who are present. They are all on board with the current treatment regimen and we will reevaluate the success of antibiotics intravenously tomorrow. (2) Cellulitis of leg, right: Status: Acute Review of Systems All systems reviewed & are unremarkable except as noted in HPI and below PFSH Medical History BPH (benign prostatic hyperplasia) (Chronic) COPD (chronic obstructive pulmonary disease) (Chronic) CVA (cerebral vascular accident) (Chronic) Edema of left lower extremity (Acute) Essential tremor (Acute) Former smoker (Acute) GERD (gastroesophageal reflux disease) (Chronic) Lung mass (Acute) Social History Smoking/Tobacco Use Status: Former Tobacco Use Alcohol Intake: never Drug use: Never Substance use type: does not use Household members: spouse Housing: house Number of Children: 2 current occupation: Retired. [employer]. Do you feel safe at home: Yes Do you feel safe in your relationship?: Yes Exam Narrative Exam Narrative: Radha is laying supine in the hospital stretcher. He appears almost cachectic. There is notable supraclavicular fossa atrophy with barrel chesting. He does seem to be working to breathe but is in no distress. He is able to talk in complete sentences but does appear winded soon after. He is in no acute distress. He is alert and oriented x3. Evaluation of the right leg shows an obvious prepatellar fluid collection. The skin is thin in this area and there is a eschar at the epicenter. There is not able erythema extending out from around the prepatellar space extending down distally the leg but focused primarily over the anterior knee. There is no medial lateral joint line tenderness. No notable effusion. Gentle passive range of motion does not cause pain but any attempted flexion past about 50 or 60 degrees does cause pain anteriorly. There is some fluctuance over the anterior knee. There is also an area of eschar over the posterior aspect of the lateral, distal thigh. This thickened eschar seems to be resolving boil. There is no surrounding erythema of this area but there is a dense area associated with the skin and soft tissue. No palpable lymphadenopathy. Sensation intact light touch over the deep surface peroneal nerve and tibial nerves. The foot is warm and well-perfused. Results Last Vital Signs Temp 37.1 C 09/04/19 11:38 Pulse 85 09/04/19 11:38 Resp 18 09/04/19 11:38 BP 148/85 H 09/04/19 11:38 Pulse Ox 95 09/04/19 11:38 Labs Result diagrams: 09/04/19 08:55 09/04/19 08:55 Labs: Laboratory Results - last 24 hr 09/04/19 09/04/19 08:55 08:55 WBC 5.80 RBC 3.90 L Hgb 12.4 L Hct 37.8 L MCV 96.9 H MCH 31.8 MCHC 32.8 RDW 13.6 Plt Count 236 MPV 8.8 Immature Gran % 0.2 Neutrophils % 76.9 Lymphocytes % 10.0 Monocytes % 7.4 Eosinophils % 4.8 Basophils % 0.7 Absolute Neutrophils 4.46 Absolute Lymphocytes 0.58 L Absolute Monocytes 0.43 Absolute Eosinophils 0.28 Absolute Basophils 0.04 Sodium 145 Potassium 4.2 Chloride 109 H Carbon Dioxide 27.6 Anion Gap 8.4 BUN 21 H Creatinine 0.84 Estimated GFR/1.73 m2 >= 60.00 Glucose 122 H Calcium 8.8 Total Bilirubin 0.3 AST 26 ALT 25 Alkaline Phosphatase 88 C-Reactive Protein 10.30 H Total Protein 6.0 L Albumin 2.5 L
[2019-09-04] MEDS: Enoxaparin 40 MG/0.4 ML SYR SC (13:35)
[2019-09-04 13:39] VITALS: BP 155/82; PULSE 80; RESP 20; TEMP 36.8; O2SAT 96
--- NOTE | 2019-09-04 14:15 | IN_ITS ---
Date of service: 09/04/19 Time of Service: 13:38 PT Notes Visit Reasons: PREPATELLAR CELLULITIS/SEPTIC BURSITIS RLE Physical Therapy Inpatient Initial Evaluation Date: 09/04/2019 Referring Doctor: Blanche Jameson MD PT Orders: PT CONSULT: Limited ability Precautions: Fall. Standard. Activity as tolerated. Patient Profile/Admitting Diagnosis: Patient is a 78-year-old male who presented to the ED twice once on 09/01/2019 and today with chief complaints of progressive right knee swelling and redness. Patient is diagnosed with right knee prepatellar bursitis versus cellulitis and is currently on antibiotics. Referral for physical therapy was made in order to assess mobility level in anticipation of discharged home when medically cleared to do so. PMHX: Medical History BPH (benign prostatic hyperplasia) (Chronic) COPD (chronic obstructive pulmonary disease) (Chronic) CVA (cerebral vascular accident) (Chronic) Edema of left lower extremity (Acute) Essential tremor (Acute) Former smoker (Acute) GERD (gastroesophageal reflux disease) (Chronic) Lung mass (Acute) Social History/Home Situation: Patient lives with in a split-level home with 4 steps to enter that leads to the basement with a rail on the right side going down. There is another set of 7 steps to the main living area of the house. Patient is independent with all aspects of ADLs without the need for an assistive ambulatory device nor adaptive equipment. Patient has sons and daughters who live close by who provide assistance as needed. 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 Equipment Owned/DME: None Subjective: Patient reports increasing discomfort and redness on the right knee that started 5 days ago. Pain is constant both at rest and with movement. He denies headache, chest pain, and dizziness throughout PT session. Objective: General Observation: Patient is seen resting on bedside chair. Erythema is noted from proximal thigh to the knee and down to the distal leg on the right side anteriorly. Skin lesion seen on the posterior lateral aspect of the distal thigh on the right side. Wound dressing covers an open area on the anterior knee. Mental Status: Alert and oriented x4 Pain: 5/10 at rest and with movement ROM: Right Upper Extremity: Shoulder Flexion allows only 30 to 40 degrees. Shoulder abduction 30 to 40 degrees. Elbow flexion WFL. Wrist flexion WFL. Opening and closing of hand WFL. Left Upper Extremity: Shoulder Flexion allows only 30 to 40 degrees. Shoulder abduction 30 to 40 degrees. Elbow flexion WFL. Wrist flexion WFL. Opening and c losing of hand WFL. Right Lower Extremity: Hip flexion WFL. Hip abduction WFL. Knee flexion WFL. Knee extension -20 degrees. Ankle dorsiflexion WFL. Ankle plantarflexion WFL. Left Lower Extremity: Hip flexion WFL. Hip abduction WFL. Knee flexion WFL. Ankle dorsiflexion WFL. Ankle plantarflexion WFL. Strength: Right Upper Extremity: Shoulder flexors 3-/5. Shoulder abductors 3-/5. Elbow flexors 3+/5. Elbow extensors 3+/5. Railroad Track Inspector strong. Left Upper Extremity: Shoulder flexors 3-/5. Shoulder abductors 3-/5. Elbow flexors 3+/5. Elbow extensors 3+/5. Railroad Track Inspector strong. Right Lower Extremity: Hip flexors 5/5. Hip abductors 4/5. Knee flexors 4/5. Knee extensors 3-/5. Ankle dorsiflexors 5/5. Ankle plantarflexors 5/5. Left Lower Extremity:Hip flexors 5/5. Hip abductors 5/5. Knee flexors 5/5. Knee extensors 5/5. Ankle dorsiflexors 5/5. Ankle plantarflexors 5/5. Sensation: Intact as to pain and pressure on bilateral lower extremities. Bed Mobility/Transfers: Sit to stand SBA Stand to sit SBA Bed to chair SBA Chair to bed SBA Gait: Patient tolerated level surface ambulation of 120 feet + 50 feet using the front wheeled walker with CGA of PT. Reciprocal step through gait pattern observed. No LOB. No increase in pain report in the right knee. Denies headache, chest pain, and dizziness throughout gait activity. Balance: Static Sitting: Normal Dynamic Sitting: Normal Static Standing: Fair Dynamic Standing: Fair Special Tests: Mobility Limitations Standardized Measure [facility] AM-PAC 6 clicks Basic Mobility Inpatient Short Form: Raw Score: 23 CMS Score: 11% deficit Informed Consent/Education: Patient instructed in purpose of PT consult and plan of care. Assessment: Patient is complaining of 5/10 pain on the right knee but has not limited his ability to perform level surface ambulation with a front wheeled walker. Will assess safety of progressing patient to ambulation activity without the use of an assistive device tomorrow. Patient is a 78-year-old male who presented to the ED twice once on 09/01/2019 and today with chief complaints of progressive right knee swelling and redness. Patient is diagnosed with right knee prepatellar bursitis versus cellulitis and is currently on antibiotics. Referral for physical therapy was made in order to assess mobility level in anticipation of discharge home when medically cleared to do so. Patient presents with clinical signs and symptoms consistent with current/admitting diagnoses that have resulted to mobility limitations, gait instability, generalized weakness, and impairment of motor control as demonstrated by the following impairment level findings: 1. Decreased strength to right knee major muscle groups 2. Impaired standing balance 3. Impaired activity tolerance 4. Limitation of joint range of motion right knee Impairments are contributing to the following functional limitations: 1. Inability to safely ambulate without assistive device and physical assistance 2. Increase completion time for mobility ADL performance 3. Increased fall risk 4. Inability to negotiate steps alone safely Patient is assessed as a [id number] moderate complexity based on the following: History: 78-year-old male with past medical history as listed above, impairment level findings, functional deficits, and [facility] deficit score of 11% Examination: Demonstrable impairment in strength, balance, and range of motion with underlying impairments and functional limitations as documented above Presentation: Evolving Decision Makin moderate complexity Goals: Goals X1 week 1. Supine-Sit independent 2. Sit-Supine independent 3. Sit-Stand independent 4. Stand-Sit independent 5. Bed-Chair independent 6. Chair-Bed independent 7. Independent gait on level surface without d an assistiv device for at least 300 feet without report of pain nor dyspnea 8. Independent stair negotiation while holding onto bilateral rails for at least 10 steps without report of pain nor dyspnea 9. Independent with home exercise program 10. Good static and dynamic standing balance/tolerance Plan of Care/Treatment Plan: 1-2x/day, 7 days/week x 1 week. Plan of care has been reviewed with the VISUAL STYLIST providing the service under Physical Therapy direction. Initiate Physical Therapy intervention for strengthening, bed mobility, transfers, gait, stairs, balance training, use of assistive device. DISCHARGE RECOMMENDATIONS: Patient will benefit from home health PT services in order to progress mobility level using least restrictive assistive ambulatory device, assess home safety, identify additional equipment needs, and establish a functional maintenance program that will increase ability of patient to remain at home. TREATMENT CODE/TIME: 05356 x 24 minutes beginning at 13:38 PM. Thank you very much for this referral. Adelina Storey PT, DPT, CLT [facility] [place], [place]
[2019-09-04 15:56] VITALS: BP 142/77; PULSE 67; RESP 20; TEMP 36.9; O2SAT 94
--- NOTE | 2019-09-04 16:12 | W.PM.HP.N ---
Date of service: 09/04/19 Time of Service: 16:00 Assessment and Plan Assessment and plan (1) Bursitis, prepatellar, right: Status: Acute Assessment and plan: admitted to med/surg, will continue vancomycin, add zosyn, failed outpatient treatment with doxycycline and keflex 4 days. elevate extremity, cultures from I&D pending. add lactobacillus orthopedics following (2) GERD (gastroesophageal reflux disease): Status: Chronic Assessment and plan: will place on GI prophylaxis while hospitalized (3) COPD (chronic obstructive pulmonary disease): Status: Chronic Assessment and plan: stable and at baseline. no oxygen requirements. continue home inhalers (4) BPH (benign prostatic hyperplasia): Status: Chronic Assessment and plan: stable, continue tamsulosin, monitor for signs of urinary retention (5) DVT prophylaxis: Status: Acute Assessment and plan: enoxaparin daily (6) Discharge planning issues: Status: Acute Assessment and plan: anticipate discharge to home with no services once medically stable. PT consulted for discharge planning History of Present Illness History of Present Illness Chief Complaint: right lower extremity redness and swelling Narrative: This is a 78-year-old male presents with approximately day 5 of right knee prepatellar bursitis/cellulitis and swelling. He was seen in the emergency department Tuesday, placed on doxycycline and Keflex. No other work-up at that time. He is had progressive pain and swelling over the past 30 hours with erythema extending to the right ankle. No pain with movement of the joint. Review of Systems Constitutional Constitutional: Denies fever(s) Cardiovascular Cardiovascular: Reports dyspnea on exertion (chronic) Respiratory Respiratory: Denies change in phlegm color, Reports cough (chronic) and Reports dyspnea on exertion (chronic) Gastrointestinal Gastrointestinal: Denies abdominal pain Musculoskeletal Musculoskeletal: Reports joint swelling (right lower extremity edema), Denies limited range of motion, Denies numbness and Denies stiffness Integumentary/Breasts Skin/Breast: Reports rash (right knee extending distally to foot) Neurologic Neurologic: Denies numbness Hematologic/Lymphatic Hematologic/Lymphatic: Denies easy bruising [facility] Medical History BPH (benign prostatic hyperplasia) (Chronic) COPD (chronic obstructive pulmonary disease) (Chronic) CVA (cerebral vascular accident) (Chronic) Edema of left lower extremity (Acute) Essential tremor (Acute) Former smoker (Acute) GERD (gastroesophageal reflux disease) (Chronic) Lung mass (Acute) Social History Smoking/Tobacco Use Status: Former Tobacco Use Alcohol Intake: never Drug use: Never Substance use type: does not use Household members: spouse Housing: house Number of Children: 2 current occupation: Retired. [employer]. Do you feel safe at home: Yes Do you feel safe in your relationship?: Yes Meds Home Medications and Allergies Home Medications Medication Instructions Recorded Confirmed Type Flovent HFA 2 puff INHALATION BID #1 inh 10/15/14 09/04/19 Rx ipratropium-albuterol 3 ml UPD QID PRN PRN #60 vial 10/15/14 09/04/19 Rx Fish Oil 1 cap PO DAILY 11/18/17 09/04/19 History Serevent Diskus 1 puff INHALATION BID 11/18/17 09/04/19 History albuterol sulfate [ProAir HFA] 2 puff INHALATION PRN PRN 11/18/17 09/04/19 History multivitamin [Once Daily] 1 tab PO DAILY 11/18/17 09/04/19 History tamsulosin 0.4 mg PO DAILY 11/18/17 09/04/19 History aspirin 81 mg PO DAILY #30 tab 09/20/18 09/04/19 Rx benzonatate 100 mg PO TID PRN #15 cap 09/20/18 09/04/19 Rx lidocaine [Lidoderm] 2 patch TOPICAL Q24H #28 ea 09/20/18 09/04/19 Rx cephalexin [Keflex] 500 mg PO QID #39 cap 09/01/19 09/04/19 Rx doxycycline hyclate 100 mg PO BID #19 tab 09/01/19 09/04/19 Rx Allergies Allergy/AdvReac Type Severity Reaction Status Date / Time No Known Allergies Allergy Unverified 09/04/19 08:21 Exam Const General: cooperative, no acute distress, frail appearing and ill appearing (elderly male older than stated age) chronically Nutritional Appearance: cachectic [facility]ENKY Head: normocephalic and atraumatic Mouth: moist mucous membranes abnormal (slightly dry) Eyes Conjunctivae: conjunctival abnormality bilaterally conjunctival injection diffuse Sclera: scleral abnormality bilaterally scleral injection Resp Effort & Inspection: tachypneic Auscultation: diminished lung sounds bilaterally Cardio Rate: regular rate Rhythm: regular rhythm GI Inspection: normal to inspection Palpation: soft Auscultation: normal bowel sounds Skin General skin exam: dry skin and other (skin with general cyanotic appearance, chronic appearing) Rashes: rashes noted (right lower extremity, dark over knee, extends distally to foot. ) Hair: brittle Nails: clubbing and discolored Neuro General: alert and oriented x3 Cranial Nerves: CN's II-XI intact bilaterally Extrem General: normal to inspection, full ROM and edema Laterality: right Results Labs Result diagrams: 09/04/19 08:55 09/04/19 08:55 Labs: Laboratory Results - last 24 hr 09/04/19 09/04/19 08:55 08:55 WBC 5.80 RBC 3.90 L Hgb 12.4 L Hct 37.8 L MCV 96.9 H MCH 31.8 MCHC 32.8 RDW 13.6 Plt Count 236 MPV 8.8 Immature Gran % 0.2 Neutrophils % 76.9 Lymphocytes % 10.0 Monocytes % 7.4 Eosinophils % 4.8 Basophils % 0.7 Absolute Neutrophils 4.46 Absolute Lymphocytes 0.58 L Absolute Monocytes 0.43 Absolute Eosinophils 0.28 Absolute Basophils 0.04 Sodium 145 Potassium 4.2 Chloride 109 H Carbon Dioxide 27.6 Anion Gap 8.4 BUN 21 H Creatinine 0.84 Estimated GFR/1.73 m2 >= 60.00 Glucose 122 H Calcium 8.8 Total Bilirubin 0.3 AST 26 ALT 25 Alkaline Phosphatase 88 C-Reactive Protein 10.30 H Total Protein 6.0 L Albumin 2.5 L Last Vital Signs Temp 36.9 C 09/04/19 15:56 Pulse 67 09/04/19 15:56 Resp 20 09/04/19 15:56 BP 142/77 H 09/04/19 15:56 Pulse Ox 94 L 09/04/19 15:56
[2019-09-04] MEDS: Albuterol 2.5 MG/3 ML INH SOLN VIAL UPD (16:41)
[2019-09-04] MEDS: Lidocaine 5% Patch 2 PATCH TP (18:12)
[2019-09-04] MEDS: PIPERACILLIN/TAZO 3.375 GM in Normal Saline 50 ML IVPB (18:15)
[2019-09-04] MEDS: Albuterol/Ipratropium 3 ML UPD VIAL UPD (18:24)
[2019-09-04 20:01] VITALS: BP 136/76; PULSE 73; RESP 19; TEMP 36.9; O2SAT 95
[2019-09-04] MEDS: guaiFENesin 600 MG TABCR PO (20:36)
[2019-09-04] MEDS: Lactobacillus Acidophilus CAP 1 CAP PO (20:36)
[2019-09-04 23:53] VITALS: BP 144/70; PULSE 74; RESP 20; TEMP 36.9; O2SAT 95
[2019-09-05] MEDS: PIPERACILLIN/TAZO 3.375 GM in Normal Saline 50 ML IVPB ×5 (00:18→23:54)
[2019-09-05 03:39] VITALS: BP 175/85; PULSE 84; RESP 18; TEMP 37.1; O2SAT 94
[2019-09-05] MEDS: Normal Saline Flush 10 ML SYR IVP ×2 (06:31→11:46)
[2019-09-05] MEDS: Lidocaine Patch Removal 1 EACH TP (06:51)
[2019-09-05 07:50] VITALS: BP 143/77; PULSE 74; RESP 19; TEMP 37.4; O2SAT 94
[2019-09-05] MEDS: Tamsulosin 0.4 MG CAPCR PO (07:57)
[2019-09-05 08:01] LABS: Abs Immature Grans 0.01 k/cumm (0.0-0.09); Absolute Basophil Count 0.04 k/cumm (0.0-0.2); Absolute Lymphocyte Count 0.61 k/cumm (1.2-3.4); Absolute Monocyte Count 0.49 k/cumm (0.11-0.7); Absolute Neutrophil Count 4.34 k/cumm (1.2-6.7); Basophils % 0.7; Eosinophils % 5.2; HGB 12.1 g/dL (13.5-17.5); Immature Grans % 0.2 %; Lymphocytes % 10.5; Mean Corp. HGB Concentration 32.7 g/dL (32.0-36.0); Mean Corpuscular Hemoglobin 31.6 pg (27.0-33.0); Mean Corpuscular Volume 96.6 fL (80-95); Monocytes % 8.5; Neutrophils % 74.9; Platelet Count 247 x1000/uL (130-400); RBC 3.83 m/cumm (4.50-6.00); RBC Distribution Width 13.4 % (11.8-14.1); White Blood Cell Count 5.79 k/cumm (4.4-10.8)
[2019-09-05 08:20] LABS: Anion Gap 7.4 mmol/L (3-11); BUN 13 mg/dL (7-18); C-Reactive Protein 6.48 mg/dL (0.0-0.3); CO2 27.6 mmol/L (21.0-32.0); CREATININE 0.86 mg/dL (0.70-1.30); Calcium 8.5 mg/dL (8.5-10.1); Chloride 111 mmol/L (98-107); Glucose 92 mg/dL (74-106); Magnesium 1.8 mg/dL (1.8-2.4); Potassium 3.9 mmol/L (3.5-5.1); Sodium 146 mmol/L (136-145)
[2019-09-05] MEDS: Budesonide/Formoterol 160/4.5 6 GM 60 PUFF INH IH ×2 (09:39→19:48)
[2019-09-05] MEDS: Normal Saline 1,000 ML 125 ML IV (10:07)
--- NOTE | 2019-09-05 10:33 | PDOC.CMIN ---
Care Management Initial Assess REASON FOR HOSPITALIZATION:: Prepatellar cellulitis/septic bursitis RLE PAST MEDICAL HISTORY/PAST SURGICAL HISTORY:: BPH, COPD, CVA, LLE Edema, Essential tremor, former smoker, GERD, lung mass PREVIOUS FUNCTIONAL STATUS/SOCIAL/FAMILY SUPPORTS:: Radha resides with his Rolando in [facility]. At baseline Radha is independent, drives, and manages his own ADL's in the community. CURRENT FUNCTIONAL STATUS:: Radha was sitting up in his chair, his at his side. He and his reviewed his complex medical issues over the last year. Rolando reported anticipating Radha would remain at [facility] overnight for IV ABX with possible discharge home tomorrow. ADVANCE DIRECTIVES:: None on file at [facility] Has patient been provided with information about the portal?: Yes Did the patient sign up for the portal?: No CODE STATUS:: DNR/DNI INSURANCE COVERAGE / FINANCIAL ISSUES:: [facility] CURRENT HOME/COMMUNITY SERVICES/EQUIPMENT:: No current services or medical equipment in the community. PRIMARY CARE PHYSICIAN:: Joe Quiñones M.D. POTENTIAL DISCHARGE NEEDS:: Antibiotic course, follow up appointments. PATIENT/FAMILY EDUCATION NEEDS:: Review discharge instructions, discuss [employer]. ANTICIPATED BARRIERS TO DISCHARGE:: None identified. TRANSPORTATION:: Via private vehicle with his . PLAN:: Radha will continue to be monitored and treated for sepsis. Undetermined antibiotic course at this time. CM continues to follow.
--- NOTE | 2019-09-05 10:42 | PTTR_ITS ---
Date of service: 09/05/19 Time of Service: 10:42 PT Notes Visit Reasons: PREPATELLAR CELLULITIS/SEPTIC BURSITIS RLE Inpatient Physical Therapy Treatment Note [facility] Date: 09/05/2019 PRECAUTIONS: Standard. Fall. Activity as tolerated. SUBJECTIVE: Pt reports that his knee is feeling much better and Dr. Ayala had come this morning to remove some ?puss.? OBJECTIVE: two IV lines in RUE PAIN: 1/10 BED MOBILITY/TRANSFERS Sit-stand: independent Stand-sit: independent Bed-Chair: independent Chair-bed: independent GAIT: Pt was able to ambulate 50 feet + 300 feet + 50 feet, full weight bearing, without the use of an assistive device. Supervision provided by PT and PT student. Reciprocal gait pattern. No arm swing observed. Complained increased pain to 2/10 in right knee. STAIRS: Pt was able to ascend and descend the 6-inch steps x4 and 4-inch steps x 6 without upper extremity support. Supervision provided by PT and PT student. No complaints of increased pain. THEREX: Mini squats x 10 Standing hip flexion / knee flexion R x 10 ASSESSMENT: Pt reports significant improvements in knee pain. He was able to tolerate a greater distance in ambulation without the use of an assistive device. Demonstrated ability to negotiate stairs without upper extremity support or increased pain. Tolerated standing strengthening interventions for the lower extremities and demonstrated good standing balance. He would benefit from physical therapy to continue to assess independence with ambulation. PLAN: Continue with established POC. Discharge to home when medically cleared. TREATMENT CODE/TIME: 22429 x 20 minutes beginning at 10:42 AM. BERT Gee Doctor of Physical Therapy Student [facility] Supervision provided by Adelina Storey PT, DPT, CLT [facility] [place], [place]
[2019-09-05 11:04] VITALS: BP 126/85; PULSE 83; RESP 19; TEMP 37; O2SAT 95
--- NOTE | 2019-09-05 11:28 | W.PM.PROGNOT ---
Date of Service Date of service: 09/05/19 Time of Service: 10:30 Assessment and Plan Assessment and plan (1) Bursitis, prepatellar, right: Status: Acute Assessment and plan: Marked improvement will continue vancomycin, add zosyn day 2/14. waiting for cultures to step down to oral, failed outpatient treatment with doxycycline and keflex 4 days. elevate extremity, cultures from I&D pending. (2) GERD (gastroesophageal reflux disease): Status: Chronic Assessment and plan: will place on GI prophylaxis while hospitalized (3) COPD (chronic obstructive pulmonary disease): Status: Chronic Assessment and plan: stable and at baseline. no oxygen requirements. continue home inhalers (4) BPH (benign prostatic hyperplasia): Status: Chronic Assessment and plan: stable, continue tamsulosin, monitor for signs of urinary retention (5) DVT prophylaxis: Status: Acute Assessment and plan: enoxaparin daily (6) Discharge planning issues: Status: Acute Assessment and plan: anticipate discharge to home with no services once medically stable. PT consulted for discharge planning Subjective Subjective Patient reports: no new complaints and feels better Interval history since last seen: with marked improvement in erythema and swelling. no fevers. eating and drinking well. still awaiting culture results. Exam Narrative Exam Narrative: General: cooperative, no acute distress, elderly male older than stated age chronically ill appearing Nutritional Appearance: cachectic [facility] Head: normocephalic and atraumatic Mouth: moist mucous membranes abnormal (slightly dry) Eyes Conjunctivae: conjunctival abnormality bilaterally conjunctival injection diffuse Sclera: scleral abnormality bilaterally scleral injection Resp Effort & Inspection: tachypneic Auscultation: diminished lung sounds bilaterally Cardio Rate: regular rate Rhythm: regular rhythm GI Inspection: normal to inspection Palpation: soft Auscultation: normal bowel sounds Skin General skin exam: dry skin and other (skin with general cyanotic appearance, chronic appearing) Rashes: rashes noted (right lower extremity, dark over knee, extends distally to foot markedly improved overnight with most resolved other than over patella. ) Hair: brittle Nails: clubbing and discolored Neuro General: alert and oriented x3 Cranial Nerves: CN's II-XI intact bilaterally Extrem General: normal to inspection, full ROM and edema Laterality: right Objective Objective Clinical Data: Abnormal lab results 09/05/19 09/05/19 Range/Units 07:05 07:05 RBC 3.83 L (4.50-6.00) m/cumm Hgb 12.1 L (13.5-17.5) g/dL Hct 37.0 L (40.0-50.0) % MCV 96.6 H (80-95) fL Absolute Lymphocytes 0.61 L (1.2-3.4) k/cumm Sodium 146 H (136-145) mmol/L Chloride 111 H (98-107) mmol/L C-Reactive Protein 6.48 H (0.0-0.3) mg/dL Vital Signs Temperature 37.0 C 09/05/19 11:04 Temperature Source Tympanic 09/05/19 11:04 Pulse 83 09/05/19 11:04 Pulse Rhythm Regular 09/05/19 00:20 Pulse Strength Normal 09/04/19 11:38 Respiratory Rate 19 09/05/19 11:04 Respiratory Effort 09/05/19 00:20 Respiratory Depth Normal 09/05/19 00:20 Respiratory Pattern Normal 09/05/19 00:20 Blood Pressure 126/85 09/05/19 11:04 Blood Pressure Mean 106 09/04/19 11:38 Blood Pressure Position Supine 09/04/19 08:17 Pulse Oximetry 95 09/05/19 11:04 Oxygen Delivery Method Room Air 09/05/19 11:04 Oxygen Flow Rate 0 09/05/19 11:04 Pain Level 0 09/05/19 11:04 Intake & Output 09/04/19 09/04/19 09/05/19 11:59 23:59 11:59 Intake Total 2610 / 2610 1250 / 1250 Output Total 325 / 325 750 / 750 Balance 2285 / 2285 500 / 500 Weight 59.8 kg 59.8 kg 60.3 kg Intake: IV 2250 / 2250 1250 / 1250 Oral 360 / 360 0 / 0 Output: Urine 325 / 325 750 / 750 Other: Urine Color Yellow Yellow Urine Appearance Clear Clear Urine Odor Normal Comment in 3 voids during noc shift Stool Size Moderate Stool Characteristics Soft Formed Voiding Methods Urinal Urinal Laboratory Results WBC 5.79 k/cumm (4.4-10.8) 09/05/19 07:05 RBC 3.83 m/cumm (4.50-6.00) L 09/05/19 07:05 Hgb 12.1 g/dL (13.5-17.5) L 09/05/19 07:05 Hct 37.0 % (40.0-50.0) L 09/05/19 07:05 MCV 96.6 fL (80-95) H 09/05/19 07:05 MCH 31.6 pg (27.0-33.0) 09/05/19 07:05 MCHC 32.7 g/dL (32.0-36.0) 09/05/19 07:05 RDW 13.4 % (11.8-14.1) 09/05/19 07:05 Plt Count 247 x1000/uL (130-400) 09/05/19 07:05 MPV 9.0 fL (8.0-11.0) 09/05/19 07:05 Immature Gran % 0.2 % 09/05/19 07:05 Neutrophils % 74.9 09/05/19 07:05 Lymphocytes % 10.5 09/05/19 07:05 Monocytes % 8.5 09/05/19 07:05 Eosinophils % 5.2 09/05/19 07:05 Basophils % 0.7 09/05/19 07:05 Absolute Neutrophils 4.34 k/cumm (1.2-6.7) 09/05/19 07:05 Absolute Lymphocytes 0.61 k/cumm (1.2-3.4) L 09/05/19 07:05 Absolute Monocytes 0.49 k/cumm (0.11-0.7) 09/05/19 07:05 Absolute Eosinophils 0.30 k/cumm (0.0-0.7) 09/05/19 07:05 Absolute Basophils 0.04 k/cumm (0.0-0.2) 09/05/19 07:05 Sodium 146 mmol/L (136-145) H 09/05/19 07:05 Potassium 3.9 mmol/L (3.5-5.1) 09/05/19 07:05 Chloride 111 mmol/L (98-107) H 09/05/19 07:05 Carbon Dioxide 27.6 mmol/L (21.0-32.0) 09/05/19 07:05 Anion Gap 7.4 mmol/L (3-11) 09/05/19 07:05 BUN 13 mg/dL (7-18) D 09/05/19 07:05 Creatinine 0.86 mg/dL (0.70-1.30) 09/05/19 07:05 Estimated GFR/1.73 m2 >= 60.00 (mL/min/1.73m2) 09/05/19 07:05 Glucose 92 mg/dL (74-106) 09/05/19 07:05 Calcium 8.5 mg/dL (8.5-10.1) 09/05/19 07:05 Magnesium 1.8 mg/dL (1.8-2.4) 09/05/19 07:05 Total Bilirubin 0.3 mg/dL (0.2-1.0) 09/04/19 08:55 AST 26 U/L (15-37) 09/04/19 08:55 ALT 25 U/L (16-63) 09/04/19 08:55 Alkaline Phosphatase 88 U/L (46-116) 09/04/19 08:55 C-Reactive Protein 6.48 mg/dL (0.0-0.3) H 09/05/19 07:05 Total Protein 6.0 g/dL (6.4-8.2) L 09/04/19 08:55 Albumin 2.5 g/dL (3.4-5.0) L 09/04/19 08:55
[2019-09-05] MEDS: Enoxaparin 40 MG/0.4 ML SYR SC (11:45)
[2019-09-05] MEDS: Lactobacillus Acidophilus CAP 1 CAP PO ×2 (12:59→19:48)
--- NOTE | 2019-09-05 13:56 | W.PM.PROGNOT ---
Date of Service Date of service: 09/05/19 Time of Service: 13:56 Assessment and Plan Assessment and plan (1) Bursitis, prepatellar, right: Status: Acute Assessment and plan: Radha is a 78-year-old with septic prepatellar bursitis of the right knee. He has responded really nicely to vancomycin. 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 There is minimal purulence today. The erythema has receded significantly. The current look of the knee is what I would expect for a recent septic bursitis. Therefore, I would continue to treat this with antibiotics sensitive to MRSA. I would recommend 48 to 72 hours of IV antibiotics before proceeding on an oral regimen. It is still possible that he may need a surgical involvement but this point he seems to be responding to the IV antibiotics and therefore does not need any urgent procedures currently. He may move the knee as tolerated. He may ambulate as tolerated. I will continue to see him while he is in the hospital to evaluate the right knee in case things take a turn for the worse. Subjective Subjective Patient reports: no new complaints Interval history since last seen: Radha feels the knee is better today. He thinks the redness is also gone down. He has been able to ambulate. He has had no increasing pain. He does have some pain over the anterior knee when he tries to bend the knee. No fevers no chills. Exam Narrative Exam Narrative: Evaluation of the right knee shows receding erythema. It really is almost hyperemic rather than truly erythematous. The streaking and spreading of erythema seen going down the leg is now resolved. There still is an area of fullness over the anterior left knee. The previous scab was removed and I was able to express 3 to 4 cc of thick and purulent material. However, there is significant decrease in the fluctuance of the left knee. He has no significant pain with gentle knee flexion and extension. Objective Objective Clinical Data: Abnormal lab results 09/05/19 09/05/19 Range/Units 07:05 07:05 RBC 3.83 L (4.50-6.00) m/cumm Hgb 12.1 L (13.5-17.5) g/dL Hct 37.0 L (40.0-50.0) % MCV 96.6 H (80-95) fL Absolute Lymphocytes 0.61 L (1.2-3.4) k/cumm Sodium 146 H (136-145) mmol/L Chloride 111 H (98-107) mmol/L C-Reactive Protein 6.48 H (0.0-0.3) mg/dL Vital Signs Temperature 37.0 C 09/05/19 11:04 Temperature Source Tympanic 09/05/19 11:04 Pulse 83 09/05/19 11:04 Pulse Rhythm Regular 09/05/19 13:49 Pulse Strength Normal 09/04/19 11:38 Respiratory Rate 19 09/05/19 11:04 Respiratory Effort 09/05/19 13:49 Respiratory Depth Normal 09/05/19 13:49 Respiratory Pattern Normal 09/05/19 13:49 Blood Pressure 126/85 09/05/19 11:04 Blood Pressure Mean 106 09/04/19 11:38 Blood Pressure Position Supine 09/04/19 08:17 Pulse Oximetry 95 09/05/19 11:04 Oxygen Delivery Method Room Air 09/05/19 11:04 Oxygen Flow Rate 0 09/05/19 11:04 Pain Level 0 09/05/19 11:04 Intake & Output 09/04/19 09/05/19 09/05/19 23:59 11:59 23:59 Intake Total 2610 / 2610 1300 / 1420 120 / 1420 Output Total 325 / 325 750 / 750 Balance 2285 / 2285 550 / 670 120 / 670 Weight 59.8 kg 60.3 kg Intake: IV 2250 / 2250 1300 / 1300 Oral 360 / 360 0 / 120 120 / 120 Output: Urine 325 / 325 750 / 750 Other: Urine Color Yellow Yellow Urine Appearance Clear Clear Urine Odor Normal Comment in 3 voids during noc shift Stool Size Moderate Stool Characteristics Soft Formed Voiding Methods Urinal Urinal Laboratory Results WBC 5.79 k/cumm (4.4-10.8) 09/05/19 07:05 RBC 3.83 m/cumm (4.50-6.00) L 09/05/19 07:05 Hgb 12.1 g/dL (13.5-17.5) L 09/05/19 07:05 Hct 37.0 % (40.0-50.0) L 09/05/19 07:05 MCV 96.6 fL (80-95) H 09/05/19 07:05 MCH 31.6 pg (27.0-33.0) 09/05/19 07:05 MCHC 32.7 g/dL (32.0-36.0) 09/05/19 07:05 RDW 13.4 % (11.8-14.1) 09/05/19 07:05 Plt Count 247 x1000/uL (130-400) 09/05/19 07:05 MPV 9.0 fL (8.0-11.0) 09/05/19 07:05 Immature Gran % 0.2 % 09/05/19 07:05 Neutrophils % 74.9 09/05/19 07:05 Lymphocytes % 10.5 09/05/19 07:05 Monocytes % 8.5 09/05/19 07:05 Eosinophils % 5.2 09/05/19 07:05 Basophils % 0.7 09/05/19 07:05 Absolute Neutrophils 4.34 k/cumm (1.2-6.7) 09/05/19 07:05 Absolute Lymphocytes 0.61 k/cumm (1.2-3.4) L 09/05/19 07:05 Absolute Monocytes 0.49 k/cumm (0.11-0.7) 09/05/19 07:05 Absolute Eosinophils 0.30 k/cumm (0.0-0.7) 09/05/19 07:05 Absolute Basophils 0.04 k/cumm (0.0-0.2) 09/05/19 07:05 Sodium 146 mmol/L (136-145) H 09/05/19 07:05 Potassium 3.9 mmol/L (3.5-5.1) 09/05/19 07:05 Chloride 111 mmol/L (98-107) H 09/05/19 07:05 Carbon Dioxide 27.6 mmol/L (21.0-32.0) 09/05/19 07:05 Anion Gap 7.4 mmol/L (3-11) 09/05/19 07:05 BUN 13 mg/dL (7-18) D 09/05/19 07:05 Creatinine 0.86 mg/dL (0.70-1.30) 09/05/19 07:05 Estimated GFR/1.73 m2 >= 60.00 (mL/min/1.73m2) 09/05/19 07:05 Glucose 92 mg/dL (74-106) 09/05/19 07:05 Calcium 8.5 mg/dL (8.5-10.1) 09/05/19 07:05 Magnesium 1.8 mg/dL (1.8-2.4) 09/05/19 07:05 Total Bilirubin 0.3 mg/dL (0.2-1.0) 09/04/19 08:55 AST 26 U/L (15-37) 09/04/19 08:55 ALT 25 U/L (16-63) 09/04/19 08:55 Alkaline Phosphatase 88 U/L (46-116) 09/04/19 08:55 C-Reactive Protein 6.48 mg/dL (0.0-0.3) H 09/05/19 07:05 Total Protein 6.0 g/dL (6.4-8.2) L 09/04/19 08:55 Albumin 2.5 g/dL (3.4-5.0) L 09/04/19 08:55
--- NOTE | 2019-09-05 14:36 | CHAPLAIN ---
Radha was sitting up in a chair visiting with his , daughter and granddaughter when I visited. He said he is feeling better and that his leg is looking better. but he expects to being staying her for at least one more night. Radha's family seems to be very supportive. His , Rolando, is an [employer] employee who works in Environmental Services.
[2019-09-05 15:27] VITALS: BP 119/66; PULSE 70; RESP 18; TEMP 37.4; O2SAT 94
--- NOTE | 2019-09-05 15:34 | PHARADMIT ---
Admission Pharmacy Clinical Review PRE-PATELLAR CELLUITIS/SEPTIC BURSITIS RLE Code Status DNR/DNI Current Weight Wgt-60.3 kg Renally Cleared and Narrow Therapeutic Index Meds CrCl~62 mL/min Meds-OK QTc Value / Action Taken QTc-411 NA BP Control, Fever BP- 119/66 Tmax- 37.4 Electrolytes reviewed Na-146 K+3.9 Mag-1.8 DVT Prophylaxis ASA, Lovenox 40mg Opiate Usage / Scheduled Bowel Regimen Ordered No Yes Plt/SCr for Heparin / Enoxaparin Plts-247 SCr-0.86 INR for Warfarin na H/H stable, WBC/Bands H&H- 12.1/37.0 WBC-5.79 Antibiotic appropriateness Zosyn, Vancomycin Cultures and Sensitivities Blood-No growth/24HR Surgical ABX d/c within 24 hr NA DM control / Insulin Dosing BG-92 Heart Failure (Check EF%) (HEATHER's, B-Block, Diuretics) none IV to PO Switch No Home Meds Reviewed Yes Home Meds Not Ordered Flovent-Serevent-(subs- Symbicort), [place]-3, Keflex, Doxycycline Comments RCRP-6.48
[2019-09-05 15:39] LABS: Vancomycin, Trough 17.6 ug/mL (10.0-20.0)
[2019-09-05] MEDS: Acetaminophen 325 MG TAB PO (18:11)
[2019-09-05] MEDS: guaiFENesin 600 MG TABCR PO (19:48)
[2019-09-05 20:05] VITALS: BP 133/69; PULSE 74; RESP 19; TEMP 37.2; O2SAT 93
[2019-09-05 23:53] VITALS: BP 112/68; PULSE 70; RESP 18; TEMP 36.7; O2SAT 96
--- NOTE | 2019-09-06 | DI.US_ITS ---
EXAM: US LOWER EXTREMITY VENOUS RT CLINICAL HISTORY: right lower extremity edema. TECHNIQUE: Lower extremity venous ultrasound performed using grayscale, color-flow, and spectral Dop pler analysis. COMPARISON: No exams were available for comparison FINDINGS: The common femoral, femoral and popliteal veins demonstrate normal compressibility, augmentation, and color Doppler. The posterior tibial veins are patent. The saphenous vein appears free of thrombus. No Camp's cyst or hematoma is seen. Arterial calcifications are noted. IMPRESSION: No evidence of DVT. DATA REPOSITORY:
[2019-09-06] MEDS: PIPERACILLIN/TAZO 3.375 GM in Normal Saline 50 ML IVPB (05:46)
[2019-09-06 07:16] VITALS: BP 132/75; PULSE 82; RESP 17; TEMP 37; O2SAT 97
[2019-09-06] MEDS: Budesonide/Formoterol 160/4.5 6 GM 60 PUFF INH IH (07:45)
--- NOTE | 2019-09-06 08:01 | W.PM.PROGNOT ---
Date of Service Date of service: 09/06/19 Time of Service: 08:01 Assessment and Plan Assessment and plan (1) Bursitis, prepatellar, right: Status: Acute Assessment and plan: Radha is a 78-year-old who likely has MRSA prepatellar bursitis of the right knee. Has responded very well to vancomycin. At this point, he may transition to outpatient regimen. Linezolid would cover MRSA without any particular concerns. However, it may be cost prohibitive. This wound still may require surgical decompression and debridement. However, he is relatively unhealthy and would prefer to avoid surgery. It has resolved nicely to the vancomycin and therefore the Linezolid would be a good option. However, if this is not able to be covered, we could try Bactrim with close follow-up in another week. He may move the knee as tolerated. He needs no wrap or dressing to the knee. I will see him back another 1-2 weeks to make sure the knee has continued to do well. Subjective Subjective Interval history since last seen: Radha reports be doing well. He has no increase in pain. He has had no fevers and chills. He has been able to ambulate independently and has been able to move his knee more than he has in the past. He reports no drainage from the knee. Exam Narrative Exam Narrative: Sitting comfortably upright in the chair. Evaluation of the right knee shows significant hyperemia about the knee. However, any expanding cellulitis is now gone. There is no streaking. There is very minimal tenderness palpation. There is still is that one wound site which has continued to heal. There is no notable fluctuance. With direct pressure of the knee I am able to express a small drop with thickened purulent material. However, there is no excessive fluid as there has been in the past. He tolerates passive range of motion without pain. Active range of motion causes pain only when he tries going to deep flexion. Objective Objective Clinical Data: Abnormal lab results 09/05/19 09/05/19 Range/Units 07:05 07:05 RBC 3.83 L (4.50-6.00) m/cumm Hgb 12.1 L (13.5-17.5) g/dL Hct 37.0 L (40.0-50.0) % MCV 96.6 H (80-95) fL Absolute Lymphocytes 0.61 L (1.2-3.4) k/cumm Sodium 146 H (136-145) mmol/L Chloride 111 H (98-107) mmol/L C-Reactive Protein 6.48 H (0.0-0.3) mg/dL Vital Signs Temperature 37.0 C 09/06/19 07:16 Temperature Source Tympanic 09/06/19 07:16 Pulse 82 09/06/19 07:16 Pulse Rhythm Regular 09/05/19 23:50 Pulse Strength Normal 09/04/19 11:38 Respiratory Rate 17 09/06/19 07:16 Respiratory Effort Non-Labored 09/05/19 23:50 Respiratory Depth Normal 09/05/19 23:50 Respiratory Pattern Normal 09/05/19 23:50 Blood Pressure 132/75 09/06/19 07:16 Blood Pressure Mean 106 09/04/19 11:38 Blood Pressure Position Supine 09/04/19 08:17 Pulse Oximetry 97 09/06/19 07:16 Oxygen Delivery Method Room Air 09/06/19 07:16 Oxygen Flow Rate 0 09/06/19 07:16 Pain Level 0 09/06/19 07:16 Intake & Output 09/05/19 09/05/19 09/06/19 11:59 23:59 11:59 Intake Total 1300 / 2730 1430 / 2730 250 / 250 Output Total 750 / 950 200 / 950 200 / 200 Balance 550 / 1780 1230 / 1780 50 / 50 Weight 60.3 kg 59 kg Intake: IV 1300 / 2610 1310 / 2610 250 / 250 Oral 0 / 120 120 / 120 Output: Urine 750 / 950 200 / 950 200 / 200 Other: Urine Color Yellow Yellow Light Leandra Urine Appearance Clear Clear Clear Urine Odor Normal Normal Comment in 3 voids during noc shift Voiding Methods Urinal Urinal Urinal Laboratory Results WBC 5.79 k/cumm (4.4-10.8) 09/05/19 07:05 RBC 3.83 m/cumm (4.50-6.00) L 09/05/19 07:05 Hgb 12.1 g/dL (13.5-17.5) L 09/05/19 07:05 Hct 37.0 % (40.0-50.0) L 09/05/19 07:05 MCV 96.6 fL (80-95) H 09/05/19 07:05 MCH 31.6 pg (27.0-33.0) 09/05/19 07:05 MCHC 32.7 g/dL (32.0-36.0) 09/05/19 07:05 RDW 13.4 % (11.8-14.1) 09/05/19 07:05 Plt Count 247 x1000/uL (130-400) 09/05/19 07:05 MPV 9.0 fL (8.0-11.0) 09/05/19 07:05 Immature Gran % 0.2 % 09/05/19 07:05 Neutrophils % 74.9 09/05/19 07:05 Lymphocytes % 10.5 09/05/19 07:05 Monocytes % 8.5 09/05/19 07:05 Eosinophils % 5.2 09/05/19 07:05 Basophils % 0.7 09/05/19 07:05 Absolute Neutrophils 4.34 k/cumm (1.2-6.7) 09/05/19 07:05 Absolute Lymphocytes 0.61 k/cumm (1.2-3.4) L 09/05/19 07:05 Absolute Monocytes 0.49 k/cumm (0.11-0.7) 09/05/19 07:05 Absolute Eosinophils 0.30 k/cumm (0.0-0.7) 09/05/19 07:05 Absolute Basophils 0.04 k/cumm (0.0-0.2) 09/05/19 07:05 Sodium 146 mmol/L (136-145) H 09/05/19 07:05 Potassium 3.9 mmol/L (3.5-5.1) 09/05/19 07:05 Chloride 111 mmol/L (98-107) H 09/05/19 07:05 Carbon Dioxide 27.6 mmol/L (21.0-32.0) 09/05/19 07:05 Anion Gap 7.4 mmol/L (3-11) 09/05/19 07:05 BUN 13 mg/dL (7-18) D 09/05/19 07:05 Creatinine 0.86 mg/dL (0.70-1.30) 09/05/19 07:05 Estimated GFR/1.73 m2 >= 60.00 (mL/min/1.73m2) 09/05/19 07:05 Glucose 92 mg/dL (74-106) 09/05/19 07:05 Calcium 8.5 mg/dL (8.5-10.1) 09/05/19 07:05 Magnesium 1.8 mg/dL (1.8-2.4) 09/05/19 07:05 Total Bilirubin 0.3 mg/dL (0.2-1.0) 09/04/19 08:55 AST 26 U/L (15-37) 09/04/19 08:55 ALT 25 U/L (16-63) 09/04/19 08:55 Alkaline Phosphatase 88 U/L (46-116) 09/04/19 08:55 C-Reactive Protein 6.48 mg/dL (0.0-0.3) H 09/05/19 07:05 Total Protein 6.0 g/dL (6.4-8.2) L 09/04/19 08:55 Albumin 2.5 g/dL (3.4-5.0) L 09/04/19 08:55 Vancomycin Trough 17.6 ug/mL (10.0-20.0) 09/05/19 15:20
[2019-09-06] MEDS: Aspirin 81 MG CHEW PO (08:04)
[2019-09-06] MEDS: Lactobacillus Acidophilus CAP 1 CAP PO ×2 (08:04→14:05)
[2019-09-06] MEDS: Multivitamin TAB 1 TAB PO (08:04)
[2019-09-06] MEDS: guaiFENesin 600 MG TABCR PO (08:04)
[2019-09-06] MEDS: Tamsulosin 0.4 MG CAPCR PO (08:04)
[2019-09-06] MEDS: Pantoprazole 40 MG TABCR PO (08:04)
--- NOTE | 2019-09-06 09:50 | W.PM.DS.N ---
Date of service: 09/06/19 Time of Service: 09:50 DS: Diagnosis Discharge Diagnosis (1) Bursitis, prepatellar, right: Status: Acute Discharge Plan Disposition Patient Disposition: HOME Condition: Stable Discharge Details Chief Complaint: Cellulitis Clinical Impression: Bursitis, prepatellar, right Reason For Visit: PREPATELLAR CELLULITIS/SEPTIC BURSITIS RLE Admit Date/Time: 09/04/19 10:42 Admit Provider: Blanche Jameson Attending Provider: Blanche Jameson Primary Care Provider: Joe Quiñones ED Provider: Willie Powers Hospital Course Hospital Course: This is a 78-year-old male patient with a past medical history significant for chronic obstructive pulmonary disease who presented to the emergency department after a 5-day history of right knee prepatellar bursitis/cellulitis and swelling that was worsening since despite 4 days of doxycycline and Keflex. He continued to have progressive pain and swelling with erythema extending to his right ankle he had no pain on movement of the joint. His bursa was I indeed in the emergency department and culture was sent for ID and sensitivity. He was started on vancomycin with Zosyn added and was admitted to medical surgical unit for inpatient treatment of failed outpatient oral antibiotics. He was seen in consultation by Dr. Ayala of orthopedics. His swelling and erythema improved markedly on the IV antibiotics. He remained afebrile he was eating and drinking and bowels and bladder functioning and voicing no complaints. He was not always compliant with elevation of his extremity and did develop some right pedal edema. This was most likely associated with his cellulitis and lack of compliance with elevation but on day of discharge his was quite concerned so I did obtain an ultrasound of the right lower extremity. This was negative for DVT as anticipated. He will be discharged home to complete a 14-day course of antibiotics he will be discharged on linezolid. He will follow-up outpatient with orthopedics Home Meds and New Rx's Prescriptions: New linezolid 600 mg tablet 600 mg PO BID Qty: 24 RF: 0 Continued Flovent HFA 120 PUFF HFA aerosol inhaler 2 puff Inhalation BID Qty: 1 RF: 0 ipratropium-albuterol 3 ML solution for nebulization 3 ml UPD QID PRN PRN (Reason: Shortness Of Breath) Qty: 60 RF: 0 multivitamin [Once Daily] 1 EACH tablet 1 tab PO DAILY RF: 0 tamsulosin 0.4 MG capsule 0.4 mg PO DAILY RF: 0 Serevent Diskus 1 EACH blister with device 1 puff Inhalation BID RF: 0 albuterol sulfate [ProAir HFA] 200 PUFF/INH HFA aerosol inhaler 2 puff Inhalation PRN PRNRF: 0 Fish Oil 1 EACH capsule 1 cap PO DAILY RF: 0 benzonatate 100 mg Capsule 100 mg PO TID PRNQty: 15 RF: 0 lidocaine [Lidoderm] 5 % Adhesive Patch,Medicated 2 patch topical Q24H Qty: 28 RF: 0 aspirin 81 mg Tablet,Chewable 81 mg PO DAILY Qty: 30 RF: 0 Discontinued cephalexin [Keflex] 500 mg capsule 500 mg PO QID Qty: 39 RF: 0 doxycycline hyclate 100 mg tablet 100 mg PO BID Qty: 19 RF: 0 Discharge Instructions Instructions: Cellulitis (DC) Additional Instructions: Please elevate your right lower extremity above the level of your heart as much as possible throughout the day. Take your antibiotics as prescribed even if you start feeling better. Please report worsening symptoms immediately Stand Alone Forms: Nursing Discharge Form Referrals: Kassie Jacobo MD [ [facility] STAFF PHYSICIAN] - 09/12/19 10:00 am Yaakov Ayala MD [ [facility] STAFF PHYSICIAN] - 09/20/19 10:15 am Activity:: Elevate right lower extremity Equipment/Supplies:: No Equipment Needed Diet:: As Tolerated Discharge Orders Discharge Orders: Discharge Order (Routine); Ordered 09/06/19 Ordered By: Seema Pearson DS: Summary Status at Discharge Functional status at discharge: uses cane/walker Overall status at discharge: patient is progressing back to baseline Mental Status: mental status grossly normal Speech and Movement: speech and movement normal Mood: congruent mood Affect: normal affect Exam Narrative Exam Narrative: General: cooperative, no acute distress, elderly male older than stated age chronically ill appearing Nutritional Appearance: cachectic [facility] Head: normocephalic and atraumatic Mouth: moist mucous membranes abnormal (slightly dry) Eyes Conjunctivae: conjunctival abnormality bilaterally conjunctival injection diffuse Sclera: scleral abnormality bilaterally scleral injection Resp Effort & Inspection: tachypneic Auscultation: diminished lung sounds bilaterally Cardio Rate: regular rate Rhythm: regular rhythm GI Inspection: normal to inspection Palpation: soft Auscultation: normal bowel sounds Skin General skin exam: dry skin and other (skin with general cyanotic appearance, chronic appearing) Rashes: rashes noted (right lower extremity, dark over knee, extends distally to foot markedly improved overnight with most resolved other than over patella. ) Hair: brittle Nails: clubbing and discolored Neuro General: alert and oriented x3 Cranial Nerves: CN's II-XI intact bilaterally Extrem General: normal to inspection, full ROM and edema Laterality: right Psych Mental Status: mental status grossly normal Speech and Movement: speech and movement normal Mood: congruent mood Affect: normal affect DS: Data Vitals/I&O Vitals and I&O: Vital Signs Temperature 37.0 C 09/06/19 07:16 Temperature Source Tympanic 09/06/19 07:16 Pulse 82 09/06/19 07:16 Pulse Rhythm Regular 09/05/19 23:50 Pulse Strength Normal 09/04/19 11:38 Respiratory Rate 17 09/06/19 07:16 Respiratory Effort Non-Labored 09/05/19 23:50 Respiratory Depth Normal 09/05/19 23:50 Respiratory Pattern Normal 09/05/19 23:50 Blood Pressure 132/75 09/06/19 07:16 Blood Pressure Mean 106 09/04/19 11:38 Blood Pressure Position Supine 09/04/19 08:17 Pulse Oximetry 97 09/06/19 07:16 Oxygen Delivery Method Room Air 09/06/19 07:16 Oxygen Flow Rate 0 09/06/19 07:16 Pain Level 0 09/06/19 07:16 Intake & Output 09/05/19 09/05/19 09/06/19 11:59 23:59 11:59 Intake Total 1300 / 2730 1430 / 2730 490 / 490 Output Total 750 / 950 200 / 950 200 / 200 Balance 550 / 1780 1230 / 1780 290 / 290 Weight 60.3 kg 59 kg Intake: IV 1300 / 2610 1310 / 2610 250 / 250 Oral 0 / 120 120 / 120 240 / 240 Output: Urine 750 / 950 200 / 950 200 / 200 Other: Urine Color Yellow Yellow Light Leandra Urine Appearance Clear Clear Clear Urine Odor Normal Normal Comment in 3 voids during noc shift Voiding Methods Urinal Urinal Urinal Data Completed and Pending Labs on day of discharge: Labs from last 24 hours 09/05/19 15:20 Vancomycin Trough 17.6 Preliminary micro results at discharge 09/04/19 09:15 Blood Culture - Preliminary Blood NO GROWTH 24 HOURS 09/04/19 08:55 Blood Culture - Preliminary Blood NO GROWTH 24 HOURS 09/04/19 10:31 Body Fluid Culture - Preliminary Synovial - [facility] Medical History BPH (benign prostatic hyperplasia) (Chronic) COPD (chronic obstructive pulmonary disease) (Chronic) CVA (cerebral vascular accident) (Chronic) Edema of left lower extremity (Acute) Essential tremor (Acute) Former smoker (Acute) GERD (gastroesophageal reflux disease) (Chronic) Lung mass (Acute) Social History Smoking/Tobacco Use Status: Former Tobacco Use Alcohol Intake: never Drug use: Never Substance use type: does not use Household members: spouse Housing: house Number of Children: 2 current occupation: Retired. [employer]. Do you feel safe at home: Yes Do you feel safe in your relationship?: Yes
[2019-09-06 11:12] VITALS: BP 111/66; PULSE 73; RESP 18; TEMP 37.3; O2SAT 96
[2019-09-06] MEDS: Enoxaparin 40 MG/0.4 ML SYR SC (11:55)
--- NOTE | 2019-09-06 12:38 | PDOC.CMDIS ---
LACE Index Scoring Tool - Questions: Length of Stay (in days): 2 Acuity (Admit via E.D.?): Yes Comorbidities: Cerebrovascular Disease, Chronic Pulmonary Disease, Any Tumor E.D. Visits: 4 - Answers: Total Score: 14 Risk of Readmission: High Risk Care Management Discharge Reason for Hospitalization: Prepatellar cellulitis/septic bursitis RLE Discharge Plan: Radha will return home when ready per MD. He will follow up with his community providers and plan of care as prescribed. He will transport via private vehicle with his . Patient/Family Education Needs: Review discharge instructions, discuss Ask Me Three.
--- NOTE | 2019-09-06 13:57 | W.NUTCONSULT ---
Date of service: 09/06/19 Time of Service: 13:57 Nutritional Consult ASSESSMENT: 78 year old female admitted with bursitis and cellulitis of left leg. BMI >19 indicates underweight status. Following heart healthy diet with 100% meal completion per nursing. Not considered at nutritional risk at this time. MONITORING AND EVALUATION: weight, po intake, labs Time Spent in Nutritional Counseling and Treatment: 0 time spent face to face
--- NOTE | 2019-09-07 12:48 | INDS_ITS ---
Date of service: 09/07/19 Time of Service: 12:48 PT Notes Visit Reasons: PREPATELLAR CELLULITIS/SEPTIC BURSITIS RLE Physical Therapy Inpatient Discharge Summary Date: 09/06/2019 Referring Doctor: Blanche Jameson MD PT Orders: PT CONSULT: Limited ability Precautions: Fall. Standard. Activity as tolerated. Patient Profile/Admitting Diagnosis: Patient is a 78-year-old male who presented to the ED twice once on 09/01/2019 and today with chief complaints of progressive right knee swelling and redness. Patient is diagnosed with right knee prepatellar bursitis versus cellulitis and is currently on antibiotics. Referral for physical therapy was made in order to assess mobility level in anticipation of discharge home when medically cleared to do so. PMHX: Medical History BPH (benign prostatic hyperplasia) (Chronic) COPD (chronic obstructive pulmonary disease) (Chronic) CVA (cerebral vascular accident) (Chronic) Edema of left lower extremity (Acute) Essential tremor (Acute) Former smoker (Acute) GERD (gastroesophageal reflux disease) (Chronic) Lung mass (Acute) Social History/Home Situation: Patient lives with in a split-level home with 4 steps to enter that leads to the basement with a rail on the right side going down. There is another set of 7 steps to the main living area of the house. Patient is independent with all aspects of ADLs without the need for an assistive ambulatory device nor adaptive equipment. Patient has sons and daughters who live close by who provide assistance as needed. 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 Equipment Owned/DME: None Subjective: NT Objective: General Observation: Patient is seen resting on bedside chair. Erythema now localized to the L knee. Mental Status: Alert and oriented x4 Pain: 0/10 at rest and with movement ROM: Right Upper Extremity: Shoulder Flexion allows only 30 to 40 degrees. Shoulder abduction 30 to 40 degrees. Elbow flexion WFL. Wrist flexion WFL. Opening and closing of hand WFL. Left Upper Extremity: Shoulder Flexion allows only 30 to 40 degrees. Shoulder abduction 30 to 40 degrees. Elbow flexion WFL. Wrist flexion WFL. Opening and closing of hand WFL. Right Lower Extremity: Hip flexion WFL. Hip abduction WFL. Knee flexion WFL. Knee extension WFL. Ankle dorsiflexion WFL. Ankle plantarflexion WFL. Left Lower Extremity: Hip flexion WFL. Hip abduction WFL. Knee flexion WFL. Ankle dorsiflexion WFL. Ankle plantarflexion WFL. Strength: Right Upper Extremity: Shoulder flexors 3-/5. Shoulder abductors 3-/5. Elbow flexors 3+/5. Elbow extensors 3+/5. Lead Database Administrator strong. Left Upper Extremity: Shoulder flexors 3-/5. Shoulder abductors 3-/5. Elbow flexors 3+/5. Elbow extensors 3+/5. Lead Database Administrator strong. Right Lower Extremity: Hip flexors 5/5. Hip abductors 4/5. Knee flexors 4/5. Knee extensors 4/5. Ankle dorsiflexors 5/5. Ankle plantarflexors 5/5. Left Lower Extremity:Hip flexors 5/5. Hip abductors 5/5. Knee flexors 5/5. Knee extensors 5/5. Ankle dorsiflexors 5/5. Ankle plantarflexors 5/5. Sensation: Intact as to pain and pressure on bilateral lower extremities. Bed Mobility/Transfers: Sit to stand independent Stand to sit independent Bed to chair independent Chair to bed independent Gait: Patient tolerated level surface ambulation of 120 feet + 50 feet using the front wheeled walker with CGA of PT. Reciprocal step through gait pattern observed. No LOB. No increase in pain report in the right knee. Denies headache, chest pain, and dizziness throughout gait activity. Balance: Static Sitting: Normal Dynamic Sitting: Normal Static Standing: Fair Dynamic Standing: Fair Assessment: Patient is complaining of 5/10 pain on the right knee but has not limited his ability to perform level surface ambulation with a front wheeled walker. Will assess safety of progressing patient to ambulation activity without the use of an assistive device tomorrow. Patient is a 78-year-old male who presented to the ED twice once on 09/01/2019 and today with chief complaints of progressive right knee swelling and redness. Patient is diagnosed with right knee prepatellar bursitis versus cellulitis. Patient demonstrated significant functional gains for this episode of care. Goals: Goals X1 week 1. Supine-Sit independent MET 2. Sit-Supine independent MET 3. Sit-Stand independent MET 4. Stand-Sit independent MET 5. Bed-Chair independent MET 6. Chair-Bed independent MET 7. Independent gait on level surface without d an assistive device for at least 300 feet without report of pain nor dyspnea MET 8. Independent stair negotiation while holding onto bilateral rails for at least 10 steps without report of pain nor dyspnea MET 9. Independent with home exercise program NOT MET 10. Good static and dynamic standing balance/tolerance MET DISCHARGE RECOMMENDATIONS: Patient will benefit from home health PT services in order to progress mobility level using least restrictive assistive ambulatory device, assess home safety, identify additional equipment needs, and establish a functional maintenance program that will increase ability of patient to remain at home. TREATMENT CODE/TIME: NC. Thank you very much for this referral. Adelina Storey PT, DPT, CLT [facility] [place], [place]
== END 2019-09-06 14:22 | disposition home or self-care (01) | DRG 558 ==
LOC: ER 11:04 → MS 12:15
PROVIDERS: Nurse Practitioner Acute Care; Admitting Provider Internal Medicine; Emergency Provider Emergency Medicine; PCP Family Medicine; Visit Provider Internal Medicine
DX: M70.41 Prepatellar bursitis, right knee (principal); L03.115 Cellulitis of right lower limb; C34.90 Malignant neoplasm of unspecified part of unspecified bronchus or lung; R64 Cachexia; Z68.1 Body mass index [BMI] 19.9 or less, adult; R60.0 Localized edema; J44.9 Chronic obstructive pulmonary disease, unspecified; Z91.19 Patient's noncompliance with other medical treatment and regimen; L02.425 Furuncle of right lower limb; K21.9 Gastro-esophageal reflux disease without esophagitis; Z87.891 Personal history of nicotine dependence; N40.0 Benign prostatic hyperplasia without lower urinary tract symptoms
CPT/HCPCS: 20610; 36415; 73562; 80048; 80053; 87040; 94640; 96361; 96365; 97162; 97530; 99222; 99223; 99232; 99233; 99239; 99253; 99285; J1650; 80202; 83735; 85025; 86140; 87070; 87205; 93971; 99283; J2543; J3490; J7613; J7620

== ENCOUNTER → 2019-09-20 10:16 | Outpatient (BNVA) | payer OTHER, SELFPAY | PROVIDERS: PCP Family Medicine; Referring Provider Family Medicine; Visit Provider Student in an Organized Health Care Education/Training Program | DX: M70.41 Prepatellar bursitis, right knee (principal) | CPT/HCPCS: 99213 ==

== ENCOUNTER 2019-11-23 08:24 | Emergency (ER) | payer OTHER, SELFPAY ==
[2019-11-23 08:30] VITALS: BP 161/88; PULSE 109; TEMP 37.2; O2SAT 95
[2019-11-23] MEDS: Oxymetazolone 0.05% SPRAY 15 ML BTL NS (08:37)
--- NOTE | 2019-11-23 08:44 | W.ED.GENAD ---
Discharge Plan Disposition Patient Disposition: HOME Condition: Stable Discharge Details Chief Complaint: Epistaxis Clinical Impression: Epistaxis Primary Care Provider: Joe Quiñones ED Provider: Quintin Brody Home Meds and New Rx's Prescriptions: No Action Flovent HFA 120 PUFF HFA aerosol inhaler 2 puff Inhalation BID Qty: 1 RF: 0 ipratropium-albuterol 3 ML solution for nebulization 3 ml UPD QID PRN PRN (Reason: Shortness Of Breath) Qty: 60 RF: 0 multivitamin [Once Daily] 1 EACH tablet 1 tab PO DAILY RF: 0 tamsulosin 0.4 MG capsule 0.4 mg PO DAILY RF: 0 Serevent Diskus 1 EACH blister with device 1 puff Inhalation BID RF: 0 albuterol sulfate [ProAir HFA] 200 PUFF/INH HFA aerosol inhaler 2 puff Inhalation PRN PRNRF: 0 Fish Oil 1 EACH capsule 1 cap PO DAILY RF: 0 benzonatate 100 mg Capsule 100 mg PO TID PRNQty: 15 RF: 0 lidocaine [Lidoderm] 5 % Adhesive Patch,Medicated 2 patch topical Q24H Qty: 28 RF: 0 aspirin 81 mg Tablet,Chewable 81 mg PO DAILY Qty: 30 RF: 0 linezolid 600 mg tablet 600 mg PO BID Qty: 24 RF: 0 Discharge Instructions Instructions: Nosebleed (ED) Additional Instructions: At this time your nosebleed was easily controlled using a medicated cottonball and a nasal clamp. You will be discharged with a cottonball left in your right nostril and the nasal clamp to use as needed. I recommend either taking a cotton ball out this evening or tomorrow morning. I would recommend reaching out to your primary care provider for outpatient follow-up at their discretion, if symptoms persist outpatient referral to ENT may be indicated. Please watch for new or worsening symptoms and return to the ER for any concerns. Medical Decision Making This is a 78-year-old gentleman who takes a baby aspirin daily presenting with epistasis from the right naris for approximately 1 hour. Denies recent illness or trauma. Denies otherwise easy bruising or bleeding. Has never had a nosebleed in the past. He appears well, nontoxic. He is holding a face cloth to his nose but does not appear to be holding proper pressure. Apparently at home he laid down and held his head back which do not cause blood to go into his mouth. He does present with mild tachycardia. No history of anemia. No evidence currently of hypotension. This appears to be a right nare anterior nosebleed although I am unable to visualize the site. Discussed our options, given how well he looks, will attempt a nasal packing using a cotton swab soaked with Afrin, 1% lidocaine, and coated in bacitracin as opposed to going straight to a Rhino Rocket which is likely more uncomfortable. I did have the patient blow his nose so that there is no clot present. I once again visualized, there was a slight trickle of blood but no obvious source. Nasal packing of a cotton ball soaked with Afrin, percent lidocaine, bacitracin was placed without difficulty. Nasal clamp was applied. Patient was observed in the ER for over an hour. He was able to drink water without difficulty. Upon reevaluation his blood pressure was normotensive and his heart rate came down into the 70s. He is currently asymptomatic. Nasal clamp was removed. The cotton packing remained in his right nare, no bleeding around the packing. Oropharynx was clear, no dried blood, no active bleeding down the pharynx. Discussed our options with patient and his daughter. They are comfortable discharge at this time, they will leave the packing in and remove it either this evening or tomorrow morning. We discussed proper nasal pressure and clamping techniques. Encouraged to return to the ER for new or worsening symptoms. Otherwise they will contact his primary care provider to discuss outpatient work-up and referral to ENT if symptoms persist. HPI General Mode of arrival: ambulatory. Date/Time Provider Initiated Documentation: 11/23/19 08:25. Limitations to Documentation: no limitations. Information obtained by: patient. HPI Narrative: This is a 78-year-old gentleman with a history of COPD, CVA, essential tremor, GERD, BPH, lung CA, who takes a baby aspirin daily presents to the ER today via private vehicle for a right nare nosebleed that began approximately 1 hour ago. He is not sure exactly what brought the nosebleed on, denies any trauma, recent runny nose, coughing, sneezing, illness. He denies history of nosebleed. He was initially directed to lay back while at home, felt as though there was blood running down his throat but while he sits up he does not have the sensation. He denies other irregular bruising or easy bleeding. Denies black tarry stools or bright red blood in his stools. He reports that the nosebleed is painless and he has not noticed blood coming from his left nostril. Patient currently has no additional questions or concerns. Related Data Home Medications Medication Instructions Recorded Confirmed Flovent HFA 2 puff INHALATION BID #1 inh 10/15/14 09/04/19 ipratropium-albuterol 3 ml UPD QID PRN PRN #60 vial 10/15/14 09/04/19 Fish Oil 1 cap PO DAILY 11/18/17 09/04/19 Serevent Diskus 1 puff INHALATION BID 11/18/17 09/04/19 albuterol sulfate [ProAir HFA] 2 puff INHALATION PRN PRN 11/18/17 09/04/19 multivitamin [Once Daily] 1 tab PO DAILY 11/18/17 09/04/19 tamsulosin 0.4 mg PO DAILY 11/18/17 09/04/19 aspirin 81 mg PO DAILY #30 tab 09/20/18 09/04/19 benzonatate 100 mg PO TID PRN #15 cap 09/20/18 09/04/19 lidocaine [Lidoderm] 2 patch TOPICAL Q24H #28 ea 09/20/18 09/04/19 linezolid 600 mg PO BID #24 tab 09/06/19 Previous Rx's Medication Instructions Recorded Flovent HFA 2 puff INHALATION BID #1 inh 10/15/14 ipratropium-albuterol 3 ml UPD QID PRN PRN #60 vial 10/15/14 aspirin 81 mg PO DAILY #30 tab 09/20/18 benzonatate 100 mg PO TID PRN #15 cap 09/20/18 lidocaine [Lidoderm] 2 patch TOPICAL Q24H #28 ea 09/20/18 linezolid 600 mg PO BID #24 tab 09/06/19 Allergies Allergy/AdvReac Type Severity Reaction Status Date / Time No Known Allergies Allergy Unverified 09/04/19 08:21 General Stated Complaint: Epistaxis CEE: 4 Review of Systems Constitutional Constitutional: Denies fever(s) and Denies headache(s) ENT Ears, Nose, Mouth, and Throat: Denies headache(s), Denies nasal congestion, Denies nasal trauma and Denies sore throat Cardiovascular Cardiovascular: Denies chest pain and Denies dyspnea Respiratory Respiratory: Denies cough and Denies dyspnea Gastrointestinal Gastrointestinal: Denies melena and Denies hematochezia Genitourinary Genitourinary: Denies hematuria Neurologic Neurologic: Denies headache(s) Hematologic/Lymphatic Hematologic/Lymphatic: Denies easy bleeding and Denies easy bruising [facility] Medical History BPH (benign prostatic hyperplasia) (Chronic) COPD (chronic obstructive pulmonary disease) (Chronic) CVA (cerebral vascular accident) (Chronic) Edema of left lower extremity (Acute) Essential tremor (Acute) Former smoker (Acute) GERD (gastroesophageal reflux disease) (Chronic) Lung mass (Acute) Social History Smoking/Tobacco Use Status: Former Tobacco Use Alcohol Intake: never Drug use: Never Substance use type: does not use Household members: spouse Housing: house Number of Children: 2 current occupation: Retired. [employer]. Do you feel safe at home: Yes Do you feel safe in your relationship?: Yes Exam Const General: cooperative, healthy appearing, comfortable and no acute distress Orientation: alert, awake and oriented x3 HENMT Head: normal to inspection, normocephalic and atraumatic General nose exam: external nose normal, septum normal and epistaxis on the right dried blood present (Large clot present) and source not visualized Face and sinus: normal facial exam Mouth: moist mucous membranes Throat: other (Dried blood present, no active bleeding, otherwise normal) Eyes Conjunctivae: conjunctivae normal Neck Neck: normal visual inspection, trachea midline and supple Resp Effort & Inspection: normal respiratory effort and able to speak in complete sentences Auscultation: clear to auscultation bilaterally Cardio Rate: tachycardic (112) Rhythm: regular rhythm Skin General skin exam: no rashes or lesions noted Neuro General: patient alert, patient awake, patient oriented x3, moves all extremities and no focal motor deficits Speech: speech normal Sensory Exam: no sensory deficits noted Psych Appearance: grossly normal Mental Status: mental status grossly normal Course Vital Signs Vital signs: Vital Signs Temperature 37.2 C 11/23/19 08:30 Pulse 109 H 11/23/19 08:30 Blood Pressure 161/88 H 11/23/19 08:30 Pulse Oximetry 95 11/23/19 08:30 Temperature 37.2 C 11/23/19 08:30 Temperature Source Skin 11/23/19 08:30 Pulse 109 H 11/23/19 08:30 Respiratory Effort Incrsd Work of Breathing 11/23/19 08:33 Blood Pressure 161/88 H 11/23/19 08:30 Blood Pressure Position Sitting 11/23/19 08:30 Pulse Oximetry 95 11/23/19 08:30 Oxygen Delivery Method Room Air 11/23/19 08:30 Oxygen Flow Rate 0 11/23/19 08:30
[2019-11-23 09:12] VITALS: BP 119/91; PULSE 74; O2SAT 93
== END 2019-11-23 10:00 | disposition home or self-care (01) ==
PROVIDERS: Emergency Provider Physician Assistant; PCP Family Medicine
DX: R04.0 Epistaxis (principal); Z79.82 Long term (current) use of aspirin; J44.9 Chronic obstructive pulmonary disease, unspecified; Z87.891 Personal history of nicotine dependence
CPT/HCPCS: 30901

== ENCOUNTER → 2020-09-24 13:05 | Outpatient (CLI) | payer MEDICARE, SELFPAY ==
--- NOTE | 2020-09-24 | DI.RAD_ITS ---
EXAM: XR CHEST 2V PA LATERAL CLINICAL HISTORY: SHORTNESS OF BREATH, R06.02, LUNG ADENOCARCINOMA, C34.90 TECHNIQUE: 2D digital imaging was performed. COMPARISON: CR CHEST 2 VIEWS PA,LAT from 11/18/2017 FINDINGS: MEDIASTINUM: Normal. HEART: Normal. PULMONARY VASCULATURE: Normal. LUNGS: Linear scarring is again seen in the left lingula. The lungs are hyperinflated with flattened diaphragms consistent with underlying COPD. There is a question of a round opacity just lateral to the right hilum which may represent a pulmonary nodule. The area measures approximately 1.4 cm. PLEURAL SPACE: No pleural effusion or pneumothorax. BONE:Within normal limits for the patient's age. OTHER FINDINGS:Normal. IMPRESSION: 1. No acute pulmonary process. 2. Scarring in the left lingula. 3. Question of a right perihilar nodule. CT scan of the chest should be considered for further evalu ation. DATA REPOSITORY: RADIATION DOSE DELIVERED:
== END ==
PROVIDERS: PCP Family Medicine; Visit Provider Family Medicine
DX: R91.8 Other nonspecific abnormal finding of lung field (principal); R06.02 Shortness of breath
CPT/HCPCS: 71046

== ENCOUNTER 2020-10-28 22:59 | Emergency (ER) | payer OTHER, SELFPAY ==
--- NOTE | 2020-10-28 23:11 | ED.GENADUL_ITS ---
Discharge Plan Disposition Patient Disposition: HOME Condition: Stable Discharge Details Clinical Impression: Urinary retention Primary Care Provider: Joe Quiñones ED Provider: Omar Longoria Home Meds and New Rx's Prescriptions: Continued sennosides-docusate sodium [Senokot-S] 8.6-50 mg tablet 1 tab-cap PO BID RF: 0 morphine 20 mg/5 mL (4 mg/mL) solution 20 mg PO Q4H PRNRF: 0 triamcinolone acetonide 0.5 % cream 1 applic topical BID RF: 0 budesonide-formoterol [Symbicort] 160-4.5 mcg/actuation HFA aerosol inhaler 2 puff inhalation BID RF: 0 fentanyl 12 mcg/hr patch 72 hour 1 patch transdermal Q72H MDD 24 mcg Qty: 5 RF: 0 ipratropium-albuterol 3 ML solution for nebulization 3 ml UPD QID PRN PRN (Reason: Shortness Of Breath) Qty: 60 RF: 0 multivitamin [Once Daily] 1 EACH tablet 1 tab PO DAILY RF: 0 albuterol sulfate [ProAir HFA] 200 PUFF/INH HFA aerosol inhaler 2 puff Inhalation PRN PRNRF: 0 Discharge Instructions Instructions: Uribe Catheter Placement and Care (ED) Additional Instructions: you had a uribe placed for urinary retention likely from an enlarged prostate the hospice nurses should be able to assist with managing the uirbe with you Medical Decision Making 79 yo male with hx of copd and lung cancer who is on hospice and has a history of bph comes in with chief complaint of difficulty urinating for a day. He states he has not been able to get urine out for a day. Denies any fevers or burning with urination, states just can't get urine out and feels pressure in the suprapubic region. He has mild suprapubic fullness no tenderness in the abdomen elsewhere. He confirms he is on hospice and doesn't want any workup or treatment other than having a uribe placed for comfort at this time. Will have nursing attempt to place uribe patient had over 600cc on bladder scan done by nursing and they were able to place a uribe with relief of pain, will d/c with uribe in place for comfort and he has hospice nursing that can assist with managing the uribe. Differential Diagnosis Differential Diagnosis: bph, uti, stricture Medical Records Medical records reviewed: Yes I reviewed the patient's medical records. HPI General Mode of arrival: ambulatory . Date/Time Provider Initiated Documentation: 10/28/20 23:00 . Limitations to Documentation: no limitations . Information obtained by: patient . History of Present Illness 79 year old M presents to the emergency department with the chief complaint of difficulty urinating, described as moderate, Patient started experiencing this day(s) (1) and it has been constant. No relieving factors improve symptom(s), No exacerbating factors reported . Related Data Home Medications Medication Instructions Recorded Confirmed ipratropium-albuterol 3 ml UPD QID PRN PRN #60 vial 10/15/14 09/04/19 albuterol sulfate [ProAir HFA] 2 puff INHALATION PRN PRN 11/18/17 09/04/19 multivitamin [Once Daily] 1 tab PO DAILY 11/18/17 09/04/19 budesonide-formoterol HFA 160 2 puff INHALATION BID 10/01/20 mcg-4.5 mcg/actuation aerosol inhaler morphine 20 mg/5 mL (4 mg/mL) oral 20 mg PO Q4H PRN ml 10/01/20 solution sennosides 8.6 mg-docusate sodium 1 tab-cap PO BID tab 10/01/20 50 mg tablet triamcinolone acetonide 0.5 % 1 applic TOPICAL BID 10/01/20 topical cream fentanyl 12 mcg/hr transdermal 1 patch TRANSDERMAL Q72H #5 ea MDD 10/21/20 patch 24 mcg Previous Rx's Medication Instructions Recorded ipratropium-albuterol 3 ml UPD QID PRN PRN #60 vial 10/15/14 fentanyl 12 mcg/hr transdermal 1 patch TRANSDERMAL Q72H #5 ea MDD 10/21/20 patch 24 mcg Allergies Allergy/AdvReac Type Severity Reaction Status Date / Time No Known Allergies Allergy Unverified 09/04/19 08:21 General CEE: 4 Review of Systems All systems reviewed & are unremarkable except as noted in HPI and below Constitutional Constitutional: Denies chills, Denies fever(s) and Denies weakness Cardiovascular Cardiovascular: Denies chest pain and Denies dyspnea Respiratory Respiratory: Denies cough and Denies dyspnea Gastrointestinal Gastrointestinal: Denies abdominal pain, Denies nausea and Denies vomiting Musculoskeletal Musculoskeletal: Denies joint swelling Neurologic Neurologic: Denies weakness PFSH Medical History (Updated 10/28/20 @ 23:39 by Omar Longoria MD) Actinic keratosis Adenocarcinoma, lung Advanced chronic obstructive pulmonary disease BPH (benign prostatic hyperplasia) Cerebrovascular disease, unspecified Compression neuropathy of left upper extremity COPD (chronic obstructive pulmonary disease) CVA (cerebral vascular accident) DNI (do not intubate) DNR (do not resuscitate) Edema of left lower extremity Essential tremor Former smoker GERD (gastroesophageal reflux disease) Hoarseness Impingement syndrome of unspecified shoulder Left rotator cuff tear Lung mass Peptic ulcer disease Plantar wart POLST (Physician Orders for Life-Sustaining Treatment) Shortness of breath Skin rash Weakness Social History Smoking/Tobacco Use Status: Former Tobacco Use Smoking risk assessment performed?: Yes Alcohol Intake: never Drug use: Never Substance use type: does not use Household members: spouse Housing: house Number of Children: 2 current occupation: Retired. [employer]. Do you feel safe at home: Yes Do you feel safe in your relationship?: Yes Exam Const General: no acute distress Orientation: alert HENMT Head: normal to inspection Ears: external ears normal General nose exam: external nose normal Mouth: moist mucous membranes Eyes General: appearance normal, both eyes and all related structures Neck Neck: normal visual inspection Resp Effort & Inspection: normal respiratory effort and able to speak in complete sentences Cardio Rate: regular rate Skin General skin exam: no rashes or lesions noted Neuro General: patient alert and patient oriented x3 Extrem General: normal to inspection Psych Mental Status: mental status grossly normal
[2020-10-28 23:57] VITALS: BP 117/68; PULSE 83; RESP 15; TEMP 36.4; O2SAT 87
[2020-10-29] MEDS: Lidocaine 2% Jelly 6 ML SYR (00:01)
== END 2020-10-29 00:10 | disposition home or self-care (01) ==
LOC: ER 23:53
PROVIDERS: Emergency Provider Emergency Medicine; PCP Family Medicine
DX: N40.1 Benign prostatic hyperplasia with lower urinary tract symptoms (principal); R33.8 Other retention of urine
CPT/HCPCS: 51702; 99283